=== PATIENT | male | born 1940 | race Caucasian/White ===

== ENCOUNTER → 2017-02-15 | Outpatient (CLI) | payer OTHER ==
[~2017-02-15] MED LIST: ASPI-113 PO; CARV3.122 PO; FURO20TA PO; LISI2.5T5 PO; NITR0.4S UT; SIMV80TA2 PO
[2017-02-15 13:14] LABS: ALT/SGPT 34 U/L (12-78); BLOOD UREA NITROGEN 22 mg/dl (7-18); BUN/CREATININE RATIO 21.5 (10-20); CALCIUM 10.1 mg/dl (8.5-10.1); CARBON DIOXIDE 23 mmol/L (21-32); CHLORIDE 106 mmol/L (98-107); CHOLESTEROL 156 mg/dl (0-200); GLUCOSE 104 mg/dl (70-99); POTASSIUM 4.6 mmol/L (3.5-5.1); SODIUM 138 mmol/L (136-145); TRIGLYCERIDES 483 mg/dl (0-150)
[2017-02-15 13:23] LABS: ESTIMATED AVERAGE GLUCOSE 143 mg/dl; HA1C FLAG Normal (Normal)
[2017-02-15 13:24] LABS: ALB/GLOB RATIO 1.1 (0.9-2); ALKALINE PHOSPHATASE 121 U/L (45-117); AST/SGOT 26 U/L (15-37); CHOLESTEROL/HDL RATIO 5.2; HDL CHOLESTEROL 30 mg/dl; PROSTATE SPECIFIC ANTIGEN 0.644 ng/ml (0.000-4.000)
== END | disposition home or self-care (01) ==
LOC: C.LABBFT 08:38
PROVIDERS: ATTEND Internal Medicine
DX: I11.0 Hypertensive heart disease with heart failure (principal); E78.00 Pure hypercholesterolemia, unspecified; I50.9 Heart failure, unspecified; D64.9 Anemia, unspecified; I48.91 Unspecified atrial fibrillation; E11.29 Type 2 diabetes mellitus with other diabetic kidney complication

== ENCOUNTER → 2017-04-03 | Outpatient (CLI) | payer OTHER ==
[~2017-04-03] MED LIST changes: +CEPH500C2 PO; +DIGO1TAB90 PO; +GLC/500 PO; +GLIM4TAB2 PO; +LOSA50TA6 PO; +SPIR25TA PO; +WARF-284 PO; +WARF5TAB7 PO
--- NOTE | 2017-04-03 13:47 | DIAGNOSTIC IMAGING REPORT ---
CHEST 2 VIEWS ROUTINE HISTORY: 76 years-old Male preoperative study without acute chest complaints. COMPARISON: Portable chest radiograph 07/15/2012 TECHNIQUE: The lateral views of the chest FINDINGS: Prior median sternotomy. Cardiac silhouette is again severely enlarged. There is mild pulmonary vascular congestion without overt pulmonary edema. Left pectoral pacer/defibrillator is noted with leads intact. There is an apparent left atrial exclusion device noted. No pneumothorax, pleural effusion or focal airspace consolidation. There is atherosclerosis of the aorta. The bones are grossly intact. IMPRESSION: Cardiomegaly and pulmonary vascular congestion without overt pulmonary edema or acute cardiopulmonary process. The above report was generated using voice recognition software. It may contain grammatical, syntax or spelling errors. Electronically signed by: Surjit Moran M.D. 04/03/2017 1:46 PM Dictated Date/Time: 04/03/2017 1:44 PM
[2017-04-03 14:44] LABS: BASO % 0.2 %; BASO ABS # 0.02 K/uL (0-0.2); COMPLETE YES; EOS % 1.3 %; HEMATOCRIT 40.2 % (42-52); IG% 0.9 %; LYMPH % 17.7 %; LYMPH ABS # 1.77 K/uL (1.2-3.4); MEAN CELL VOLUME 85.9 fL (80-100); MEAN CORPUSCULAR HGB CONC 32.6 g/dl (32-36); MONO % 7.1 %; NEUT % 72.8 %; PLATELET COUNT 240 K/uL (130-400); RED BLOOD COUNT 4.68 M/uL (4.7-6.1); WHITE BLOOD COUNT 10.01 K/uL (4.8-10.8)
[2017-04-03 15:00] LABS: BLOOD UREA NITROGEN 17 mg/dl (7-18); BUN/CREATININE RATIO 17.4 (10-20); CALCIUM 9.8 mg/dl (8.5-10.1); CARBON DIOXIDE 26 mmol/L (21-32); CHLORIDE 106 mmol/L (98-107); GLUCOSE 194 mg/dl (70-99); POTASSIUM 4.2 mmol/L (3.5-5.1); SODIUM 138 mmol/L (136-145)
[2017-04-03 15:01] LABS: INR 2.9 (0.9-1.1); PARTIAL THROMBOPLASTIN RATIO 1.8; PROTHROMBIN TIME (PATIENT) 31.9 SECONDS (9.0-12.0)
== END | disposition home or self-care (01) ==
LOC: C.RAD 13:08
PROVIDERS: ATTEND Internal Medicine Cardiovascular Disease
DX: I11.0 Hypertensive heart disease with heart failure (principal); I25.10 Atherosclerotic heart disease of native coronary artery without angina pectoris; Z95.810 Presence of automatic (implantable) cardiac defibrillator; E66.9 Obesity, unspecified; Z45.02 Encounter for adjustment and management of automatic implantable cardiac defibrillator; R09.89 Other specified symptoms and signs involving the circulatory and respiratory systems

== ENCOUNTER → 2017-04-12 | Day surgery (SDC) | payer OTHER ==
[~2017-04-12] VITALS: Ht 170.2 cm; Wt 102.5 kg
[~2017-04-12] MED LIST changes: +ACETAMINOPHEN 325 MG TAB PO PRN; +BACITRACIN 50000 UNIT VIAL ONE; +BACITRACIN OINT 0.9 GM PKT ONE; +CEFAZOLIN 2000 MG/60 ML D5W IV SCH; +CEFAZOLIN IV 1,000 MG in DEXTROSE 5% 50ML IV SCH; +FENTANYL CITRATE INJ 50 MCG/1 ML 2 ML VIAL ONE; +KETOROLAC TROMETHAMINE 10 MG TAB PO PRN; +MIDAZOLAM HCL 5 MG/ML 1 ML VIAL ONE
[2017-04-12 09:25] VITALS: BP 173/78; PULSE 66; TEMP 36.5; O2SAT 97; Ht 170.2 cm; Wt 102.5 kg
--- NOTE | 2017-04-12 09:59 | History & Physical Bridge Note ---
H&P Re-Evaluation Bridge Note: I have examined the patient, reviewed the History & Physical and in the interval since the performance of the History & Physical I have noted the following changes of clinical significance: No changes noted. I reviewed the indications, procedure, risks and alternatives to ICD replacement with possible lead replacement with the patient and his , they understand and he agrees to proceed. Alternatives reviewed. Consent obtained.
--- NOTE | 2017-04-12 09:59 | Procedure Note ---
Pre-Mod Sedation Assessment General Date of Moderate Sedation: Apr 12, 2017. Vital Signs: Vital Signs Past 12 Hours Date Time Temp Pulse Resp B/P (MAP) Pulse Ox O2 Delivery O2 Flow Rate FiO2 04/12/17 09:25 36.5 66 22 173/78 (109) 97 Room Air Review Cardiovascular: regular rate, rhythm Abdomen: normal bowel sounds Lungs: lungs clear Pre-Sedation Airway Assessment Oral Cavity: Dentures Hx of Sleep Apnea: No Smoking Status: Former Smoker Procedure Planning Contraindications-for Mod Sed: None Yes Notes The planned sedation has been discussed with the patient and consent obtained. I have identified the patient, determined the appropriateness of sedation and have assessed the patient immediately prior to the procedure. All medicine(s) and interventions are by my order.
[2017-04-12 11:34] VITALS: BP 146/61; PULSE 63; TEMP 36.6; O2SAT 96
--- NOTE | 2017-04-12 11:40 | [facility] Operative Report ---
Operative Report Operative Date Apr 12, 2017. Pre-Operative Diagnosis Biventricular ICD at replacement time Post-Operative Diagnosis same Procedure(s) Performed Biventricular ICD replacement Lead insulation repair Surgeon Dr. Escobar Safety Engineer Surgeon(s) none Estimated Blood Loss 30 cc Findings Stable lead measurements, ICD replaced using the original leads. One of the leads was in the subcutaneous tissue overlying the ICD, I was concerned the insulation may have been disrupted during the procedure therefore this was strengthened with a suture sleeve and silicon adhesive. No changes in measurements or impedance compared to preoperative measurements. Specimens Old ICD, return to [employer] Anesthesia local with sedation Complication(s) None Disposition Recovery Room / PACU Description of Procedure After obtaining informed consent for the procedure, the patient was brought to the laboratory being NPO after midnight. After identification in the laboratory the patient was prepped and draped in the standard sterile manner for a left- sided device replacement. The left prepectoral region was anesthetized with 1% lidocaine local anesthetic and once adequate anesthesia was obtained a 6 cm incision was made through the old implant scar and carried down to the ICD generator. The generator was dissected free of tissue and explanted. One of the leads was in the subcutaneous tissue overlying the device, the device had to be removed around this lead after dissecting the lead free of subcutaneous tissue. A bacitracin-soaked sponge(50,000 units in 50 cc normal saline solution) was placed in the pocket. The ICD was removed from the leads and connected to an external pacing system. Pacing and sensing characteristics were evaluated in both the right and left ventricular leads as noted on the implant data sheet. He was in atrial fibrillation throughout the procedure so atrial pacing could not be evaluated, atrial sensing and impedances were measured and are noted on the implant data sheet. A new ICD was attached to the leads and found to be functioning normally. The bacitracin-soaked sponge was removed from the pocket, the ICD was placed in the pocket. Out of concern that the insulation on the lead overlying the pacemaker (which had to be dissected free of tissue prior to explanted the device, although no change in impedance or threshold was observed) a suture sleeve filled with silicone adhesive was placed over the lead in the region of the incision and held in place using 3 ligatures of 2-0 silk. The incision was closed with a running double subcutaneous closure of 3-0 V-lock absorbable suture followed by a running subcuticular skin closure of 4-0 V lock absorbable suture. The patient tolerated the procedure well, there were no complications and the patient was transferred to the same-day surgery unit for observation and subsequent discharge. I attest to the content of the Intraoperative Record and any orders documented therein. Any exceptions are noted below.
--- NOTE | 2017-04-12 11:41 | Procedure Note ---
Post-Mod Sedation Assessment General Date of Moderate Sedation Apr 12, 2017. Vital Signs: Vital Signs Past 12 Hours Date Time Temp Pulse Resp B/P (MAP) Pulse Ox O2 Delivery O2 Flow Rate FiO2 04/12/17 11:12 70 16 135/83 (100) 98 Room Air 04/12/17 09:25 36.5 66 22 173/78 (109) 97 Room Air Review - Discharge Criteria Vital Signs Stable: Yes Alert/Oriented/Conversant: Yes Returned to Baseline Mental St: Yes Nausea Absent/Minimal: Yes Pain/Discomfort/Absent/Minimal: Yes Normal/Baseline Respirations: Yes Active Bleeding?: No
[2017-04-12 12:05] VITALS: BP 146/78; PULSE 59; O2SAT 97
[2017-04-12 12:32] VITALS: BP 146/69; PULSE 60; O2SAT 98
--- NOTE | 2017-04-12 12:41 | Discharge Instructions ---
Discharge Instructions Date of Service Apr 12, 2017. Admission Reason for Admission: ICD at recommended replacement time Discharge Discharge Diagnosis / Problem: ICD replacement Discharge Goals Goal(s): Improve disease control Activity Recommendations Activity Limitations: resume your previous activity . Instructions / Follow-Up Instructions / Follow-Up ACTIVITY RECOMMENDATIONS: * Do not raise affected arm over head for 2 weeks. SPECIAL CARE INSTRUCTIONS: * If bleeding occurs, apply direct pressure to area for 5 minutes. * Call your doctor if you have severe pain, fever, drainage or bleeding at site. * Keep dressing on and dry for 48 hours then remove. * Keep any scheduled doctor's appointment. * Implant Card - hand held device with website information given. SKIN IRRITATION: * You may experience some redness and/or swelling in the area where radiation was administered. If any skin irritation occurs, please contact your family physician. FOLLOW UP VISIT: Keep any scheduled doctor appointments. Current Hospital Diet Patient's current hospital diet: AHA Diet (Heart Healthy) Discharge Diet Recommended Diet: AHA Diet (Heart Healthy) Procedures Procedures Performed: Biventricular ICD replacement Pending Studies Studies pending at discharge: no Laboratory Results Hemoglobin A1c Test 02/15/17 08:40 Range/Units Estimated Average Glucose 143 mg/dl Hemoglobin A1c 6.6 H 4.5-5.6 % Lipid Panel Test 02/15/17 08:40 Range/Units Triglycerides Level 483 H 0-150 mg/dl Cholesterol Level 156 0-200 mg/dl HDL Cholesterol 30 mg/dl Cholesterol/HDL Ratio 5.2 LDL Cholesterol, Calculated mg/dl Medical Emergencies . Who to Call and When: Medical Emergencies: If at any time you feel your situation is an emergency, please call 911 immediately. . Non-Emergent Contact Non-Emergency issues call your: Primary Care Provider . . "Provider Documentation" section prepared by Lavon Escobar. . VTE Core Measure Inpt VTE Proph given/why not?: Warfarin (Coumadin)
[2017-04-12 13:03] VITALS: BP 134/66; PULSE 60; O2SAT 98
== END | disposition home or self-care (01) ==
LOC: C.ACU 08:42
PROVIDERS: ATTEND Internal Medicine Cardiovascular Disease
DX: Z45.02 Encounter for adjustment and management of automatic implantable cardiac defibrillator (principal); I25.10 Atherosclerotic heart disease of native coronary artery without angina pectoris; I11.0 Hypertensive heart disease with heart failure; E11.9 Type 2 diabetes mellitus without complications; I34.0 Nonrheumatic mitral (valve) insufficiency; E78.5 Hyperlipidemia, unspecified; Z79.01 Long term (current) use of anticoagulants; Z79.82 Long term (current) use of aspirin

== ENCOUNTER → 2017-05-30 | Outpatient (CLI) | payer OTHER ==
[~2017-05-30] MED LIST changes: -ACETAMINOPHEN 325 MG TAB PO PRN; -BACITRACIN 50000 UNIT VIAL ONE; -BACITRACIN OINT 0.9 GM PKT ONE; -CEFAZOLIN 2000 MG/60 ML D5W IV SCH; -CEFAZOLIN IV 1,000 MG in DEXTROSE 5% 50ML IV SCH; -FENTANYL CITRATE INJ 50 MCG/1 ML 2 ML VIAL ONE; -KETOROLAC TROMETHAMINE 10 MG TAB PO PRN; -LISI2.5T5 PO; -MIDAZOLAM HCL 5 MG/ML 1 ML VIAL ONE; -NITR0.4S UT
--- NOTE | 2017-05-30 16:12 | DIAGNOSTIC IMAGING REPORT ---
THORACIC SPINE 3 VIEWS ROUTINE HISTORY: 76 years-old Male M54.6 Acute thoracic back paincall with results acute back pain without reported trauma COMPARISON: Chest radiograph 04/03/2017 TECHNIQUE: Frontal and lateral views of the chest FINDINGS: 12 rib-bearing thoracic-type vertebral segments are present. Alignment is satisfactory. No compression deformity. Multilevel endplate spurring and facet arthrosis. Intervertebral disc space narrowing is seen most pronounced within the mid thoracic levels. Cervicothoracic junction is somewhat subvisualized secondary to soft tissue. Prior median sternotomy. Left atrial exclusion device noted. Prosthetic cardiac valvular ring noted. Pacer/ICD leads overlie the right atrium and right ventricle. IMPRESSION: Multilevel degenerative changes of the thoracic spine without acute fracture or subluxation. The above report was generated using voice recognition software. It may contain grammatical, syntax or spelling errors. Electronically signed by: Surjit Moran M.D. 05/30/2017 4:11 PM Dictated Date/Time: 05/30/2017 4:09 PM
--- NOTE | 2017-05-30 17:23 | DIAGNOSTIC IMAGING REPORT ---
L RIBS UNILATERAL WITH PA CHEST CLINICAL HISTORY: R07.81 Rib pain on left side please call with results COMPARISON STUDY: Chest 04/03/2017. FINDINGS: There is a 2.5 cm mass within the left upper lobe. Left-sided pacemaker is again noted. The heart remains mildly enlarged. Poststernotomy changes. No pleural effusions. No pneumothorax. No acute rib fractures identified. IMPRESSION: 1. No acute rib fractures. No pneumothorax. 2. A 2.5 cm left upper lobe nodular opacity. Recommend dedicated nonemergent chest CT to exclude a neoplasm. 3. These findings were called/faxed to the referring physician following dictation. Electronically signed by: Konstantin Waters M.D. 05/30/2017 5:22 PM Dictated Date/Time: 05/30/2017 5:11 PM
== END | disposition home or self-care (01) ==
LOC: C.RAD 15:18
PROVIDERS: ATTEND Internal Medicine
DX: M54.6 Pain in thoracic spine (principal); R07.81 Pleurodynia

== ENCOUNTER → 2017-06-20 | Outpatient (CLI) | payer OTHER ==
[~2017-06-20] MED LIST changes: -CEPH500C2 PO; +OXYC-57 PO
--- NOTE | 2017-06-20 13:41 | DIAGNOSTIC IMAGING REPORT ---
PET/CT HISTORY: R91.1 SOLITARY PULMONARY NODULE TECHNIQUE: PET/CT was performed from the base of the skull through the pelvis following the intravenous administration of 14.6 mCi of F18-FDG. Non-contrast CT imaging was performed over the same range without breath-hold for attenuation correction of PET images and anatomic correlation, but not for primary interpretation as it is not of standard diagnostic quality. CT DOSE: COMPARISON: Chest CT 06/05/2017. FINDINGS: HEAD AND NECK: There is a 2 cm FDG avid focus within the right posterior cerebellar hemisphere. This is suspicious for a metastatic lesion. This demonstrates intense FDG uptake with an SUV max of 12. No FDG avid or enlarged cervical lymph nodes. CHEST: FDG avid spiculated 2.4 cm nodule within the superior segment of the left lower lobe demonstrating an SUV max of 5.7. Mild FDG uptake within the mildly enlarged subcarinal lymph nodes demonstrating an SUV max of 3.3. Dominant subcarinal lymph node measures 2.1 x 1.0 cm. No FDG avid or enlarged hilar lymph nodes. The heart is enlarged. Left-sided pacemaker. Small left pleural effusion has slightly increased in size. Multiple pleural/extrapleural soft tissue nodules within the left lung base posteriorly. These demonstrate FDG uptake and are consistent with metastatic disease. There is also FDG uptake within the left pleural fluid consistent with a metastatic involvement. Dominant FDG avid pleural/extrapleural nodule seen within the left lung base on image 121 measures 1.4 x 0.7 cm. This demonstrates an SUV max of 3.4. Left pleural fluid FDG uptake measures an SUV max of 5.4. ABDOMEN/PELVIS: No FDG avid hepatic, splenic, adrenal masses. Left hepatic lobe and left renal cysts remain unchanged. No FDG avid abdominal or pelvic lymphadenopathy. Small fat-containing left inguinal hernia. Colonic diverticulosis. MUSCULOSKELETAL: Multiple FDG avid lytic lesions identified at C6, bilateral first ribs, left posterior 10th rib spinous process of L4, and within the left acetabulum. One of the left posterior 10th rib lytic lesions results in a pathologic fracture. Dominant lytic lesion within the left acetabulum measures 2.6 cm with an SUV max of 6.7. IMPRESSION: 1. A 2.4 cm FDG avid nodule within the superior segment of the left lower lobe. This favors a primary bronchogenic malignancy. 2. Mildly enlarged and FDG avid subcarinal lymph nodes concerning for metastatic disease. 3. FDG uptake within the small left pleural effusion and multiple small FDG avid left basilar pleural/extrapleural soft tissue nodules consistent with metastatic disease. 4. A 2 cm FDG avid focus within the right cerebellar hemisphere. This also likely represents a metastatic lesion. Follow-up brain MRI is recommended for further evaluation. 5. Multiple FDG avid lytic lesions within the osseous structures as described above consistent with additional sites of metastatic disease.. Electronically signed by: Konstantin Waters M.D. 06/20/2017 1:39 PM Dictated Date/Time: 06/20/2017 1:12 PM
== END | disposition home or self-care (01) ==
LOC: C.PET 10:25
PROVIDERS: ATTEND Surgery
DX: R91.1 Solitary pulmonary nodule (principal)

== ENCOUNTER 2017-06-22 05:10 | Day surgery (SDC) | payer OTHER ==
[2017-06-19 09:23] VITALS: BMI 36.0
[2017-06-19 14:41] LABS: BASO % 0.3 %; BASO ABS # 0.03 K/uL (0-0.2); COMPLETE YES; EOS % 1.1 %; IG% 0.6 %; LYMPH % 20.7 %; LYMPH ABS # 2.38 K/uL (1.2-3.4); MEAN CELL VOLUME 83.2 fL (80-100); MEAN CORPUSCULAR HEMOGLOBIN 28.1 pg (25-34); MEAN CORPUSCULAR HGB CONC 33.8 g/dl (32-36); MEAN PLATELET VOLUME 9.6 fL (7.4-10.4); MONO % 6.8 %; NEUT % 70.5 %; PLATELET COUNT 273 K/uL (130-400); RED BLOOD COUNT 4.69 M/uL (4.7-6.1); WHITE BLOOD COUNT 11.51 K/uL (4.8-10.8)
[2017-06-19 14:54] LABS: BUN/CREATININE RATIO 17.5 (10-20); CALCIUM 10.4 mg/dl (8.5-10.1); CREATININE 0.91 mg/dl (0.60-1.40)
[~2017-06-22] VITALS: Ht 170.2 cm; Wt 102.7 kg
[~2017-06-22 05:10] MED LIST changes: -OXYC-57 PO
[2017-06-22 05:39] VITALS: BP 183/92; PULSE 79; TEMP 36.5; O2SAT 96; Ht 170.2 cm; Wt 102.7 kg
[2017-06-22] MEDS ORDERED: OXYC-57 PO (06:01)
[2017-06-22 06:11] LABS: INR 1.2 (0.9-1.1); PARTIAL THROMBOPLASTIN RATIO 1.3; PROTHROMBIN TIME (PATIENT) 12.5 SECONDS (9.0-12.0)
[2017-06-22] MEDS ORDERED: LIDOCAINE HCL 2% 2 ML VIAL (20MG/ML) ONE (06:51)
[2017-06-22] MEDS ORDERED: DEXAMETHASONE SOD INJ 4 MG/ML VIAL ONE (06:51)
[2017-06-22] MEDS ORDERED: MIDAZOLAM HCL 1 MG/ML 2ML VIAL ONE (06:51)
[2017-06-22] MEDS ORDERED: PROPOFOL IV EMULSION 10 MG/ML 20 ML VIAL IV ONE (06:51)
[2017-06-22] MEDS ORDERED: FENTANYL CITRATE INJ 50 MCG/1 ML 2 ML VIAL ONE (06:51)
[2017-06-22] MEDS ORDERED: GLYCOPYRROLATE INJ 0.2 MG/ML VIAL ONE (06:51)
[2017-06-22] MEDS ORDERED: NEOSTIGMINE METHYLSULFATE 5 MG/5 ML SYR ONE ×2 (06:51→07:16)
[2017-06-22] MEDS ORDERED: ONDANSETRON INJ 2 MG/ML 2 ML VIAL ONE (06:51)
[2017-06-22] MEDS ORDERED: ROCURONIUM BROMIDE 10 MG/ML 5 ML VIAL IV ONE (07:02)
[2017-06-22] MEDS ORDERED: CLINDAMYCIN PHOS 150 MG/ML 2 ML VIAL ONE (07:16)
--- NOTE | 2017-06-22 07:33 | History & Physical Bridge Note ---
H&P Re-Evaluation Bridge Note: I have examined the patient, reviewed the History & Physical and in the interval since the performance of the History & Physical I have noted the following changes of clinical significance: No changes noted
--- NOTE | 2017-06-22 08:02 | Discharge Instructions ---
Discharge Instructions Date of Service Jun 22, 2017. Visit Reason for Visit: Lung Mass, Diabetes Discharge Discharge Diagnosis / Problem: Lung Mass Discharge Goals Goal(s): Learn about illness Activity Recommendations Activity Limitations: resume your previous activity (in 24 hours) Anesthesia . Post Anesthesia Instructions: If you have had General Anesthesia or IV Sedation: * Do not drive today. * Resume driving when surgeon permits. * Do not make important decisions or sign legal documents today. * Call surgeon for: 1. Temperature elevations greater than 101 degrees F. 2. Uncontrollable pain. 3. Excessive bleeding. 4. Persistent nausea and vomiting. 5. Medication intolerance (nausea, vomiting or rash). * For nausea and vomiting use only clear liquids such as: tea, soda, bouillon until nausea subsides, then gradually increase diet as tolerated. * If you have any concerns or questions, call your surgeon's office. If physician is unavailable and it is an emergency, call 911 or go to the nearest emergency room. . Instructions / Follow-Up Instructions / Follow-Up 1. You may cough up some blood. Call physician if excessive amount noted. 2. Due to an abnormality on your PET scan you will need a CT scan of your head. Dr. Almazan's office will arrange this for you and call you with the date and time. 3. Office appointment with Dr. Almazan in 1 week. Office will call you with date and time of appointment. Diet Recommendations Recommended Home Diet: resume previous diet Pending Studies Studies pending at discharge: no Medical Emergencies . Who to Call and When: Medical Emergencies: If at any time you feel your situation is an emergency, please call 911 immediately. . Non-Emergent Contact Non-Emergency issues call your: Surgeon Call Non-Emergent contact if: you have a fever, your pain is not controlled . . "Provider Documentation" section prepared by Thai Raya. .
[2017-06-22] MEDS ORDERED: ATROPINE SULFATE 0.1 MG/ML 5ML SYR IV PRN (08:15)
[2017-06-22] MEDS ORDERED: ONDANSETRON INJ 2 MG/ML 2 ML VIAL IV PRN (08:15)
[2017-06-22] MEDS ORDERED: EpHEDrine SULFATE INJ 50 MG/ML AMP IV PRN (08:15)
[2017-06-22] MEDS ORDERED: FENTANYL CITRATE INJ 50 MCG/1 ML 2 ML VIAL IV PRN (08:15)
[2017-06-22] MEDS ORDERED: LARYING-O-JET KIT (LTA) ONE ×2 (08:35)
--- NOTE | 2017-06-22 09:26 | DIAGNOSTIC IMAGING REPORT ---
CHEST 1 VIEW FRONTAL CLINICAL HISTORY: NAVIGATIONAL BRONCH TECHNIQUE: Image intensifier COMPARISON STUDY: None FINDINGS: Image intensifier usage for navigational bronchoscopy. IMPRESSION: Navigational bronchoscopy. The above report was generated using voice recognition software. It may contain grammatical, syntax or spelling errors. Electronically signed by: Anuel Beck M.D. 06/22/2017 9:25 AM Dictated Date/Time: 06/22/2017 9:24 AM
--- NOTE | 2017-06-22 09:38 | DIAGNOSTIC IMAGING REPORT ---
CHEST ONE VIEW PORTABLE CLINICAL HISTORY: 76 years-old Male presenting with FOB, lung mass. TECHNIQUE: Portable upright AP view of the chest was obtained. COMPARISON: 04/03/2017. FINDINGS: Left subclavian implanted cardiac defibrillator with leads to the right atrium and right ventricular apex. A coronary sinus or epicardial lead is also in place. Median sternotomy wires, prosthetic mitral valve, and left atrial appendage occlusion device unchanged. Atherosclerosis of aortic arch with prominence of the aortic contour, unchanged from prior. Cardiac silhouette mildly enlarged. Prominence of pulmonary vasculature. Redemonstration of the nodule in the superior segment of the left lower lobe. No new focal infiltrate. Trace left pleural effusion. No pneumothorax. Degenerative changes of the thoracic spine. Upper abdomen normal. IMPRESSION: 1. Redemonstration of left lung nodule and trace left pleural effusion. No new focal infiltrate. Electronically signed by: Monty Dunne M.D. 06/22/2017 9:36 AM Dictated Date/Time: 06/22/2017 9:31 AM
--- NOTE | 2017-06-22 09:55 | Anesthesiology Progress Note ---
Anesthesia Post Op Note Date & Time Jun 22, 2017 at 09:54 Vital Signs Pain Intensity: 0 Vital Signs Past 12 Hours Date Time Temp Pulse Resp B/P (MAP) Pulse Ox O2 Delivery O2 Flow Rate FiO2 06/22/17 09:50 36.0 61 15 155/77 96 Room Air 06/22/17 09:40 64 15 155/86 99 Nasal Cannula 2 06/22/17 09:30 63 14 155/81 99 Oxymask 5 06/22/17 09:21 36.1 70 14 158/86 99 Oxymask 10 06/22/17 05:39 36.5 79 18 183/92 (122) 96 Room Air Notes Mental Status: alert / awake / arousable, participated in evaluation Pt Amnestic to Procedure: Yes Nausea / Vomiting: adequately controlled Pain: adequately controlled Airway Patency, RR, SpO2: stable & adequate BP & HR: stable & adequate Hydration State: stable & adequate Anesthetic Complications: no major complications apparent
[2017-06-22 10:00] VITALS: BP 156/78; PULSE 70; TEMP 36.9; O2SAT 97
[2017-06-22 11:00] VITALS: BP_SYST 121; BP_SYST 153; BP_DIAS 59; BP_DIAS 78; PULSE 60; TEMP 36.7; O2SAT 94
--- NOTE | 2017-06-22 12:02 | OPERATIVE REPORT ---
DATE OF OPERATION: 06/22/2017 PREOPERATIVE DIAGNOSIS: Suspicious mass, superior segment left lower lobe. POSTOPERATIVE DIAGNOSIS: Same. PROCEDURES: 1. Endobronchial ultrasound with biopsy. 2. Navigational bronchoscopy with brushings biopsy forceps and washings. ANESTHESIA: General anesthesia endotracheal intubation. SURGEON: Bryan Almazan MD AVIATION CONSULTANT: TOY Marino SPECIFICS OF PROCEDURE: Jesus Craft is a 76-year-old male who has a hypermetabolic mass, which certainly looks like a cancer in the superior segment of the left lower lobe. I saw the patient in the office and ordered a PET scan and set him up for a navigational bronchoscopy and endobronchial ultrasound for staging and possible diagnosis. His PET scan was done earlier this week and the patient has a possible cerebral met; however, this did not get his full brain. He has a pacemaker and is not a candidate for an MRI, so we are going to get a dedicated CT scan of his head. In the meantime, I still think that a tissue diagnosis is important. The PET of his chest was concerning. The mass lit up and is hypermetabolic, which is expected. However, there are some pleural changes, which were also worrisome. At this point, we elected to proceed with an endobronchial ultrasound biopsy and a navigational bronchoscopy. DESCRIPTION OF PROCEDURE: On 06/22/2017, the patient was brought to the operating room and underwent an endotracheal intubation with an 8.5 endotracheal tube. Prophylactic antibiotics were given and an appropriate time-out called. The endobronchial ultrasound scope was then placed. He really did not have much in the way of lymphadenopathy. I biopsied the right level 10, right level 11, level 7, left level 10, and left level 11. We did get some lymphocytes back, although these nodes were very small and not hypermetabolic. We got into no bleeding with this. After irrigating this out, we then switched over to fiberoptic bronchoscope. We then registered the patient and then using the navigational probe, we went out to the superior segment in the lower lobe mass. It was a difficult to navigate as this is the superior segment of the lower lobe and we went out with our navigational probe and then used our radial ultrasound probe to assure that we were in proper position. Brushings, needle biopsies, forceps and then biopsies and then a bronchial wash was done. I then slowly withdrew the bronchoscope and suctioned out all blood and debris. We really did get into no active bleeding with this. There were no endobronchial lesions. There was really not much in the way of sputum either. The bronchoscope was removed. He was awakened from anesthesia and transported back to the post-anesthesia care unit in stable condition. TOY Marino, was there for the duration of the case and was helpful in stablizing the scope in and in exchanging instruments. I attest to the content of the Intraoperative Record and any orders documented therein. Any exceptions are noted below. ROMEO
--- NOTE | 2017-06-22 12:13 | Anesthesiology Progress Note ---
Anesthesia Post Op Note Date & Time Jun 22, 2017 at 12:13 Vital Signs Pain Intensity: 0 Vital Signs Past 12 Hours Date Time Temp Pulse Resp B/P (MAP) Pulse Ox O2 Delivery O2 Flow Rate FiO2 06/22/17 11:00 36.7 60 18 121/59 94 Room Air 06/22/17 10:30 36.8 62 18 153/78 (103) 94 Room Air 06/22/17 10:00 36.9 70 16 156/78 97 Room Air 06/22/17 09:50 36.0 61 15 155/77 96 Room Air 06/22/17 09:40 64 15 155/86 99 Nasal Cannula 2 06/22/17 09:30 63 14 155/81 99 Oxymask 5 06/22/17 09:21 36.1 70 14 158/86 99 Oxymask 10 06/22/17 05:39 36.5 79 18 183/92 (122) 96 Room Air Notes Mental Status: alert / awake / arousable, participated in evaluation Pt Amnestic to Procedure: Yes Nausea / Vomiting: adequately controlled Pain: adequately controlled Airway Patency, RR, SpO2: stable & adequate BP & HR: stable & adequate Hydration State: stable & adequate Anesthetic Complications: no major complications apparent
== END 2017-06-22 11:28 | disposition home or self-care (01) ==
LOC: C.ACU 05:10
PROVIDERS: ATTEND Surgery
DX: R91.1 Solitary pulmonary nodule (principal); E11.9 Type 2 diabetes mellitus without complications; I25.10 Atherosclerotic heart disease of native coronary artery without angina pectoris; G47.33 Obstructive sleep apnea (adult) (pediatric); I48.91 Unspecified atrial fibrillation; I50.9 Heart failure, unspecified; E78.00 Pure hypercholesterolemia, unspecified; I25.2 Old myocardial infarction; Z95.1 Presence of aortocoronary bypass graft; Z87.891 Personal history of nicotine dependence; Z79.01 Long term (current) use of anticoagulants; Z79.899 Other long term (current) drug therapy; E66.9 Obesity, unspecified; Z68.36 Body mass index [BMI] 36.0-36.9, adult; Z80.49 Family history of malignant neoplasm of other genital organs; Z82.49 Family history of ischemic heart disease and other diseases of the circulatory system

== ENCOUNTER → 2017-06-27 | Outpatient (CLI) | payer OTHER ==
[~2017-06-27] MED LIST changes: +OPTIRAY 320 IV PRN; +OXYC-57 PO
--- NOTE | 2017-06-27 10:28 | DIAGNOSTIC IMAGING REPORT ---
CT HEAD COMBO CT DOSE: 1459.56 mGycm TECHNIQUE: Noncontrast images were obtained through the brain in the axial plane. The sequence was repeated following administration of 95 Optiray 320. A dose lowering technique was utilized adhering to the principles of ALARA. 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 Abnormal head CT with a possible intracranial metastasis. COMPARISON: PET/CT scan dated 08/10/2016 FINDINGS: There is a 5.6 cm left frontal mass. This demonstrates mixed attenuation on noncontrast studies and may contain internal calcification. There is subtle postcontrast enhancement. It is difficult to determine with this lesion is intra or extra-axial. In addition there is enhancing 22 mm right cerebellar mass. Again it is difficult to determine whether this is intra or extra-axial. If possible, an MRI the brain would be quite useful in follow-up. There are minimal white matter hypodensities likely on a small vessel basis. There is no evidence of pathologic ventricular dilatation. There is no evidence of acute sinusitis IMPRESSION: 1. Mixed attenuation 5.6 cm left frontal mass with subtle postcontrast enhancement. It is conceivable that this is an extra-axial lesion. There is no associated vasogenic edema. The lesion is not felt to be typical for a metastatic deposit. 2. 22 mm enhancing dural based right cerebellar mass. Again it is difficult to determine with this is an intra or extra-axial lesion. 3. If possible, an MRI the brain would be quite useful in follow-up Electronically signed by: Chin Mendoza M.D. 06/27/2017 10:27 AM Dictated Date/Time: 06/27/2017 10:18 AM
== END ==
LOC: C.CTS 09:39
PROVIDERS: ATTEND Surgery
DX: R91.1 Solitary pulmonary nodule (principal); G93.89 Other specified disorders of brain

== ENCOUNTER → 2017-07-18 | Day surgery (SDC) | payer OTHER ==
[~2017-07-18] VITALS: Ht 170.2 cm; Wt 98.0 kg
[~2017-07-18] MED LIST changes: +ACET-1256 PO; +HYDR-3419 PO; -OPTIRAY 320 IV PRN
[2017-07-18 09:11] VITALS: BP 140/79; PULSE 68; TEMP 36.3; O2SAT 95; Ht 170.2 cm; Wt 98.0 kg
[2017-07-18 09:22] LABS: PLATELET COUNT 269 K/uL (130-400)
[2017-07-18 09:32] LABS: INR 1.8 (0.9-1.1); PARTIAL THROMBOPLASTIN RATIO 1.6; PROTHROMBIN TIME (PATIENT) 18.6 SECONDS (9.0-12.0)
== END | disposition home or self-care (01) ==
LOC: C.ACU 08:32
PROVIDERS: ATTEND Surgery
DX: R06.02 Shortness of breath (principal); Z53.9 Procedure and treatment not carried out, unspecified reason

== ENCOUNTER → 2017-08-13 | Outpatient (CLI) | payer OTHER ==
[~2017-08-13] MED LIST changes: -ACET-1256 PO; +DRGTP12 TD; -HYDR-3419 PO; -OXYC-57 PO; +OXYC7.5T65 PO
== END | disposition home or self-care (01) ==
LOC: C.PATHSPEC 17:35
PROVIDERS: ATTEND Plastic Surgery
DX: C44.40 Unspecified malignant neoplasm of skin of scalp and neck (principal); Z85.118 Personal history of other malignant neoplasm of bronchus and lung

== ENCOUNTER 2017-08-21 10:48 | Inpatient (IN) | payer OTHER ==
[2017-08-21] VITALS (11 sets, daily range): BP systolic 144–169; BP diastolic 81–99; PULSE 60–66; TEMP 36.2–36.8; O2SAT 97–99; BMI 32.4
[~2017-08-21] VITALS: Ht 170.2 cm; Wt 83.5 kg
[2017-08-21] MEDS ORDERED: HYDROmorphone INJ 1 MG/ML SYR IV STA ×2 (10:51→14:14)
[2017-08-21] MEDS ORDERED: ONDANSETRON INJ 2 MG/ML 2 ML VIAL IV STA (10:51)
[2017-08-21] MEDS ORDERED: MoRPHine SULFATE 10 MG/ML CARP/VIAL ONE (11:05)
--- NOTE | 2017-08-21 11:13 | EMERGENCY ROOM VISIT NOTE ---
History Report prepared by Hany: Galindo Goldstein Under the Supervision of: Dr. Rajesh Escobedo M.D. First contact with patient: 10:49 Stated Complaint: GENERALIZED PAIN History of Present Illness The patient is a 76 year old male who presents to the Emergency Room with complaints of an INR level of 8.0 that was recorded this morning. Earlier today , the patient's home health nurse found the patient's INR to be elevated. 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 He is currently experiencing pain to his collar bone and uses Fentanyl patches as pain management. He arrived to the ER via EMS, who gave him Morphine 10 mg IV which helped his pain. He is supposed to follow up with Dr. Zaragoza of Oncology tomorrow. He denies any other abnormal symptoms at this time. Source of History: patient Onset: recorded this morning Position: other (Global) Symptom Intensity: INR 8.0 Quality: other (Abnormal laboratory results) Timing: constant Note: He is having pain to his collar bone. He denies any other abnormal symptoms at this time. Review of Systems See HPI for pertinent positives & negatives. A total of 10 systems reviewed and were otherwise negative. Past Medical & Surgical Medical Problems: (1) Anemia (2) Aortic stenosis (3) Atrial fibrillation (4) Biventricular ICD (implantable cardioverter-defibrillator) in place (5) Cardiomyopathy (6) DM II (diabetes mellitus, type II), controlled (7) HLD (hyperlipidemia) (8) HTN (hypertension) (9) Non-small cell carcinoma of lung (10) Systolic CHF Surgical Problems: (1) S/P CABG x 3 Family History Omitted secondary to the patient's age. Social History Smoking Status: Former Smoker Smokeless Tobacco Use: No Drug Use: none Occupation Status: retired Current/Historical Medications Scheduled Aspirin Enteric Coated (Ecotrin Or Generic), 325 MG PO QAM Carvedilol (Coreg), 3.125 MG PO BID Digoxin (Digitek), 0.25 MG PO HS Fentanyl (Fentanyl), 25 MCG TD [id number] Furosemide (Lasix), 20 MG PO QAM Glimepiride (Glimepiride), 4 MG PO BID Losartan Potassium (Cozaar), 50 MG PO QAM Metformin Hcl (Glucophage), 1,000 MG PO BID Simvastatin (Zocor), 40 MG PO QPM Spironolactone (Aldactone), 25 MG PO QAM Warfarin Sod (Jantoven), 5 MG PO [id number] Warfarin Sodium (Warfarin Sodium), 7.5 MG PO tu-sun Scheduled PRN Oxycodone/Acetaminophen 7.5MG/325MG (Percocet 7.5MG/325MG), 1 TAB PO Q4 PRN for Pain Allergies Coded Allergies: No Known Allergies (Unverified , 08/21/17) Physical Exam Vital Signs Date Time Temp Pulse Resp B/P (MAP) Pulse Ox O2 Delivery O2 Flow Rate FiO2 08/21/17 12:45 81 20 139/84 97 Room Air 08/21/17 11:31 94 Nasal Cannula 4.0 08/21/17 11:04 74 08/21/17 10:50 36.4 94 20 118/95 93 Room Air 08/21/17 10:50 93 Room Air Physical Exam GENERAL: Patient is a healthy-appearing well-nourished male HEAD: Normocephalic atraumatic EYES: Ocular movements intact pupils equal and react to light OROPHARYNX mucous membranes are moist no exudates present no erythema or edema present NECK: Supple no nuchal rigidity CHEST: Good equal expansion LUNGS: Decreased breath sounds on the left. CARDIAC: Normal S1 and S2 ABDOMEN: Soft nontender no guarding BACK: No CVA tenderness EXTREMITIES: No pain upon palpation normal muscle strength in all groups no clubbing cyanosis or edema NEURO: Patient is following commands and answering questions appropriately. Alert and oriented x3 Cranial Nerves 2-12 grossly intact Medical Decision & Procedures ER Provider Diagnostic Interpretation: Radiology results as stated below per my review and radiologist interpretation: CHEST ONE VIEW PORTABLE HISTORY: Atypical CHEST PAIN COMPARISON: Chest 06/22/2017. FINDINGS: Large left pleural effusion which has significantly increased in size. The heart remains enlarged. Left-sided pacemaker is noted. There are poststernotomy changes. There is mild central pulmonary vascular congestion without overt edema. No pneumothorax. Consolidation within the left perihilar location. This may represent atelectasis from the large left pleural effusion. IMPRESSION: 1. Large left pleural effusion which has increased in size. 2. Mild pulmonary vascular congestion without overt edema. Electronically signed by: Konstantin Waters M.D. 08/21/2017 11:10 AM Dictated Date/Time: 08/21/2017 11:09 AM Laboratory Results Test 08/21/17 11:31 Total Bilirubin 0.3 mg/dl (0.2-1) Direct Bilirubin < 0.1 mg/dl (0-0.2) Aspartate Amino Transf (AST/SGOT) 15 U/L (15-37) Alanine Aminotransferase (ALT/SGPT) 30 U/L (12-78) Alkaline Phosphatase 93 U/L (45-117) Total Creatine Kinase 29 U/L (39-308) Creatine Kinase MB 1.8 ng/ml (0.5-3.6) Creatine Kinase MB Ratio 6.2 (0-3.0) Troponin I 0.021 ng/ml (0-0.045) Total Protein 6.7 gm/dl (6.4-8.2) Albumin 2.4 gm/dl (3.4-5.0) Lipase 111 U/L (73-393) Labs reviewed by ED physician. Medications Administered Medications (Trade) Dose Ordered Sig/Taryn Route Start Time Stop Time Status Last Admin Dose Admin Hydromorphone HCl (Dilaudid Inj) 1 mg NOW STAT IV 08/21/17 10:51 08/21/17 10:54 DC 08/21/17 11:25 1 MG Ondansetron HCl (Zofran Inj) 4 mg NOW STAT IV 08/21/17 10:51 08/21/17 10:55 DC 08/21/17 11:25 4 MG Phytonadione (Mephyton Tab) 5 mg NOW STAT PO 08/21/17 12:24 08/21/17 12:25 DC 08/21/17 12:44 5 MG Oxycodone/ Acetaminophen (Percocet 7.5-325MG Tab) 1 tab Q4 PRN PO 08/21/17 14:00 09/04/17 13:59 08/22/17 05:38 1 TAB Morphine Sulfate (MoRPHine SULFATE INJ) 4 mg Q2H PRN IV 08/21/17 14:00 09/04/17 13:59 08/22/17 04:21 4 MG ECG Indication: other (Abnormal Lab Results) Rate (beats per minute): 67 Rhythm: other (Paced) Findings: no acute ischemic change, no ectopy ED Course 1049: Past medical records reviewed. The patient was evaluated in room C3. A complete history and physical examination was performed. 1051: Ordered Zofran Inj 4 mg IV, Dilaudid Inj 1 mg IV 1219: Ordered Phytonadione 10 mg/Sodium Chloride 51 ml @ 102 mls/hr IV 1224: Ordered Mephyton Tab 5 mg PO 1259: Upon reexamination the patient is resting. I discussed results and treatment plan with the patient. He verbalizes agreement and understanding. I spoke with Dr. Rosales from the [place] [facility]. The patient will be evaluated for further management. Medical Decision Differential diagnosis: Etiologies such as metabolic, infection, hypo/hyperglycemia, electrolyte abnormalities, cardiac sources, intracerebral event, toxicologic, neurologic, as well as others were entertained. This is a 76-year-old male who presents emergency department complaining of right collarbone pain as well as a supratherapeutic INR. The patient's INR in the emergency department was found to be 10 area for this reason he was given oral vitamin K. The patient's left pleural effusion has greatly increased since his last x-ray in June. In addition he is diaphoretic and requiring oxygen. Based on these findings I did discuss the case with the hospitalist service who agreed to admit the patient. Patient family were in agreement with the treatment plan. Medication Reconcilliation Current Medication List: was personally reviewed by me Blood Pressure Screening Patient's blood pressure: Normal blood pressure Blood pressure disposition: Did not require urgent referral Consults Time Called: [phone] Consulting Physician: Dr. Rosales - [facility] [place] Returned Call: [phone] I discussed the patient's case with Dr. Rosales, she has agreed to evaluate the patient for further management and care. Impression Primary Impression: Pleural effusion Additional Impressions: Hypoxia Supratherapeutic INR Scribe Attestation The scribe's documentation has been prepared under my direction and personally reviewed by me in its entirety. I confirm that the note above accurately reflects all work, treatment, procedures, and medical decision making performed by me. Departure Information Dispostion Being Evaluated By Hospitalist Referrals No Doctor, Assigned (PCP) Problem Qualifiers
[2017-08-21 11:47] LABS: BASO % 0.1 %; BASO ABS # 0.01 K/uL (0-0.2); EOS % 0.1 %; EOS ABS # 0.01 K/uL (0-0.5); HEMATOCRIT 35.1 % (42-52); HEMOGLOBIN 11.5 g/dL (14.0-18.0); LYMPH % 2.6 %; LYMPH ABS # 0.36 K/uL (1.2-3.4); MEAN CELL VOLUME 82.2 fL (80-100); MEAN CORPUSCULAR HEMOGLOBIN 26.9 pg (25-34); MEAN CORPUSCULAR HGB CONC 32.8 g/dl (32-36); MEAN PLATELET VOLUME 8.9 fL (7.4-10.4); MONO % 4.7 %; MONO ABS # 0.66 K/uL (0.11-0.59); NEUT % 91.8 %; NEUT ABS # 12.93 K/uL (1.4-6.5); PLATELET COUNT 265 K/uL (130-400); RED CELL DISTRIBUTION WIDTH CV 15.2 % (11.5-14.5); WHITE BLOOD COUNT 14.07 K/uL (4.8-10.8)
[2017-08-21 12:06] LABS: ALBUMIN 2.4 gm/dl (3.4-5.0); ALT/SGPT 30 U/L (12-78); AST/SGOT 15 U/L (15-37); BLOOD UREA NITROGEN 19 mg/dl (7-18); CALCIUM 9.6 mg/dl (8.5-10.1); CARBON DIOXIDE 25 mmol/L (21-32); CREATININE 0.79 mg/dl (0.60-1.40); GLUCOSE 183 mg/dl (70-99); LIPASE 111 U/L (73-393); POTASSIUM 4.3 mmol/L (3.5-5.1); SODIUM 134 mmol/L (136-145)
[2017-08-21 12:11] LABS: ALKALINE PHOSPHATASE 93 U/L (45-117); CKMB 1.8 ng/ml (0.5-3.6); TOTAL PROTEIN 6.7 gm/dl (6.4-8.2)
[2017-08-21 12:14] LABS: INR > 10.0 (0.9-1.1)
[2017-08-21] MEDS ORDERED: PHYTONADIONE INJ 10 MG in SODIUM CHLORIDE 0.9% 50ML 50 ML IV STA (12:19)
[2017-08-21] MEDS ORDERED: PHYTONADIONE 5 MG TAB PO STA (12:24)
--- NOTE | 2017-08-21 13:28 | History and Physical ---
History & Physical Date & Time of Service: Aug 21, 2017 at 13:16 Chief Complaint: Generalized Pain Primary Care Physician: Stuart Johnston M.D. 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 Pt is present with his . Pt recently completed XRT therapy ( Jul 31 - Aug 17 x 10 cycles) to the right hip and pelvis. He reports pain is somewhat improved in the hip and low back but reports pain migrates to different locations. Currently he has pain in the right shoulder which is new x 5 days. Pts and he admit that shortness of breath has increased in the past 4-5 days and has worsened to the point where he cannot speak long sentences, and is easily winded with small movements. He is currently on 4L with adequate sats. The patient has not walked since prior to XRT. He uses a scooter to get around his house. Pt also has had night terrors which occur nightly which have worsened over the past 2 months. He recently had pain medication increased - fentanyl patch from 12.5 to 25 but denies that this increase has made night terrors worse. In regards to pain control, he see's little different with the medication adjustment. Pt has also had increased sporadic periods of confusion : last Sunday family was over for dinner and he became confused and aggitated and was removed from the dinner table. It took 45min-1 hour to calm him down. Pt had a planned appointment with Dr. Zaragoza tomorrow to discuss chemotherapy regimen options. The patient is being primarily cared for by his , but has no help from outside agencies which he would likely benefit from. CXR was reviewed showing large left sided pleural effusion. INR > 10. Vit K 5 mg IV was administered. Hgb stable at 11.5. Other electrolytes WNL. Past Medical/Surgical History Medical Problems: (1) Anemia (2) Aortic stenosis (3) Atrial fibrillation (4) Biventricular ICD (implantable cardioverter-defibrillator) in place (5) Cardiomyopathy (6) DM II (diabetes mellitus, type II), controlled (7) HLD (hyperlipidemia) (8) HTN (hypertension) (9) Non-small cell carcinoma of lung (10) Systolic CHF Surgical Problems: (1) S/P CABG x 3 Social History Smoking Status: Former Smoker Smokeless Tobacco Use: No Drug Use: none Marital Status: Housing status: lives with family Occupational Status: retired Immunizations History of Influenza Vaccine: Yes Influenza Vaccine Date: May 15, 2012 History of Tetanus Vaccine?: Yes History of Pneumococcal: Yes History of Hepatitis B Vaccine: No Multi-Drug Resistant Organisms History of MDRO: No Allergies Coded Allergies: No Known Allergies (Unverified , 08/21/17) Home Medications Scheduled Aspirin Enteric Coated (Ecotrin Or Generic), 325 MG PO QAM Carvedilol (Coreg), 3.125 MG PO BID Digoxin (Digitek), 0.25 MG PO HS Fentanyl (Fentanyl), 25 MCG TD [id number] Furosemide (Lasix), 20 MG PO QAM Glimepiride (Glimepiride), 4 MG PO BID Losartan Potassium (Cozaar), 50 MG PO QAM Metformin Hcl (Glucophage), 1,000 MG PO BID Simvastatin (Zocor), 40 MG PO QPM Spironolactone (Aldactone), 25 MG PO QAM Warfarin Sod (Jantoven), 5 MG PO q-a-o--sat Warfarin Sodium (Warfarin Sodium), 7.5 MG PO -sun Scheduled PRN Oxycodone/Acetaminophen 7.5MG/325MG (Percocet 7.5MG/325MG), 1 TAB PO Q4 PRN for Pain Review of Systems Constitutional: + weakness, + fatigue, No fever, No chills, No sweats Eyes: No redness, No diplopia ENT: No sore throat, No trouble swallowing Respiratory: + shortness of breath, + dyspnea at rest, No cough, No sputum, No wheezing, No hemoptysis Cardiovascular: No chest pain, No palpitations Abdomen: No pain, No nausea, No vomiting, No diarrhea, No constipation Musculoskeletal: + joint pain, No swelling, No calf pain Genitourinary - Male: + urinary retention, No hematuria, No dysuria Neurologic: + weakness, No numbness/tingling, No balance problems Psychiatric: + problem reported (night terrors) Endocrine: + fatigue Integumentary: No rash, No itch Physical Exam Vital Signs Date Time Temp Pulse Resp B/P (MAP) Pulse Ox O2 Delivery O2 Flow Rate FiO2 08/21/17 12:45 81 20 139/84 97 Room Air 08/21/17 11:31 94 Nasal Cannula 4.0 08/21/17 11:04 74 08/21/17 10:50 36.4 94 20 118/95 93 Room Air 08/21/17 10:50 93 Room Air General Appearance: WD/WN, no apparent distress, + obese Head: normocephalic, atraumatic Eyes: PERRL, EOMI ENT: hearing grossly normal, pharynx normal Neck: supple, no JVD Respiratory/Chest: + pertinent finding (on 4L via NC, absent breath sounds Left posterior manley, + crackles at right base. ) Cardiovascular: regular rate, rhythm, + systolic murmur (grade III/ LLSB) Abdomen/GI: normal bowel sounds, soft, + tenderness (RUQ ) Back: normal inspection Extremities/Musculoskelatal: no calf tenderness, no pedal edema Neurologic/Psych: alert, normal mood/affect, oriented x 3 Skin: normal color, warm/dry Diagnostics Laboratory Results Results Past 24 Hours Test 08/21/17 11:31 08/21/17 11:32 Range/Units Prothrombin Time > 100.0 9.0-12.0 SECONDS Prothromb Time International Ratio > 10.0 0.9-1.1 Sodium Level 134 136-145 mmol/L Potassium Level 4.3 3.5-5.1 mmol/L Chloride Level 101 98-107 mmol/L Carbon Dioxide Level 25 21-32 mmol/L Anion Gap 8.0 3-11 mmol/L Blood Urea Nitrogen 19 7-18 mg/dl Creatinine 0.79 0.60-1.40 mg/dl Est Creatinine Clear Calc Drug Dose 88.2 ml/min Estimated GFR () 101.8 Estimated GFR (Non- 87.8 BUN/Creatinine Ratio 24.7 10-20 Random Glucose 183 70-99 mg/dl Calcium Level 9.6 8.5-10.1 mg/dl Total Bilirubin 0.3 0.2-1 mg/dl Direct Bilirubin < 0.1 0-0.2 mg/dl Aspartate Amino Transf (AST/SGOT) 15 15-37 U/L Alanine Aminotransferase (ALT/SGPT) 30 12-78 U/L Alkaline Phosphatase 93 45-117 U/L Total Creatine Kinase 29 39-308 U/L Creatine Kinase MB 1.8 0.5-3.6 ng/ml Creatine Kinase MB Ratio 6.2 0-3.0 Troponin I 0.021 0-0.045 ng/ml Total Protein 6.7 6.4-8.2 gm/dl Albumin 2.4 3.4-5.0 gm/dl Lipase 111 73-393 U/L White Blood Count 14.07 4.8-10.8 K/uL Red Blood Count 4.27 4.7-6.1 M/uL Hemoglobin 11.5 14.0-18.0 g/dL Hematocrit 35.1 42-52 % Mean Corpuscular Volume 82.2 80-100 fL Mean Corpuscular Hemoglobin 26.9 25-34 pg Mean Corpuscular Hemoglobin Concent 32.8 32-36 g/dl Platelet Count 265 130-400 K/uL Mean Platelet Volume 8.9 7.4-10.4 fL Neutrophils (%) (Auto) 91.8 % Lymphocytes (%) (Auto) 2.6 % Monocytes (%) (Auto) 4.7 % Eosinophils (%) (Auto) 0.1 % Basophils (%) (Auto) 0.1 % Neutrophils # (Auto) 12.93 1.4-6.5 K/uL Lymphocytes # (Auto) 0.36 1.2-3.4 K/uL Monocytes # (Auto) 0.66 0.11-0.59 K/uL Eosinophils # (Auto) 0.01 0-0.5 K/uL Basophils # (Auto) 0.01 0-0.2 K/uL RDW Standard Deviation 45.0 36.4-46.3 fL RDW Coefficient of Variation 15.2 11.5-14.5 % Immature Granulocyte % (Auto) 0.7 % Immature Granulocyte # (Auto) 0.10 0.00-0.02 K/uL Diagnostic Radiology CHEST ONE VIEW PORTABLE HISTORY: Atypical CHEST PAIN COMPARISON: Chest 06/22/2017. FINDINGS: Large left pleural effusion which has significantly increased in size. The heart remains enlarged. Left-sided pacemaker is noted. There are poststernotomy changes. There is mild central pulmonary vascular congestion without overt edema. No pneumothorax. Consolidation within the left perihilar location. This may represent atelectasis from the large left pleural effusion. IMPRESSION: 1. Large left pleural effusion which has increased in size. 2. Mild pulmonary vascular congestion without overt edema. Electronically signed by: Konstantin Waters M.D. 08/21/2017 11:10 AM Dictated Date/Time: 08/21/2017 11:09 AM The status of this report is Signed. EKG Ventricular-paced rhythm with fusion complexes Abnormal ECG When compared with ECG of 12-APR-2017 13:12, Vent. rate has increased BY 6 BPM Vent. 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 Large left pleural effusion in the setting of NSCLC with mets to brain, pelvis, hip - Admit to med/surg - Thoracic surgery consulted for pleurex catheter placement and drainage: pt has been administered Vit K 5 mg IV, will transfuse 2 U FFP and recheck INR within [address] Almazan on board. - Hgb stable at 11.5, hold coumadin. - Pulmonary consulted for management - spoke with Dr. Gordon over the phone. - Heme/onc consulted: follows with Dr. 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 -Pt has tenderness in the RUQ with palpation and reported postprandial pain. Checking U/S abd RUQ for gallbladder involvement. CAD s/p CABG x 3 vessels Chronic systolic CHF with EF = 20 % HTN Afib - Currently rate controlled, continue home meds. : digoxin 250 mcg daily, carvedilol 3.125 mg BID, lasix 20 mg daily, losartan 50 mg daily - Check digoxin level - Repeat ECHO - HOLD coumadin : home regimen 5 mg all days except on Tu/Fri 7.5 mg HLD - Continue simvastatin 40 mg HS DVT ppx: No chemical with supratherapeutic INR and pleurex cath insertion, Teds , scds CODE STATUS: FULL - Code status was discussed in detail with pt and , at this time they want full code. They would like to discuss this with Dr. Zaragoza, consider palliative consultation tomorrow. Level of Care Med/Surg Resuscitation Status FULL RESUSCITATION VTE Prophylaxis Risk Level: Low Given or contraindicated: Jesús Redmond, SCD's Reviewed: Pt Seen/Exam by Me History Physician Curriculum Facilitator Supervision Note: I interviewed and examined the patient. Discussed with TOY Moreno and agree with findings and plan as documented in the note. Any exceptions or clarifications are listed here: Patient is a 76-year-old male with a history of recently diagnosed metastatic non-small cell lung carcinoma who presented with progressive shortness of breath , weakness, and home nurse found his INR to be greater than 10. He is not currently having any symptoms of bleeding. His hemoglobin is fairly close to normal, but he was found to have a very large left sided pleural effusion and acute hypoxemic respiratory failure on admission. He is also having some postprandial epigastric pain, as well as constant posterior right shoulder pain in addition to his migrating bony pain in other places thought to be secondary to his metastases. He was given vitamin K 5 mg IV 1 in the ER. Vitals reviewed NAD, alert awake oriented Regular rate and rhythm, 2/6 systolic ejection murmur at the right upper sternal border Lungs with diminished breath sounds through almost entire left lung manley, with wheezes and crackles on the right side Abdomen positive bowel sounds, soft, positive tenderness to palpation in the right upper quadrant without guarding or rebound tenderness Extremities positive tenderness to palpation exquisitely over the right posterior shoulder, trace pitting edema in the legs bilaterally Abdominal ultrasound with fatty liver, otherwise no evidence of cholelithiasis or cholecystitis Chest x-ray reviewed personally and agree with large left-sided pleural effusion This is a 76 yo F with PMHx of NSCLC with mets to brain, bones, CAD s/p CABG x 3 vessels, with SVG to LAD, biventricular ICD placement in 2013, Afib, HTN, HLD , chronic systolic CHF with EF = 20%, and aortic stenosis who presents after home health nursing checked INR and was > 10, along with progressive shortness of breath and weakness. Acute hypoxemic respiratory failure/large left-sided pleural effusion-most likely a malignant effusion, but could have some element of acute on chronic systolic CHF. This could also be a hemothorax given his significantly elevated INR -Reversing coagulopathy with vitamin K and FFP in preparation for thoracentesis and/or possible Pleurx catheter placement, follow INR and appreciate thoracic surgery consultation -Pleural fluid studies will be more telling after completed -Continue home by mouth Lasix for now, could institute more aggressive IV diuresis if this is determined to be CHF related -Overall very poor prognosis given his metastatic disease, severe CHF -Continue supportive care with supplemental oxygen, pain control Documented By: Eri Rosales
[2017-08-21] MEDS ORDERED: ACETAMINOPHEN 325 MG TAB PO PRN (14:00)
[2017-08-21] MEDS ORDERED: ONDANSETRON INJ 2 MG/ML 2 ML VIAL IV PRN (14:00)
[2017-08-21] MEDS ORDERED: MoRPHine SULFATE 2 MG/ML CARP IV PRN (14:00)
[2017-08-21] MEDS ORDERED: POLYETHYLENE (MIRALAX) 17 GM PACK PO PRN (14:00)
[2017-08-21] MEDS ORDERED: PIPERACILL/TAZOBAC IV 4.5 GM in DEXTROSE 5% 100ML 100 ML IV SCH (14:45)
[2017-08-21] MEDS ORDERED: PIPERACILL/TAZOBAC CONSULT ACTIVE PRN (14:45)
--- NOTE | 2017-08-21 15:35 | Medical Consult ---
Consultation Note Date of Service Aug 21, 2017. Consultation Note CONSULT DICTATED# [id number]
[2017-08-21] MEDS ORDERED: PIPERACILLIN/TAZOBACTAM 4.5 GM/100ML D5W IV ONE (16:00)
--- NOTE | 2017-08-21 16:09 | CONSULTATION REPORT ---
DATE OF CONSULTATION: 08/21/2017 REASON FOR CONSULTATION: Left pleural effusion. HISTORY OF PRESENT ILLNESS: This 76-year-old male is known to our service. The patient has a history of non-small cell lung cancer. The patient notes that he has had increasing shortness of breath over the past 4-5 days that he notes it is worse with any type of activity. He notes that he is relatively comfortable at rest. He denies any chest pain. He denies any fevers, shakes or chills, but has noted some sweats. He has not had any falls or syncopal episodes. The patient was seen by home health nursing and he had an INR checked that was noted to be greater than 10 and he was referred to the Emergency Department for this and due to his symptoms as noted above. Concerning other symptoms, again there were no falls or head injuries. He denies any blurry or double vision. He denies tinnitus, vertigo, epistaxis, sore throat, or neck pain. He does not note any chest pain, but did note pain in his right shoulder. He is short of breath particularly with activity. He denies any orthopnea. He does note that his breathing is no different whether he is lying flat or sitting upright. He has not had any nausea, vomiting or diarrhea. His notes that he has been drinking adequate amount of fluid, but notes that his appetite appears to be somewhat decreased and he is not eating as much solid food as usual. He denies any dysuria. He denies any history of DVT or PE. He denies anxiety or depression and there have been no reported seizures. In the Emergency Department, the patient did undergo a chest x-ray, which revealed that the patient had a large left pleural effusion that appeared to be increased in size when compared to older chest x-rays. Labs consisted of a chemistry profile, where sodium is 134 and BUN is 19. Creatinine and potassium were noted to be within normal range. Coagulation studies revealed an INR of greater than 10. A CBC showed white blood cell count 14.0, hemoglobin and hematocrit 11.5 and 35.1 and platelet count was normal. Thus far in the Emergency Department, the patient due to his high INR has received 5 mg of oral vitamin K. He has also received orders to get 2 units of fresh frozen plasma with plans to recheck an INR. At the time of my exam, the patient was able to converse in full sentences without any overt dyspnea while talking at this time. PAST MEDICAL HISTORY: Includes, 1. Non-small cell lung cancer. 2. History of systolic CHF with an ejection fraction of 20%. 3. Anemia. 4. Diabetes. 5. Hypertension. 6. Hyperlipidemia. PAST SURGICAL HISTORY: Includes: 1. Coronary artery bypass grafting. 2. BiV ICD. 3. Skin biopsy of his scalp. ALLERGIES: None. OUTPATIENT MEDICATION REGIMEN: Includes the followin. Aspirin 325 mg daily. 2. Coreg 3.125 mg twice daily. 3. Digitek 0.25 mg daily. 4. Fentanyl 25 mcg patch every 3 days. 5. Lasix 20 mg daily. 6. Glimepiride 4 mg twice daily. 7. Cozaar 50 mg daily. 8. Glucophage 1000 mg twice daily. 9. Percocet as needed for pain. 10. Zocor 40 mg daily. 11. Aldactone 25 mg daily. 12. Coumadin 5 mg on Sunday, Sunday, Sunday, and Sunday and 7.5 mg on Tuesdays and Fridays. SOCIAL HISTORY: Former smoker. REVIEW OF SYSTEMS: As noted above. PHYSICAL EXAMINATION: VITAL SIGNS: The patient is afebrile. Temperature 36.4, pulse 66 and regular, respirations are 20 and nonlabored at the time of my exam, blood pressure 139/84, and pulse ox 98% on 4 liters. GENERAL: The patient is alert. He is oriented x3. He is in no distress at this time. HEENT: His head has a bandage over the left side of his scalp where a previous biopsy was performed. No other trauma was noted. Eyes: Pupils equal, round and reactive to light and accommodation. His extraocular motions are intact. Ears: Auditory acuity is grossly intact. Nose: Nasal patency was intact. Sinuses are nontender. Mouth: Has dry mucous membranes. NECK: Supple. I did not appreciate any JVD. CARDIOVASCULAR: Regular rate and rhythm. LUNGS: Revealed that the patient had markedly decreased breath sounds on the left side. He was not using accessory muscles to aid in respiration at the time of my exam. ABDOMEN: Soft and nontender. EXTREMITIES: Revealed no cyanosis, clubbing or pitting edema. NEUROLOGIC: Revealed cranial nerves II through XII are grossly intact. He can move all 4 extremities without noted focal deficits. DIAGNOSTIC DATA: As noted above. IMPRESSION: A 76-year-old male with large pleural effusion. PLAN: Due the patient's shortness of breath, we will plan on draining this fluid; however, due to his high INR, we would like to have his INR decreased to an acceptable level. We will tentatively plan on a PleurX catheter, but again this needs to be performed once his INR has decreased. The medical service has already ordered 2 units of FFP with plans to recheck an INR. I have discussed with the patient and his and they wish to proceed once his INR is at a safe level and we will likely perform this tomorrow morning.
--- NOTE | 2017-08-21 16:31 | ECHOCARDIOGRAM REPORT ---
*NOTICE TO RECEIVING REPUBLICAN AGENCY This information is strictly Confidential and protected under [place] law. [place] law prohibits you from making any further disclosure of this information unless further disclosure is expressly permitted by the written consent of the person to whom it pertains or is authorized by law. A general authorization for the release of medical or other information is not sufficient for this purpose. Hospital accepts no responsibility if the information is made available to any other person, INCLUDING THE PATIENT. Interpretation Summary * Name: KERI CLAROS Study Date: 08/21/2017 02:38 PM BP: 163/94 mmHg * Patient Location: [facility] HR: 63 * : 1940 (M/d/yyyy) Gender: Male Height: 67 in * Age: 76 yrs Ethnicity: [place] Weight: 206 lb * Ordering Physician: Donita Moreno * Referring Physician: UNKNOWN * Performed By: Polina Iverson RCS * * Reason For Study: CHF * BSA: 2.0 m2 * -- Conclusions -- * The study was technically difficult. * There were technical limitations due to patient'sPoor acoustic windows secondary to severe lung disease. * The left ventricle is mildly dilated. * There is borderline concentric left ventricular hypertrophy. * Left ventricular systolic function is severely reduced. * There is severe global hypokinesis of the left ventricle. * The left atrium is severely dilated. * The right atrium is mild to moderately dilated. * The aortic valve is sclerotic with reduced opening. * Large left pleural effusion. Procedure Details * A complete two-dimensional transthoracic echocardiogram was performed (2D, M-mode, Doppler and color flow Doppler). * The study was technically difficult. * There were technical limitations due to patient'sPoor acoustic windows secondary to severe lung disease. * A contrast injection of Definity was performed to improve assessment of LV function. * Contrast was injected into an intravenous site in the right arm. * One vial of Definity ultrasound contrast was diluted in normal saline to a total volume of 10 ml. A total of '2' ml of solution was administered during imaging. * Lot # [id number] of Definity utilized for procedure. * Expiration date 1 SEP 24. * The attending nurse who injected the contrast agent was ROMEO BROOKE, RN. Left Ventricle * The left ventricle is mildly dilated. * There is borderline concentric left ventricular hypertrophy. * Ejection Fraction = 15-20%. * Left ventricular systolic function is severely reduced. * There is severe global hypokinesis of the left ventricle. Right Ventricle * The right ventricle is normal in size and function. * There is a pacemaker lead in the right ventricle. Atria * The left atrium is severely dilated. * The right atrium is mild to moderately dilated. Mitral Valve * The mitral valve is not well visualized. Tricuspid Valve * The tricuspid valve is not well visualized. Aortic Valve * The aortic valve is sclerotic with reduced opening. * There is no significant aortic regurgitation. Pericardium/Pleural * There is no pericardial effusion. * Large left pleural effusion. Great Vessels * Normal inferior vena cava diameter and respiratory variation suggests normal central venous pressure. MMode 2D Measurements and Calculations IVSd 1.5 cm IVSs 1.3 cm LVIDd 5.6 cm LVIDs 4.5 cm LVPWd 1.3 cm LVPWs 1.9 cm IVS/LVPW 1.2 FS 19.2 % EDV(Teich) 153.6 ml ESV(Teich) 93.7 ml EF(Teich) 39.0 % EDV(cubed) 175.5 ml ESV(cubed) 92.7 ml EF(cubed) 47.2 % % IVS thick -14.05 % % LVPW thick 50.8 % LV mass(C)d 336.7 grams LV mass(C)dI 164.5 grams/m\S\2 LV mass(C)s 302.3 grams LV mass(C)sI 147.6 grams/m\S\2 SV(Teich) 59.9 ml SI(Teich) 29.3 ml/m\S\2 SV(cubed) 82.8 ml SI(cubed) 40.5 ml/m\S\2 LA dimension 5.3 cm LVOT diam 2.0 cm LVOT area 3.3 cm\S\2 Doppler Measurements and Calculations PA V2 max 95.8 cm/sec PA max PG 3.7 mmHg PI max ben 182.0 cm/sec PI max PG 13.3 mmHg PI dec slope 101.9 cm/sec\S\2 PI P1/2t 523.2 msec
--- NOTE | 2017-08-21 16:36 | PULMONARY CONSULTATION ---
DATE OF CONSULTATION: 08/21/2017 DATE OF CONSULTATION: 08/21/2017 at 1500 REASON FOR CONSULTATION: Left pleural effusion in a patient with non-small cell carcinoma of the lung. HISTORY OF PRESENT ILLNESS: A 76-year-old white male was admitted by Sravani Moreno, physician assistant chief train dispatcher with the [facility] early this afternoon. 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 He also has a history of coronary artery disease status post CABG x3 vessel with an SVG to the LAD, a biventricular ICD placement in 2012, history of paroxysmal atrial fibrillation, CHF with an EF of 20%, aortic stenosis and has been on chronic anticoagulant therapy in the form of Coumadin since his biventricular ICD placement. The patient had just been administered morphine while he is undergoing ultrasound, so I spoke with his . She states he has become progressively more dyspneic over the past several weeks, specifically the past several days, but has had right-sided shoulder discomfort over the past 5 days. Workup including chest x-ray on admission shows a massive left-sided pleural effusion. He had adequate saturation on 4 liters. He uses a scooter to get around in his house and has been on a fentanyl patch with problems with nightmares apparently. He was scheduled to see Dr. Zaragoza tomorrow for followup after completing his radiation therapy. His INR was greater than 10 on admission, he was given 5 mg of IV vitamin K and I was consulted. I asked that 2 units of fresh frozen plasma would be given which he is currently receiving. The patient underwent navigational bronchoscopy with EBUS with Dr. Almazan on 06/22/2017. PET scan had shown a hypermetabolic mass involving the left lower lobe. His note suggests he saw a neoplastic process involving the superior segment. Navigational bronchoscopy with EBUS was carried out. The right level 10, right level 11, level 7 and left lower 10 and level 11 were biopsied. Navigational bronchoscopy was carried out as well. The patient presented with left rib pain in June 2017 and the CAT scan confirmed the presence of a mass measuring 2.3 cm that was pleural based involving the region of the superior segment left lower lobe. This had increased since 2010, the lesion had increased in size compared to 2010. There was a new enhancing lesion in the liver as well and right posterior cerebellar hemisphere suggested a metastatic lesion as well. There were FDG avid lytic lesions involving C6 bilateral 1st ribs, left posterior 10th rib, spinous process and L4 as well as left acetabulum. The 11th and posterior 10th rib lesion was a lytic lesion that appeared to represent also pathologic fracture. The left lower lobe lesion revealed atypical epithelial cells were not diagnostic. He then underwent CT scan of the brain 06/27/2017 which revealed a 5.6 cm left frontal mass and a 2.2 cm right cerebellar mass. CT guided needle placement and needle biopsy on 07/20/2017 of the left lower lobe lesion was consistent with non-small cell carcinoma with inability to differentiate between adenocarcinoma and squamous carcinoma. In the interim, the patient had complained of left middle low back pain and pelvic pain as well as pain with deep breathing. His skin nodule on the left forehead was painful and that was biopsied by Dr. Fay Dhaliwal. The patient then underwent palliative radiation therapy and now is being considered for palliative systemic chemotherapy. He is being admitted for further evaluation and therapy. Ultrasound apparently has been done to rule out gallbladder disease as well. PHYSICAL EXAMINATION: CURRENT VITAL SIGNS: Temperature 36.4, pulse 66 and regular, respiratory rate 30, blood pressure 163/94, O2 sat 98% on 4 liters. SKIN: Warm and dry. HEAD, EYES, EARS, NOSE, AND THROAT: Atraumatic, normocephalic, PERRLA, EOMI. Conjunctivae pink. Sclerae nonicteric. NECK: Veins not distended at 45 degrees. No obvious adenopathy. LUNGS: Virtually absent breath sounds left base. CARDIAC: Regular rate and rhythm. I do not appreciate a gallop. ABDOMEN: Soft, protuberant. EXTREMITIES: Trace pedal edema. No clubbing. Peripheral cyanosis. NEUROLOGICAL: Difficult to assess given the use of morphine administration. Chest x-ray shows large left pleural effusion has increased in size since 06/22/2017 with a suggestion of mild pulmonary vascular congestion as well. PET CT scan on 06/20/2017 showed a 2.4 cm FDG avid nodule in the superior segment left lower lobe with FDG avid subcarinal lymph nodes and a small left pleural effusion with multiple left basilar pleural and extrapleural soft tissue nodules as well as focus within the right cerebellar hemisphere. There were numerous lytic lesions enumerated. LABORATORY DATA: White count 14,000, H&H 11.5 and 35.1, BUN and creatinine 19 and 0.79. PT/INR greater than 10. OVERALL ASSESSMENT: A 76-year-old with history of non-small cell carcinoma metastatic to brain, bone and probable liver, now with a large left pleural effusion, most probably consistent with metastatic disease. The patient also has a reduced EF at 20% and I believe there is an element of fluid overload. I suspect the right shoulder pain is referred pain either from the point of the bony metastasis involving the cervical vertebrae or perhaps rib or referred pain from right hemidiaphragmatic process. I doubt that this represents gallbladder disease as well. The patient will need to be given fresh frozen plasma and have his INR reversed. He has already been given 5 mg IV vitamin K. I think we can hold off emergently draining the fluid until his INR corrects in which case, I would recommend a PleurX catheter be placed given the size of the effusion and probable etiology as a malignant effusion as well. We will follow along with you.
[2017-08-21] MEDS ORDERED: PIPERACILL/TAZOBAC IV 3.375 GM in DEXTROSE 5% 100ML 100 ML IV ONE (18:00)
--- NOTE | 2017-08-21 18:51 | SURGICAL CONSULTATION ---
DATE OF CONSULTATION: 08/21/2017 HISTORY OF PRESENT ILLNESS: Mr. Craft was seen today. He has some metastatic disease. We have been trying to get a definite diagnosis. He underwent a biopsy of a skin lesion on his forehead which came up rather acutely last week by Dr. Dhaliwal and this does indeed show this patient has metastatic lung carcinoma, which is stage IV. He now has shortness of breath and has a very large left pleural effusion. The patient is not using accessory muscles, but he is short of breath. On 4 liters, he has 98% saturation. His INR was over 10 with a PT over 100 and he has now been reversed with vitamin K as well as fresh frozen plasma. His hemoglobin really has not dropped blood much. It was 13.2 back in June is now 11.5. It is possible we are dealing with a hemothorax due to his coagulopathic state now. We will see what his PT/INR is and draining his left effusion tomorrow would be indicated. We may well proceed with thoracentesis, although a PleurX catheter insertion could also be considered. We will see how he looks in the morning. For specifics of his case, refer to full consult by Mr. Raya. ROMEO
[2017-08-21] MEDS: CARVEDILOL 3.125 MG TAB PO SCH (19:54)
[2017-08-21] MEDS: MoRPHine SULFATE 4 MG/ML 1 ML CARP\\VIAL IV PRN ×2 (20:47→22:11)
[2017-08-21] MEDS ORDERED: FENTANYL PATCH REMOVE & WASTE SCH (20:59)
[2017-08-21] MEDS ORDERED: FENTANYL 25 MCG/HR TDSY TD SCH (21:00)
[2017-08-21] MEDS: OXYCODONE/ACETAMINOPHEN 7.5-325 TAB PO PRN (21:27)
[2017-08-21] MEDS: SIMVASTATIN 40 MG TAB PO SCH (21:28)
[2017-08-21] MEDS: DIGOXIN 0.25 MG TAB PO SCH (21:28)
--- NOTE | 2017-08-21 22:59 | DIAGNOSTIC IMAGING REPORT ---
ABDOMEN LIMITED (US) HISTORY: Pain. Nausea. RUQ. COMPARISON: None. FINDINGS: Pancreas: Poorly seen due to overlying bowel content Liver: Fatty infiltration. Small cystic and benign hemangioma Gallbladder: No gallbladder wall thickening. No gallstones. CBD: 6.5 mm Right kidney: No hydronephrosis. IMPRESSION: Fatty infiltration of liver. Poor visibility of the pancreas due to overlying bowel content. Otherwise negative study. The above report was generated using voice recognition software. It may contain grammatical, syntax or spelling errors. Electronically signed by: Anuel Beck M.D. 08/21/2017 10:58 PM Dictated Date/Time: 08/21/2017 10:56 PM
[2017-08-21 23:10] LABS: INR 2.5 (0.9-1.1)
[2017-08-22] VITALS (9 sets, daily range): BP systolic 128–175; BP diastolic 73–88; PULSE 61–77; TEMP 36.3–36.8; O2SAT 92–99; Ht 170.2 cm; Wt 83.5 kg
[2017-08-22] MEDS: CHECK FENTANYL PATCH PLACEMENT SCH ×4 (00:21→23:44)
[2017-08-22] MEDS: PIPERACILL/TAZOBAC IV 3.375 GM in DEXTROSE 5% 100ML 100 ML IV SCH ×4 (00:21→23:44)
[2017-08-22] MEDS ORDERED: PHYTONADIONE INJ 5 MG in SODIUM CHLORIDE 0.9% 50ML 50 ML IV ONE (01:30)
[2017-08-22] MEDS: MoRPHine SULFATE 4 MG/ML 1 ML CARP\\VIAL IV PRN ×4 (04:21→20:55)
[2017-08-22 04:23] LABS: EOS % 0.3 %; EOS ABS # 0.04 K/uL (0-0.5); HEMATOCRIT 33.5 % (42-52); HEMOGLOBIN 10.8 g/dL (14.0-18.0); LYMPH % 3.7 %; LYMPH ABS # 0.46 K/uL (1.2-3.4); MEAN CELL VOLUME 83.1 fL (80-100); MEAN CORPUSCULAR HEMOGLOBIN 26.8 pg (25-34); MEAN CORPUSCULAR HGB CONC 32.2 g/dl (32-36); MEAN PLATELET VOLUME 8.6 fL (7.4-10.4); MONO % 6.1 %; MONO ABS # 0.76 K/uL (0.11-0.59); NEUT % 89.1 %; NEUT ABS # 11.12 K/uL (1.4-6.5); PLATELET COUNT 224 K/uL (130-400); RED CELL DISTRIBUTION WIDTH CV 15.2 % (11.5-14.5); RED CELL DISTRIBUTION WIDTH SD 46.3 fL (36.4-46.3); WHITE BLOOD COUNT 12.48 K/uL (4.8-10.8)
[2017-08-22 04:39] LABS: INR 1.8 (0.9-1.1)
[2017-08-22 04:42] LABS: CALCIUM 10.2 mg/dl (8.5-10.1); CREATININE 0.68 mg/dl (0.60-1.40); POTASSIUM 4.6 mmol/L (3.5-5.1)
[2017-08-22] MEDS: OXYCODONE/ACETAMINOPHEN 7.5-325 TAB PO PRN ×3 (05:38→16:51)
--- NOTE | 2017-08-22 07:44 | DIAGNOSTIC IMAGING REPORT ---
CHEST ONE VIEW PORTABLE HISTORY: 76 years-old Male S/P THORACENTESIS left pleural effusion status post thoracentesis. COMPARISON: Chest radiograph 08/21/2017 TECHNIQUE: Portable AP view of the chest FINDINGS: Cardiac silhouette is moderately enlarged. Left subclavian pacer/AICD is unchanged. Left atrial exclusion device noted. Prior median sternotomy. Atherosclerosis of the aorta. The right lung is generally clear. Pulmonary vascular congestion noted. There is decreased size of a moderate left pleural effusion with the improved aeration of the left lung. No postprocedural pneumothorax identified. Bones of the chest appear grossly intact. IMPRESSION: 1. Decreased size of moderate left pleural effusion status post thoracentesis. No postprocedural pneumothorax identified. 2. Cardiomegaly with pulmonary vascular congestion. The above report was generated using voice recognition software. It may contain grammatical, syntax or spelling errors. Electronically signed by: Surjit Moran M.D. 08/22/2017 7:43 AM Dictated Date/Time: 08/22/2017 7:40 AM
--- NOTE | 2017-08-22 07:51 | Clinical Documentation Query ---
DAY Gallegos : CLINICAL DOCUMENTATION QUERY Patient is a 76 year old female admitted for treatment of an INR > 10 and large left malignant effusion. No clinical diagnosis exists for note of elevated INR. As appropriate, consider documentation as suggested below as this impacts DRG assignment and appears to be the primary reason for admission initially. Thank you. In your clinical opinion is this patient being managed for: ( ) Coumadin coagulopathy ( ) Not Agree ( x ) Other explanation of clinical findings (Please Explain) Likely due to poor nutrition ( ) Unable to determine (Please Define) ( ) Need to Discuss The medical record reflects the following clinical findings, treatment, and risk factors. Clinical Indicators: As above Treatment: FFP, Vitamin K, serial coagulation studies Risk Factors: Coumadin therapy Please clarify and document your clinical opinion in the progress notes and discharge summary. Terms such as "probable", "suspected", "likely", "questionable", "possible", or "still to be ruled out" are acceptable. IF IN AGREEMENT, YOU MUST DOCUMENT ABOVE DIAGNOSTIC STATEMENT IN DAILY PROGRESS NOTES AND DISCHARGE SUMMARY. This document is not part of the patient's record. Thank You, Angelo Carrion, RN [phone]
[2017-08-22] MEDS: LOSARTAN POTASSIUM 50 MG TAB PO SCH (08:02)
[2017-08-22] MEDS: FUROSEMIDE 20 MG TAB PO SCH (08:02)
[2017-08-22] MEDS: SPIRONOLACTONE 25 MG TAB PO SCH (08:02)
[2017-08-22] MEDS: ASPIRIN 325 MG ECTAB PO SCH (08:03)
[2017-08-22] MEDS: CARVEDILOL 3.125 MG TAB PO SCH ×2 (08:03→20:29)
--- NOTE | 2017-08-22 08:12 | Oncology Consultation ---
Oncology/Heme Consultation Date of Consultation: Aug 22, 2017. Attending Physician: Eri Rosales MD Reason for Consultation: Metastatic adenocarcinoma most likely lung primary History of Present Illness Mr. Craft is a 76-year-old gentleman with a history of adenocarcinoma most likely lung primary that is widely metastatic. He first presented to our clinic on August 01. The notes reflect that his state of health was quite well until May this year when he developed a fractured rib. X-rays which show a lung nodule. A left lower lobe nodule was seen that was FDG avid as well as subcarinal lymph nodes and a small left pleural effusion. There is also an FDG avid focus seen in the cerebellar hemisphere. Lytic lesions were also seen in the bony skeleton. He went on to see receive radiation therapy to painful bony areas including the acetabulum. He has lost 20-25 pounds during that time. A scalp nodule was felt and biopsied. This returned as adenocarcinoma. It has been sent off for biomarker studies. He is now admitted with shortness of breath and enlarging pleural effusion. The fluid was drained during this hospitalization. He was scheduled to visit with Dr. Roberts in our clinic actually today for thoughts on chemotherapy. His performance status is easily graded at 3.0. He states that he spends most of his day in his favorite chair or bed. Past Medical/Surgical History Medical Problems: (1) Hypoxia Status: Acute (2) Pleural effusion Status: Acute (3) Supratherapeutic INR Status: Acute Social History Smoking Status: Former Smoker Smokeless Tobacco Use: No Drug Use: none Marital Status: Occupation Status: retired Allergies Coded Allergies: No Known Allergies (Unverified , 08/21/17) Home Medications Scheduled Aspirin Enteric Coated (Ecotrin Or Generic), 325 MG PO QAM Carvedilol (Coreg), 3.125 MG PO BID Digoxin (Digitek), 0.25 MG PO HS Fentanyl (Fentanyl), 25 MCG TD [id number] Furosemide (Lasix), 20 MG PO QAM Glimepiride (Glimepiride), 4 MG PO BID Losartan Potassium (Cozaar), 50 MG PO QAM Metformin Hcl (Glucophage), 1,000 MG PO BID Simvastatin (Zocor), 40 MG PO QPM Spironolactone (Aldactone), 25 MG PO QAM Warfarin Sod (Jantoven), 5 MG PO [id number] Warfarin Sodium (Warfarin Sodium), 7.5 MG PO [id number] Scheduled PRN Oxycodone/Acetaminophen 7.5MG/325MG (Percocet 7.5MG/325MG), 1 TAB PO Q4 PRN for Pain Current Inpatient Medications Current Inpatient Medications Medications (Trade) Dose Ordered Sig/Taryn Route Start Time Stop Time Status Last Admin Dose Admin Acetaminophen (Tylenol Tab) 650 mg Q4H PRN PO 08/21/17 14:00 09/20/17 13:59 Polyethylene (Miralax Powder Packet) 17 gm DAILY PRN PO 08/21/17 14:00 09/20/17 13:59 Ondansetron HCl (Zofran Inj) 4 mg Q6H PRN IV 08/21/17 14:00 09/20/17 13:59 Aspirin (Ecotrin Tab) 325 mg QAM PO 08/22/17 08:00 09/21/17 08:59 08/22/17 08:03 325 MG Carvedilol (Coreg Tab) 3.125 mg BID PO 08/21/17 20:00 09/20/17 20:59 08/22/17 08:03 3.125 MG Digoxin (Lanoxin Tab) 0.25 mg HS PO 08/21/17 21:00 09/20/17 20:59 08/21/17 21:28 0.25 MG Fentanyl (Duragesic Patch) 25 mcg Q72H TD 08/21/17 21:00 09/04/17 20:59 08/21/17 20:44 25 MCG Furosemide (Lasix Tab) 20 mg QAM PO 08/22/17 08:00 09/21/17 08:59 08/22/17 08:02 20 MG Losartan Potassium (coZAAR TAB) 50 mg QAM PO 08/22/17 08:00 09/21/17 08:59 08/22/17 08:02 50 MG Oxycodone/ Acetaminophen (Percocet 7.5-325MG Tab) 1 tab Q4 PRN PO 08/21/17 14:00 09/04/17 13:59 08/22/17 05:38 1 TAB Simvastatin (Zocor Tab) 40 mg QPM PO 08/21/17 21:00 09/20/17 20:59 1/16/18 21:28 40 MG Spironolactone (Aldactone Tab) 25 mg QAM PO 08/22/17 08:00 09/21/17 08:59 08/22/17 08:02 25 MG Morphine Sulfate (MoRPHine SULFATE INJ) 4 mg Q2H PRN IV 08/21/17 14:00 09/04/17 13:59 08/22/17 04:21 4 MG Morphine Sulfate (MoRPHine SULFATE INJ) 2 mg Q2H PRN IV 08/21/17 14:00 09/04/17 13:59 Miscellaneous Information (Consult) 1 ea UD PRN N/A 08/21/17 14:45 09/20/17 14:44 Piperacillin Sod/ Tazobactam Sod 3.375 gm/Dextrose 115 ml @ 28.75 mls/ hr Q8H IV 08/22/17 00:00 08/28/17 17:59 08/22/17 08:01 28.75 MLS/HR Miscellaneous (Fentanyl Patch Remove & Waste) 1 ea Q72H N/A 08/21/17 20:59 09/20/17 20:58 08/21/17 20:41 1 EA Miscellaneous Information (Check Fentanyl Patch Placement) 1 ea QS N/A 08/22/17 00:00 09/21/17 00:00 08/22/17 08:01 1 EA Review of Systems Constitutional: Negative for night sweats, or fever. Positive for weight Eyes: Negative for event change of vision ENT: Negative for epistaxis, nasal discharge, sore throat, or deafness Cardiovascular: Negative for chest pain, palpitations, dizziness, diaphoresis Respiratory: Negative for hemoptysis, or purulent cough. Positive for shortness of breath Gastrointestinal: Negative for diarrhea, hematemesis, melena, nausea, vomiting , or dyspepsia Integumentary (skin): Negative for rash or jaundice discoloration Genitourinary: Negative for urinary frequency, hematuria, or dysuria Neurological: Negative for weakness, seizure activity, headache, or dizziness Lymphatic/Hematologic: Negative for petechiae, bleeding or new adenopathy Musculoskeletal: He states that his bones tend to hurt him in a very nonspecific pattern and way Allergic/Immunologic: Negative for unusual rash or pruritis. Physical Exam Date Time Temp Pulse Resp B/P (MAP) Pulse Ox O2 Delivery O2 Flow Rate FiO2 08/22/17 07:55 36.5 66 18 164/88 (113) 97 Room Air 08/22/17 04:00 36.6 67 20 167/82 (110) 98 4.0 08/22/17 01:06 36.8 61 20 175/88 (117) 99 Nasal Cannula 4.0 08/22/17 00:15 Nasal Cannula 4.0 08/21/17 21:28 66 08/21/17 21:05 36.7 64 18 144/81 98 4.0 08/21/17 20:37 36.8 64 18 168/99 97 4.0 08/21/17 20:19 36.6 66 18 150/90 98 4.0 08/21/17 19:50 36.6 64 18 169/95 98 08/21/17 19:28 36.6 61 18 145/81 98 2.0 08/21/17 18:15 36.2 62 18 155/89 98 4.0 08/21/17 17:45 36.4 65 18 155/89 (111) 97 Nasal Cannula 4.0 08/21/17 17:45 36.4 65 18 155/89 97 4.0 08/21/17 17:15 36.6 60 18 152/90 99 Nasal Cannula 4.0 08/21/17 17:15 36.6 60 18 152/90 (110) 98 Nasal Cannula 4.0 08/21/17 17:15 Nasal Cannula 4.0 08/21/17 17:15 36.6 60 18 152/90 98 4.0 08/21/17 17:01 60 16 158/89 98 08/21/17 16:45 36.4 60 28 158/89 98 4.0 08/21/17 16:30 36.4 63 14 160/93 98 4.0 08/21/17 16:26 36.4 61 16 167/86 98 4.0 08/21/17 15:30 61 20 144/80 98 Room Air 08/21/17 14:11 66 30 163/94 98 Nasal Cannula 4.0 08/21/17 12:45 81 20 139/84 97 Room Air 08/21/17 11:31 94 Nasal Cannula 4.0 08/21/17 11:04 74 08/21/17 10:50 36.4 94 20 118/95 93 Room Air 08/21/17 10:50 93 Room Air Constitutional: vitals are stable. Pleasant obese gentleman Eyes: Eyes are JIMI EOMI without conjuctival erythema or icterus. ENT: External examination was negative for masses. Neck: Negative for masses or palpable thyromegaly Respiratory: Lung sounds were generally clear but decreased bilaterally Cardiovascular: Heart was RRR without significant murmur, gallops aoe rubs Gastrointestinal: No definite palpable hepatic or splenomegaly. The abdomen was soft with normal bowel sounds. Lymphatic system: there was no palpable peripheral lymphadenopathy Musculoskeletal System: The musculoskeletal system seemed concordant with age. Skin: The skin was negative for jaundice. Neurologic exam: The exam was negative for any focal findings. Deep tendon reflexes were equal and symmetrical. Psychiatric exam: Was essentially negative with normal mood and effect. Laboratory Results Last 24 Hours Test 08/21/17 11:31 08/21/17 11:32 08/21/17 17:21 08/21/17 20:23 Prothrombin Time > 100.0 SECONDS Prothromb Time International Ratio > 10.0 Sodium Level 134 mmol/L Potassium Level 4.3 mmol/L Chloride Level 101 mmol/L Carbon Dioxide Level 25 mmol/L Anion Gap 8.0 mmol/L Blood Urea Nitrogen 19 mg/dl Creatinine 0.79 mg/dl Est Creatinine Clear Calc Drug Dose 88.2 ml/min Estimated GFR () 101.8 Estimated GFR (Non- 87.8 BUN/Creatinine Ratio 24.7 Random Glucose 183 mg/dl Calcium Level 9.6 mg/dl Total Bilirubin 0.3 mg/dl Direct Bilirubin < 0.1 mg/dl Aspartate Amino Transf (AST/SGOT) 15 U/L Alanine Aminotransferase (ALT/SGPT) 30 U/L Alkaline Phosphatase 93 U/L Total Creatine Kinase 29 U/L Creatine Kinase MB 1.8 ng/ml Creatine Kinase MB Ratio 6.2 Troponin I 0.021 ng/ml Total Protein 6.7 gm/dl Albumin 2.4 gm/dl Lipase 111 U/L White Blood Count 14.07 K/uL Red Blood Count 4.27 M/uL Hemoglobin 11.5 g/dL Hematocrit 35.1 % Mean Corpuscular Volume 82.2 fL Mean Corpuscular Hemoglobin 26.9 pg Mean Corpuscular Hemoglobin Concent 32.8 g/dl Platelet Count 265 K/uL Mean Platelet Volume 8.9 fL Neutrophils (%) (Auto) 91.8 % Lymphocytes (%) (Auto) 2.6 % Monocytes (%) (Auto) 4.7 % Eosinophils (%) (Auto) 0.1 % Basophils (%) (Auto) 0.1 % Neutrophils # (Auto) 12.93 K/uL Lymphocytes # (Auto) 0.36 K/uL Monocytes # (Auto) 0.66 K/uL Eosinophils # (Auto) 0.01 K/uL Basophils # (Auto) 0.01 K/uL RDW Standard Deviation 45.0 fL RDW Coefficient of Variation 15.2 % Immature Granulocyte % (Auto) 0.7 % Immature Granulocyte # (Auto) 0.10 K/uL Bedside Glucose 85 mg/dl Digoxin Level 1.0 ng/ml Test 08/21/17 22:53 08/22/17 00:00 08/22/17 04:13 08/22/17 07:10 Prothrombin Time 25.9 SECONDS 18.4 SECONDS Prothromb Time International Ratio 2.5 1.8 White Blood Count 12.48 K/uL Red Blood Count 4.03 M/uL Hemoglobin 10.8 g/dL Hematocrit 33.5 % Mean Corpuscular Volume 83.1 fL Mean Corpuscular Hemoglobin 26.8 pg Mean Corpuscular Hemoglobin Concent 32.2 g/dl Platelet Count 224 K/uL Mean Platelet Volume 8.6 fL Neutrophils (%) (Auto) 89.1 % Lymphocytes (%) (Auto) 3.7 % Monocytes (%) (Auto) 6.1 % Eosinophils (%) (Auto) 0.3 % Basophils (%) (Auto) 0.0 % Neutrophils # (Auto) 11.12 K/uL Lymphocytes # (Auto) 0.46 K/uL Monocytes # (Auto) 0.76 K/uL Eosinophils # (Auto) 0.04 K/uL Basophils # (Auto) 0.00 K/uL RDW Standard Deviation 46.3 fL RDW Coefficient of Variation 15.2 % Immature Granulocyte % (Auto) 0.8 % Immature Granulocyte # (Auto) 0.10 K/uL Sodium Level 136 mmol/L Potassium Level 4.6 mmol/L Chloride Level 100 mmol/L Carbon Dioxide Level 32 mmol/L Anion Gap 4.0 mmol/L Blood Urea Nitrogen 18 mg/dl Creatinine 0.68 mg/dl Est Creatinine Clear Calc Drug Dose 102.4 ml/min Estimated GFR () 108.3 Estimated GFR (Non- 93.4 BUN/Creatinine Ratio 26.9 Random Glucose 93 mg/dl Calcium Level 10.2 mg/dl Pleural Fluid pH 7.39 Assessment & Plan Widely metastatic adenocarcinoma most likely lung primary. With his current performance status I really doubt that systemic chemotherapy would be very helpful. The scalp biopsy was sent off for biomarker studies and hopefully these will return with something that is actionable. Those results are not is yet to be available and hopefully we will know of those results in the next few days. He asked during our visit as to whether his condition was terminal. I did state that that was the case. I have asked the nursing staff to be in touch with me should the family arrived. To help with his pain management I would suggest that be consulted.
--- NOTE | 2017-08-22 08:26 | Clinical Documentation Query ---
AMILCAR Brunson : CLINICAL DOCUMENTATION QUERY Patient is a 76 year old female admitted for treatment of an INR > 10 and large left malignant effusion. No clinical diagnosis exists for note of elevated INR. As appropriate, consider documentation as suggested below as this impacts DRG assignment and appears to be the primary reason for admission initially. Thank you. In your clinical opinion is this patient being managed for: (x ) Coumadin coagulopathy ( ) Not Agree ( ) Other explanation of clinical findings (Please Explain) ( ) Unable to determine (Please Define) ( ) Need to Discuss The medical record reflects the following clinical findings, treatment, and risk factors. Clinical Indicators: As above Treatment: FFP, Vitamin K, serial coagulation studies Risk Factors: Coumadin therapy Please clarify and document your clinical opinion in the progress notes and discharge summary. Terms such as "probable", "suspected", "likely", "questionable", "possible", or "still to be ruled out" are acceptable. IF IN AGREEMENT, YOU MUST DOCUMENT ABOVE DIAGNOSTIC STATEMENT IN DAILY PROGRESS NOTES AND DISCHARGE SUMMARY. This document is not part of the patient's record. Thank You, Angelo Carrion, RN [phone]
--- NOTE | 2017-08-22 08:33 | Family Medicine Progress Note ---
Progress Note Date of Service Aug 22, 2017. Subjective Pt evaluation today including: conversation w/ patient, conversation w/ family , physical exam, chart review, lab review, review of studies, conversation w/ beauty sales consultant, review of inpatient medication list Patient poor historian, seems confused. Was using telephone to try to operate television. Initially denied abdominal pain and stated shoulder pain was completely resolved. When family walked-in 5 minutes later, became distressed in pain of the same right shoulder. Denies trouble breathing or chest pain. Management plans were discussed with and [id number]. Their questions were answered as best as possible. Unable to obtain detailed ROS due to intermittent spurts agitation. Objective Vital Signs Date Time Temp Pulse Resp B/P (MAP) Pulse Ox O2 Delivery O2 Flow Rate FiO2 08/22/17 07:55 36.5 66 18 164/88 (113) 97 Room Air 08/22/17 04:00 36.6 67 20 167/82 (110) 98 4.0 08/22/17 01:06 36.8 61 20 175/88 (117) 99 Nasal Cannula 4.0 08/22/17 00:15 Nasal Cannula 4.0 08/21/17 21:28 66 08/21/17 21:05 36.7 64 18 144/81 98 4.0 08/21/17 20:37 36.8 64 18 168/99 97 4.0 08/21/17 20:19 36.6 66 18 150/90 98 4.0 08/21/17 19:50 36.6 64 18 169/95 98 08/21/17 19:28 36.6 61 18 145/81 98 2.0 08/21/17 18:15 36.2 62 18 155/89 98 4.0 08/21/17 17:45 36.4 65 18 155/89 (111) 97 Nasal Cannula 4.0 08/21/17 17:45 36.4 65 18 155/89 97 4.0 08/21/17 17:15 36.6 60 18 152/90 99 Nasal Cannula 4.0 08/21/17 17:15 36.6 60 18 152/90 (110) 98 Nasal Cannula 4.0 08/21/17 17:15 Nasal Cannula 4.0 08/21/17 17:15 36.6 60 18 152/90 98 4.0 08/21/17 17:01 60 16 158/89 98 08/21/17 16:45 36.4 60 28 158/89 98 4.0 08/21/17 16:30 36.4 63 14 160/93 98 4.0 08/21/17 16:26 36.4 61 16 167/86 98 4.0 08/21/17 15:30 61 20 144/80 98 Room Air 08/21/17 14:11 66 30 163/94 98 Nasal Cannula 4.0 08/21/17 12:45 81 20 139/84 97 Room Air 08/21/17 11:31 94 Nasal Cannula 4.0 08/21/17 11:04 74 08/21/17 10:50 36.4 94 20 118/95 93 Room Air 08/21/17 10:50 93 Room Air Physical Exam General Appearance: + mild distress (Emotional) Eyes: normal inspection ENT: hearing grossly normal Neck: supple Respiratory/Chest: no respiratory distress, no accessory muscle use, + decreased breath sounds (Mostly absent breath sounds of left side), + crackles ( Right and left), + rales (Right), + pertinent finding (Nasal cannula in situ) Cardiovascular: regular rate, rhythm, + systolic murmur Abdomen: normal bowel sounds, soft Extremities: normal inspection, no calf tenderness, + swelling ( ) Neurologic/Psychiatric: alert, + depressed affect, + disoriented Skin: normal color, warm/dry, no rash Laboratory Results Results Past 24 Hours Test 08/22/17 00:00 08/22/17 04:13 08/22/17 07:10 Range/Units Pleural Fluid Source LEFT LUNG Pleural Fluid Color RED Pleural Fluid Appearance BLOODY Pleural Fluid WBC 603 /uL Pleural Fluid RBC 815313 /uL Pleural Fluid Polynuclear WBCs % 35.7 % Pleural Fluid Mononuclear WBCs % 64.3 % Pleural Fluid Total Protein 3.9 g/dl Pleural Fluid LDH 321 IU Pleural Fluid Glucose 83 mg/dl Pleural Fluid Amylase 16 U/L White Blood Count 12.48 4.8-10.8 K/uL Red Blood Count 4.03 4.7-6.1 M/uL Hemoglobin 10.8 14.0-18.0 g/dL Hematocrit 33.5 42-52 % Mean Corpuscular Volume 83.1 80-100 fL Mean Corpuscular Hemoglobin 26.8 25-34 pg Mean Corpuscular Hemoglobin Concent 32.2 32-36 g/dl Platelet Count 224 130-400 K/uL Mean Platelet Volume 8.6 7.4-10.4 fL Neutrophils (%) (Auto) 89.1 % Lymphocytes (%) (Auto) 3.7 % Monocytes (%) (Auto) 6.1 % Eosinophils (%) (Auto) 0.3 % Basophils (%) (Auto) 0.0 % Neutrophils # (Auto) 11.12 1.4-6.5 K/uL Lymphocytes # (Auto) 0.46 1.2-3.4 K/uL Monocytes # (Auto) 0.76 0.11-0.59 K/uL Eosinophils # (Auto) 0.04 0-0.5 K/uL Basophils # (Auto) 0.00 0-0.2 K/uL RDW Standard Deviation 46.3 36.4-46.3 fL RDW Coefficient of Variation 15.2 11.5-14.5 % Immature Granulocyte % (Auto) 0.8 % Immature Granulocyte # (Auto) 0.10 0.00-0.02 K/uL Prothrombin Time 18.4 9.0-12.0 SECONDS Prothromb Time International Ratio 1.8 0.9-1.1 Sodium Level 136 136-145 mmol/L Potassium Level 4.6 3.5-5.1 mmol/L Chloride Level 100 98-107 mmol/L Carbon Dioxide Level 32 21-32 mmol/L Anion Gap 4.0 3-11 mmol/L Blood Urea Nitrogen 18 7-18 mg/dl Creatinine 0.68 0.60-1.40 mg/dl Est Creatinine Clear Calc Drug Dose 102.4 ml/min Estimated GFR () 108.3 Estimated GFR (Non- 93.4 BUN/Creatinine Ratio 26.9 10-20 Random Glucose 93 70-99 mg/dl Calcium Level 10.2 8.5-10.1 mg/dl Pleural Fluid pH 7.39 7.3-7.4 Microbiology Results 08/22/17 Fungal Smear - Final, Resulted 08/22/17 Fungal Culture, Resulted Pending 08/22/17 Acid Fast Stain, Received Pending 08/22/17 Mycobacterial Culture, Received Pending 08/22/17 Gram Stain - Final, Resulted 08/22/17 Bacterial Culture, Resulted Pending Assessment and Plan 76 yo M with PMHx of 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 - INR down to 1.8, recheck daily - Hold warfarin (home regimen 5mg all days except on /Sun 7.5mg), in view of potential Pleur-X catheter insertion - Encourage SCD use Acute hypoxemic respiratory failure secondary to large left pleural effusion - Pulmonary and thoracic surgery consulted, recs appreciated, s/p thoracocentesis x2 with 2.7L fluid removal - Oxygen via NC as needed - Zosyn empirically to cover GI and lung sources- leukocytosis 14K with left shift - Drained lung fluid analysis pending, but high suspicion of malignant effusion - Consideration for Pleur-X catheter per cardiothoracic NSCLC with mets to brain, pelvis, hip - Heme/onc consulted: follows with Dr. Zaragoza, s/p 10 sessions of XRT on 08/17/17 - Plan to discuss chemo options once scalp biopsy results return - Pain control with fentanyl 25 mcg patch daily, percocet 5-325 Q4H, IV morphine 2 or 4 mg Q2H for breakthrough pain - Night terrors likely due to brain mets - Palliative consulted RUQ pain - U/S abdo unremarkable CAD s/p CABG x 3 vessels / Chronic sCHF with EF = 20% / HTN / Afib - Echo reports mild LV dilation and borderline LV hypertrophy. Severely reduced LVEF = 15-20%. Severely dilated LA, RA mild to moderately dilated, aortic valve is sclerotic with reduced opening, large left pleural effusion. - Currently rate controlled, continue home meds: digoxin 250mcg daily, carvedilol 3.125mg BID, lasix 20mg daily, losartan 50mg daily, warfari held HLD - Continue simvastatin 40 mg HS DVT ppx - No chemical with supratherapeutic INR and pleurex cath insertion - Teds, SCDs CODE STATUS: FULL - Code status was discussed in detail with pt and , at this time they want full code. They would like to discuss this with Dr. Zaragoza Resident Tracking Resident Involvement: Resident Care Provided Care Provided: Adult [facility]
[2017-08-22 08:42] LABS: PLEURAL FLUID TOTAL PROTEIN 3.9 g/dl
--- NOTE | 2017-08-22 11:48 | OPERATIVE REPORT ---
DATE OF OPERATION: 08/22/2017 PREOPERATIVE DIAGNOSES: 1. Large left pleural effusion with pulmonary insufficiency. 2. 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 POSTOPERATIVE DIAGNOSIS: Same. PROCEDURE: Left thoracentesis under ultrasound guidance. SURGEON: Bryan Almazan MD. PRODUCTION CONTROL COORDINATOR: TOY Marino. ANESTHESIA: Local. SPECIFICS OF PROCEDURE: The patient in the upright position, the left posterior chest was evaluated with an ultrasound and a spot was marked with pretty good window. After prepping and draping in usual sterile fashion, with 25 gauge needle 1% Xylocaine was used to anesthetize the skin and subcutaneous tissues. A large bore needle was used to anesthetize the deeper subcutaneous tissues and pleura. Free flowing bloody fluid was obtained. Guidewire was inserted and needle removed. Introducer sheath was slid over the guidewire and then removed. A triple lumen catheter was slid into 17 cm and 1600 mL of nonbloody nonclotting fluid was drained. He felt better, although he struggled with pain in his back while sitting up. A chest x-ray showed some improvement, but he still has opacification in his left base. We have sent the fluid for evaluation. The pH was 7.44 on the i-STAT. There was no evidence of pneumothorax and after removing the catheter he had no evidence of bleeding. I attest to the content of the Intraoperative Record and any orders documented therein. Any exception s are noted below.
--- NOTE | 2017-08-22 15:33 | PULMONARY PROGRESS NOTE ---
DATE: 08/22/2017 PULMONARY MEDICINE PROGRESS NOTE SUBJECTIVE: The patient felt somewhat improved after drainage of 1600 mL of initially bloody then nonbloody fluid that most likely represents a neoplastic pleural effusion. Post-thoracentesis chest x-ray did show decreased size of moderate left pleural effusion, but there was still evidence of cardiomegaly, pulmonary vascular congestion, and I suspect an element of fluid overload remains. The patient's O2 sat is 92% on 4 liters and is down to 0.7 kilograms since admission. The patient is currently on IV Zosyn and would recommend increasing his Lasix dosing either to 40 mg p.o. daily or given intravenous Lasix 20 mg IV b.i.d. to see if we can affect a better diuresis with careful attention to the patient's renal status. MTDD
[2017-08-22] MEDS: DIGOXIN 0.25 MG TAB PO SCH (20:29)
[2017-08-22] MEDS: SIMVASTATIN 40 MG TAB PO SCH (20:30)
[2017-08-23 04:15] VITALS: BP 156/82; PULSE 70; TEMP 36.5; O2SAT 96
[2017-08-23] MEDS: LOSARTAN POTASSIUM 50 MG TAB PO SCH (07:21)
[2017-08-23] MEDS: ASPIRIN 325 MG ECTAB PO SCH (07:21)
[2017-08-23] MEDS: CARVEDILOL 3.125 MG TAB PO SCH ×2 (07:21→19:47)
[2017-08-23] MEDS: PIPERACILL/TAZOBAC IV 3.375 GM in DEXTROSE 5% 100ML 100 ML IV SCH ×2 (07:21→17:08)
[2017-08-23] MEDS: SPIRONOLACTONE 25 MG TAB PO SCH (07:21)
[2017-08-23] MEDS: FUROSEMIDE 20 MG TAB PO SCH (07:22)
[2017-08-23] MEDS: OXYCODONE/ACETAMINOPHEN 7.5-325 TAB PO PRN (07:23)
--- NOTE | 2017-08-23 07:28 | Family Medicine Progress Note ---
Progress Note Date of Service Aug 23, 2017. Subjective Pt evaluation today including: conversation w/ patient, physical exam, chart review, lab review, review of studies, conversation w/ solar energy consultant and designer, review of inpatient medication list Patient more alert and focused today, States he is not having any dyspnea or chest, and says his abdominal pain and right shoulder pain are currently resolved. He otherwise denies fevers/chills, headaches, CP, palpitations, lower extremity swelling or rashes. He is tolerating diet without nausea or vomiting, he has not been ambulating, and he denies issues with voiding and stooling. ROS is unremarkable except as noted above. Objective Vital Signs Date Time Temp Pulse Resp B/P (MAP) Pulse Ox O2 Delivery O2 Flow Rate FiO2 08/23/17 23:01 36.6 82 18 127/81 (96) 94 Room Air 08/23/17 20:00 36.4 80 18 131/73 (92) 92 Room Air 08/23/17 20:00 Room Air 08/23/17 19:48 80 08/23/17 19:45 36.8 80 18 143/83 (103) 91 Room Air 08/23/17 17:00 Room Air 08/23/17 12:20 36.8 70 18 138/84 (102) 94 Room Air 08/23/17 08:00 Room Air 08/23/17 07:33 36.4 76 20 158/80 (106) 92 Room Air 08/23/17 04:15 36.5 70 20 156/82 (106) 96 Nasal Cannula 2.0 Physical Exam General Appearance: WD/WN, no apparent distress, + pertinent finding Eyes: normal inspection ENT: hearing grossly normal Respiratory/Chest: no respiratory distress, no accessory muscle use, + decreased breath sounds (in L), + crackles (in left, some apprecated on right) Cardiovascular: regular rate, rhythm, no murmur Abdomen: normal bowel sounds, non tender, soft Extremities: normal inspection, no pedal edema Neurologic/Psychiatric: alert, normal mood/affect Skin: normal color, warm/dry, no rash Laboratory Results Results Past 24 Hours Test 08/23/17 08:12 Range/Units White Blood Count 12.99 4.8-10.8 K/uL Red Blood Count 4.54 4.7-6.1 M/uL Hemoglobin 12.1 14.0-18.0 g/dL Hematocrit 37.0 42-52 % Mean Corpuscular Volume 81.5 80-100 fL Mean Corpuscular Hemoglobin 26.7 25-34 pg Mean Corpuscular Hemoglobin Concent 32.7 32-36 g/dl Platelet Count 250 130-400 K/uL Mean Platelet Volume 8.7 7.4-10.4 fL Neutrophils (%) (Auto) 89.1 % Lymphocytes (%) (Auto) 4.3 % Monocytes (%) (Auto) 5.9 % Eosinophils (%) (Auto) 0.1 % Basophils (%) (Auto) 0.0 % Neutrophils # (Auto) 11.58 1.4-6.5 K/uL Lymphocytes # (Auto) 0.56 1.2-3.4 K/uL Monocytes # (Auto) 0.76 0.11-0.59 K/uL Eosinophils # (Auto) 0.01 0-0.5 K/uL Basophils # (Auto) 0.00 0-0.2 K/uL RDW Standard Deviation 44.1 36.4-46.3 fL RDW Coefficient of Variation 15.0 11.5-14.5 % Immature Granulocyte % (Auto) 0.6 % Immature Granulocyte # (Auto) 0.08 0.00-0.02 K/uL Prothrombin Time 12.1 9.0-12.0 SECONDS Prothromb Time International Ratio 1.2 0.9-1.1 Sodium Level 135 136-145 mmol/L Potassium Level 4.0 3.5-5.1 mmol/L Chloride Level 98 98-107 mmol/L Carbon Dioxide Level 26 21-32 mmol/L Anion Gap 11.0 3-11 mmol/L Blood Urea Nitrogen 22 7-18 mg/dl Creatinine 0.69 0.60-1.40 mg/dl Est Creatinine Clear Calc Drug Dose 98.5 ml/min Estimated GFR () 107.6 Estimated GFR (Non- 92.9 BUN/Creatinine Ratio 31.6 10-20 Random Glucose 160 70-99 mg/dl Calcium Level 10.4 8.5-10.1 mg/dl Magnesium Level 2.2 1.8-2.4 mg/dl Assessment and Plan 76 yo M with PMHx of 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 - INR down to 1.2, recheck daily - Hold warfarin (home regimen 5mg all days except on /Sun 7.5mg), in view of potential Pleur-X catheter insertion - Encourage SCD use Acute hypoxemic respiratory failure secondary to large left pleural effusion - Pulmonary and thoracic surgery consulted, recs appreciated, s/p thoracocentesis x2 with 2.7L fluid removal - Oxygen via NC as needed - Zosyn empirically to cover GI and lung sources- leukocytosis 14K with left shift - Drained lung fluid analysis pending - cytology shows reactive mesothelial cells rather than malignant cells. Cultures pending - CXR tomorrow with consideration for Pleur-X catheter per cardiothoracic if rapid reaccumulation NSCLC with mets to brain, pelvis, hip - Heme/onc consulted: follows with Dr. Zaragoza, s/p 10 sessions of XRT on 08/17/17. Palliative and radiation therapy consulted, recs appreciated - Plan to discuss chemo options once scalp biopsy results return - Pain control as per palliative: Increase fentanyl to 50 mcg patch daily, discontinue Perrcocet 5-325 Q4H and IV morphine 4 mg Q2H. Ordered Roxanol 5- 10mg for breakthrough pain and PO ativan 1mg q4h PRN for agitation - Night terrors likely due to brain mets - Plans for home with hospice care RUQ pain - U/S abdo unremarkable. Pain possible secondary to mets +/- manifestation of anxiety CAD s/p CABG x 3 vessels / Chronic sCHF with EF = 20% / HTN / Afib - Echo reports mild LV dilation and borderline LV hypertrophy. Severely reduced LVEF = 15-20%. Severely dilated LA, RA mild to moderately dilated, aortic valve is sclerotic with reduced opening, large left pleural effusion. - Currently rate controlled, continue home meds: digoxin 250mcg daily, carvedilol 3.125mg BID, lasix 20mg daily, losartan 50mg daily, warfarin held HLD - Continue simvastatin 40 mg HS DVT ppx - No chemical with supratherapeutic INR and possible PleurX cath insertion - Teds, SCDs CODE STATUS: FULL - Code status currently, palliative plans to discuss goals of care and complete POLST form tomorrow Discharge planning: home with Hospice Resident Tracking Resident Involvement: Resident Care Provided Care Provided: Adult Hospital Medicine Reviewed: Pt Seen/Exam by Me History Resident Physician Supervision Note: I interviewed and examined the patient. Discussed with Dr. Feliciano and agree with findings and plan as documented in the note. Any exceptions or clarifications are listed here: Patient is a 76-year-old male with a history of recently diagnosed metastatic non-small cell lung carcinoma who presented with progressive shortness of breath , weakness, and home nurse found his INR to be greater than 10. He is not currently having any symptoms of bleeding. His hemoglobin is fairly close to normal, but he was found to have a very large left sided pleural effusion and acute hypoxemic respiratory failure on admission. He is also having some postprandial epigastric pain, as well as constant posterior right shoulder pain in addition to his migrating bony pain in other places thought to be secondary to his metastases. He was given vitamin K 5 mg IV 1 in the ER, followed by 2 units FFP. He underwent thoracentesis which is exudative, cytology with some atypical cells- reactive mesothelial cells versus malignant cells Today, he was started on liquid Roxanol for pain and increased his fentanyl patch to 50 as per palliative care medicine. He and his have decided to go home with hospice, however they are still interested in possible palliative radiation therapy to the brain masses if it will help his symptoms. Patient reports right now after receiving Roxanol, he is having no pain at all and is resting. Vitals reviewed NAD Regular rate and rhythm, 2/6 systolic ejection murmur at the right upper sternal border Lungs with diminished breath sounds in the left lower and mid lung manley, otherwise with a few crackles at the right base Abdomen positive bowel sounds soft nontender nondistended Extremities 1+ pitting edema bilaterally in the legs This is a 76 yo F with PMHx of NSCLC with mets to brain, bones, CAD s/p CABG x 3 vessels, with SVG to LAD, biventricular ICD placement in 2012, Afib, HTN, HLD , chronic systolic CHF with EF = 20%, and aortic stenosis who presents after home health nursing checked INR and was > 10, along with progressive shortness of breath and weakness. Acute hypoxemic respiratory failure/large left-sided pleural effusion-now status post thoracentesis-most likely a malignant effusion, however cytology not definitive, but could have some element of acute on chronic systolic CHF. This could also be a hemothorax given his significantly elevated INR-await final pleural fluid studies but does not appear to be infectious -he is a possible candidate for Pleurx catheter placement in the future-he should follow with thoracic surgery as an outpatient in one week with chest x- ray-on the Fluid Pl., Pleurx at this time as per my discussion with thoracic surgery -Would not recommend restarting Coumadin as he is going home on hospice -Continue home diuretics for comfort -Starting Ativan for anxiety and night terrors -Overall very poor prognosis given his metastatic disease, severe CHF, consult palliative care appreciated-plans for home with hospice over the weekend -Continue supportive care with supplemental oxygen, pain control Documented By: Eri Rosales Documented By: Eri Rosales <Electronically signed by Eri Rosales MD> 08/23/17918 Addendum: 08/23/17 0945 Addendum: Eri Rosales MD on 08/23/17 @ 09:45 Addendum Section A/P addendum: Coumadin coagulopathy-INR greater than 10 on admission, on Coumadin at home for paroxysmal atrial fibrillation-treated with vitamin K, 2 units FFP
[2017-08-23 07:33] VITALS: BP 158/80; PULSE 76; TEMP 36.4; O2SAT 92
[2017-08-23] MEDS: CHECK FENTANYL PATCH PLACEMENT SCH ×3 (08:01→23:13)
[2017-08-23 08:30] LABS: EOS % 0.1 %; EOS ABS # 0.01 K/uL (0-0.5); HEMOGLOBIN 12.1 g/dL (14.0-18.0); IG# 0.08 K/uL (0.00-0.02); LYMPH % 4.3 %; LYMPH ABS # 0.56 K/uL (1.2-3.4); MEAN CELL VOLUME 81.5 fL (80-100); MEAN CORPUSCULAR HEMOGLOBIN 26.7 pg (25-34); MEAN CORPUSCULAR HGB CONC 32.7 g/dl (32-36); MEAN PLATELET VOLUME 8.7 fL (7.4-10.4); MONO % 5.9 %; MONO ABS # 0.76 K/uL (0.11-0.59); NEUT % 89.1 %; NEUT ABS # 11.58 K/uL (1.4-6.5); PLATELET COUNT 250 K/uL (130-400); RED CELL DISTRIBUTION WIDTH SD 44.1 fL (36.4-46.3); WHITE BLOOD COUNT 12.99 K/uL (4.8-10.8)
[2017-08-23 08:42] LABS: INR 1.2 (0.9-1.1)
[2017-08-23 09:05] LABS: CALCIUM 10.4 mg/dl (8.5-10.1); CREATININE 0.69 mg/dl (0.60-1.40)
--- NOTE | 2017-08-23 09:56 | DIAGNOSTIC IMAGING REPORT ---
CHEST ONE VIEW PORTABLE HISTORY: 76 years-old Male effusion follow-up study in a patient with left pleural effusion COMPARISON: Chest radiograph 08/22/2017 TECHNIQUE: Portable AP view of the chest FINDINGS: Cardiac silhouette is again moderately enlarged. Unchanged left subclavian pacer/ICD. Prior median sternotomy. Left atrial exclusion device noted. Atherosclerosis of the aorta. No pneumothorax. The right lung appears generally clear. Moderate left-sided pleural effusion is again seen which has not significantly changed. There is slightly increased hazy opacity throughout the left lung. Mild pulmonary vascular congestion. Bones of the chest appear grossly intact. IMPRESSION: 1. Stable size of moderate left pleural effusion with increasing opacities throughout the aerated left lung suggesting atelectasis. 2. Cardiomegaly. The above report was generated using voice recognition software. It may contain grammatical, syntax or spelling errors. Electronically signed by: Surjit Moran M.D. 08/23/2017 9:55 AM Dictated Date/Time: 08/23/2017 9:53 AM
--- NOTE | 2017-08-23 10:19 | SURGERY PROGRESS NOTE ---
DATE: 08/23/2017 Mr. Craft was seen today. He looks better than he did yesterday. He is still having a tremendous amount of back pain from probable bony metastases. His breathing is much better and he is now on room air. The fluid is an exudate. The cytology is not back, but my suspicion was we were dealing with a malignant pleural effusion. I discussed with pathology and no malignant cells noted. His x-ray today actually does not look bad compared to yesterday. It may be some time before he has a reaccumulationof this fluid. If that occurs, we will put a PleurX catheter in for comfort. ROMEO
[2017-08-23] MEDS: MoRPHine SULFATE 4 MG/ML 1 ML CARP\\VIAL IV PRN ×2 (10:26→12:26)
[2017-08-23 12:20] VITALS: BP 138/84; PULSE 70; TEMP 36.8; O2SAT 94
--- NOTE | 2017-08-23 14:16 | Hematology/Oncology Prog Note ---
Hematology/Onc Progress Note Date of Service Aug 23, 2017. Diagnoses Metastatic non-small cell lung carcinoma Medications Medications Administered Medications (Trade) Dose Ordered Sig/Taryn Route Start Time Stop Time Status Last Admin Dose Admin Hydromorphone HCl (Dilaudid Inj) 1 mg NOW STAT IV 08/21/17 10:51 08/21/17 10:54 DC 08/21/17 11:25 1 MG Ondansetron HCl (Zofran Inj) 4 mg NOW STAT IV 08/21/17 10:51 08/21/17 10:55 DC 08/21/17 11:25 4 MG Phytonadione (Mephyton Tab) 5 mg NOW STAT PO 08/21/17 12:24 08/21/17 12:25 DC 08/21/17 12:44 5 MG Aspirin (Ecotrin Tab) 325 mg QAM PO 08/22/17 08:00 09/21/17 08:59 08/23/17 07:21 325 MG Carvedilol (Coreg Tab) 3.125 mg BID PO 08/21/17 20:00 09/20/17 20:59 08/23/17 07:21 3.125 MG Digoxin (Lanoxin Tab) 0.25 mg HS PO 08/21/17 21:00 09/20/17 20:59 08/22/17 20:29 0.25 MG Fentanyl (Duragesic Patch) 25 mcg Q72H TD 08/21/17 21:00 08/23/17 13:29 DC 08/21/17 20:44 25 MCG Furosemide (Lasix Tab) 20 mg QAM PO 08/22/17 08:00 09/21/17 08:59 08/23/17 07:22 20 MG Losartan Potassium (coZAAR TAB) 50 mg QAM PO 08/22/17 08:00 09/21/17 08:59 08/23/17 07:21 50 MG Oxycodone/ Acetaminophen (Percocet 7.5-325MG Tab) 1 tab Q4 PRN PO 08/21/17 14:00 08/23/17 13:28 DC 08/23/17 07:23 1 TAB Simvastatin (Zocor Tab) 40 mg QPM PO 08/21/17 21:00 09/20/17 20:59 08/22/17 20:30 40 MG Spironolactone (Aldactone Tab) 25 mg QAM PO 08/22/17 08:00 09/21/17 08:59 08/23/17 07:21 25 MG Morphine Sulfate (MoRPHine SULFATE INJ) 4 mg Q2H PRN IV 08/21/17 14:00 08/23/17 13:28 DC 08/23/17 12:26 4 MG Hydromorphone HCl (Dilaudid Inj) 1 mg NOW STAT IV 08/21/17 14:14 08/21/17 14:15 DC 08/21/17 14:20 1 MG Piperacillin Sod/ Tazobactam Sod 3.375 gm/Dextrose 115 ml @ 28.75 mls/ hr Q8H IV 08/22/17 00:00 08/28/17 17:59 08/23/17 07:21 28.75 MLS/HR Piperacillin Sod/ Tazobactam Sod 3.375 gm/Dextrose 115 ml @ 230 mls/hr 1800 ONCE IV 08/21/17 18:00 08/21/17 18:29 DC 08/21/17 21:27 230 MLS/HR Miscellaneous (Fentanyl Patch Remove & Waste) 1 ea Q72H N/A 08/21/17 20:59 09/20/17 20:58 08/21/17 20:41 1 EA Miscellaneous Information (Check Fentanyl Patch Placement) 1 ea QS N/A 08/22/17 00:00 09/21/17 00:00 08/23/17 08:01 1 EA Phytonadione 5 mg/ Sodium Chloride 50.5 ml @ 101 mls/hr ONE ONCE IV 08/22/17 01:30 08/22/17 01:59 DC 08/22/17 02:00 101 MLS/HR Subjective Is resting comfortably. He denies shortness of breath although he is having a considerable amount of pain. When asked where his pain is he states that it is "everywhere" Review of Systems: Constitutional: Negative for night sweats, or fever Eyes: Negative for event change of vision ENT: Negative for epistaxis, nasal discharge, sore throat, or deafness Cardiovascular: Negative for chest pain, palpitations, dizziness, diaphoresis Respiratory: Negative for new shortness of breath,hemoptysis, or purulent cough Gastrointestinal: Negative for diarrhea, hematemesis, melena, nausea, vomiting , or dyspepsia Integumentary (skin): Negative for rash or jaundice discoloration Neurological: Negative for weakness, seizure activity, headache, or dizziness Lymphatic/Hematologic: Negative for petechiae, bleeding or new adenopathy Musculoskeletal: Negative for new joint or back pain Allergic/Immunologic: Negative for unusual rash or pruritis. Vital Signs Vital Signs Past 12 Hours Date Time Temp Pulse Resp B/P (MAP) Pulse Ox O2 Delivery O2 Flow Rate FiO2 08/23/17 12:20 36.8 70 18 138/84 (102) 94 Room Air 08/23/17 08:00 Room Air 08/23/17 07:33 36.4 76 20 158/80 (106) 92 Room Air 08/23/17 04:15 36.5 70 20 156/82 (106) 96 Nasal Cannula 2.0 Physical Exam Constitutional: vitals are stable. Eyes: Eyes are JIMI EOMI without conjuctival erythema or icterus. ENT: External examination was negative for masses. Neck: Negative for masses or palpable thyromegaly Respiratory: Lung sounds were generally clear bilaterally Cardiovascular: Heart was RRR without significant murmur, gallops aoe rubs Gastrointestinal: No palpable hepatic or splenomegaly. The abdomen was soft with normal bowel sounds. Lymphatic system: there was no palpable peripheral lymphadenopathy Musculoskeletal System: The musculoskeletal system seemed concordant with age. Skin: The skin was negative for jaundice. Neurologic exam: The exam was negative for any focal findings. Deep tendon reflexes were equal and symmetrical. Psychiatric exam: Was essentially negative with normal mood and effect. Laboratory Last 24 Hours Test 08/23/17 08:12 White Blood Count 12.99 K/uL Red Blood Count 4.54 M/uL Hemoglobin 12.1 g/dL Hematocrit 37.0 % Mean Corpuscular Volume 81.5 fL Mean Corpuscular Hemoglobin 26.7 pg Mean Corpuscular Hemoglobin Concent 32.7 g/dl Platelet Count 250 K/uL Mean Platelet Volume 8.7 fL Neutrophils (%) (Auto) 89.1 % Lymphocytes (%) (Auto) 4.3 % Monocytes (%) (Auto) 5.9 % Eosinophils (%) (Auto) 0.1 % Basophils (%) (Auto) 0.0 % Neutrophils # (Auto) 11.58 K/uL Lymphocytes # (Auto) 0.56 K/uL Monocytes # (Auto) 0.76 K/uL Eosinophils # (Auto) 0.01 K/uL Basophils # (Auto) 0.00 K/uL RDW Standard Deviation 44.1 fL RDW Coefficient of Variation 15.0 % Immature Granulocyte % (Auto) 0.6 % Immature Granulocyte # (Auto) 0.08 K/uL Prothrombin Time 12.1 SECONDS Prothromb Time International Ratio 1.2 Sodium Level 135 mmol/L Potassium Level 4.0 mmol/L Chloride Level 98 mmol/L Carbon Dioxide Level 26 mmol/L Anion Gap 11.0 mmol/L Blood Urea Nitrogen 22 mg/dl Creatinine 0.69 mg/dl Est Creatinine Clear Calc Drug Dose 98.5 ml/min Estimated GFR () 107.6 Estimated GFR (Non- 92.9 BUN/Creatinine Ratio 31.6 Random Glucose 160 mg/dl Calcium Level 10.4 mg/dl Magnesium Level 2.2 mg/dl Assessment & Plan Metastatic non-small cell lung carcinoma. We are waiting for any biomarker studies and might become available from the recent scalp biopsy. As yet they are not available. I spoke with radiation therapy today and they are planning to radiate the suspected metastatic deposit to the brain. I have been asked by radiation therapy to order a CT of the brain with thin slices and I will ask for that. Ms. Sen has seen the patient and is helping with pain management. I will ask Dr. Urbina to also see Mr. Craft to help with the pain issues.
--- NOTE | 2017-08-23 14:28 | Palliative Care Consultation ---
Consultation Date of Consultation: Aug 23, 2017. Requesting Physician: Dr. Moreno Attending Physician: Dr. Feliciano, Dr. Rosales Reason for Consultation: Goals of care History of Present Illness This 76 year old male patient with PMH metastatic carcinoma of the lung and others listed below, presented to the hospital two days ago with increased SOB and TURNER due to a growing left pleural effusion. Mr. Craft recently finished XRT to the right hip and ribs. He also has a scalp lesion that is shown to be malignant as well. That sample has been sent off for biomarkers- results pending. Patient underwent thoracentesis yesterday which drained 1600ml fluid that has been sent off to pathology- suspected to be malignant. Patient reports relief and ease of breathing. Patient is being seen by heme/onc who relayed to the family that there is no role for systemic therapy at this time due to patient's poor performance status as well as the fact that his imaging shows progressive/worsening disease. There could be role for palliative radiation to the brain and it is still unknown whether or not the scalp lesion is actionable. Palliative care is consulted for the pain and to establish goals of care. I met with the patient, his Lisa and son Gal in room 419. Dr. Preston was present as well. Patient is alert and oriented x4, but does have periods of confusion, anxiety and tearfulness. He was still able to participate in some meaningful conversation about his wishes. Patient and family state that they want to focus on comfort and quality of life. they do not know if they would undergo radiation at this point even if offered. Patient has been declining not only physically but also mentally. He was having confusion at home which seems to be much worse while in hospital. His states it takes a major toll on him to get to and from appointments, so at this point they don't think they'd like any further treatment. After long discussion, patient and family agree that they'd like to take patient home on hospice. See plan below. Past Medical/Surgical History Medical History: Anemia Aortic stenosis Afib ICD Cardiomyopathy, EF 20% CAD s/p CABG x3 vessels htn HLD NSCLC with mets to brain, right hip, ribs Social History Smoking Status: Former Smoker History of Alcohol Use: Yes (occasionally ) Drug Use: none Marital Status: Housing Status: lives with family Occupation Status: retired Review of Systems Constitutional: + weakness ENT: No trouble swallowing Respiratory: No shortness of breath, No dyspnea on exertion Cardiac: No chest pain, No edema Abdomen: No pain, No nausea, No vomiting Musculoskeletal: + problem reported (right rib pain, right arm pain. pain migrates to different parts of body) Male : No problem reported Psychiatric: No depression symptoms, No anxiety Allergies Coded Allergies: No Known Allergies (Unverified , 08/21/17) Medications Current Inpatient Medications Medications (Trade) Dose Ordered Sig/Taryn Route Start Time Stop Time Status Last Admin Dose Admin Acetaminophen (Tylenol Tab) 650 mg Q4H PRN PO 08/21/17 14:00 09/20/17 13:59 Polyethylene (Miralax Powder Packet) 17 gm DAILY PRN PO 08/21/17 14:00 09/20/17 13:59 Ondansetron HCl (Zofran Inj) 4 mg Q6H PRN IV 08/21/17 14:00 09/20/17 13:59 Aspirin (Ecotrin Tab) 325 mg QAM PO 08/22/17 08:00 09/21/17 08:59 08/23/17 07:21 325 MG Carvedilol (Coreg Tab) 3.125 mg BID PO 08/21/17 20:00 09/20/17 20:59 08/23/17 07:21 3.125 MG Digoxin (Lanoxin Tab) 0.25 mg HS PO 08/21/17 21:00 09/20/17 20:59 08/22/17 20:29 0.25 MG Fentanyl (Duragesic Patch) 25 mcg Q72H TD 08/21/17 21:00 09/04/17 20:59 08/21/17 20:44 25 MCG Furosemide (Lasix Tab) 20 mg QAM PO 08/22/17 08:00 09/21/17 08:59 08/23/17 07:22 20 MG Losartan Potassium (coZAAR TAB) 50 mg QAM PO 08/22/17 08:00 09/21/17 08:59 08/23/17 07:21 50 MG Oxycodone/ Acetaminophen (Percocet 7.5-325MG Tab) 1 tab Q4 PRN PO 08/21/17 14:00 09/04/17 13:59 08/23/17 07:23 1 TAB Simvastatin (Zocor Tab) 40 mg QPM PO 08/21/17 21:00 09/20/17 20:59 08/22/17 20:30 40 MG Spironolactone (Aldactone Tab) 25 mg QAM PO 08/22/17 08:00 09/21/17 08:59 08/23/17 07:21 25 MG Morphine Sulfate (MoRPHine SULFATE INJ) 4 mg Q2H PRN IV 08/21/17 14:00 09/04/17 13:59 08/23/17 12:26 4 MG Morphine Sulfate (MoRPHine SULFATE INJ) 2 mg Q2H PRN IV 08/21/17 14:00 09/04/17 13:59 Miscellaneous Information (Consult) 1 ea UD PRN N/A 08/21/17 14:45 09/20/17 14:44 Piperacillin Sod/ Tazobactam Sod 3.375 gm/Dextrose 115 ml @ 28.75 mls/ hr Q8H IV 08/22/17 00:00 08/28/17 17:59 08/23/17 07:21 28.75 MLS/HR Miscellaneous (Fentanyl Patch Remove & Waste) 1 ea Q72H N/A 08/21/17 20:59 09/20/17 20:58 08/21/17 20:41 1 EA Miscellaneous Information (Check Fentanyl Patch Placement) 1 ea QS N/A 08/22/17 00:00 09/21/17 00:00 08/23/17 08:01 1 EA Physical Exam Date Time Temp Pulse Resp B/P (MAP) Pulse Ox O2 Delivery O2 Flow Rate FiO2 08/23/17 12:20 36.8 70 18 138/84 (102) 94 Room Air 08/23/17 08:00 Room Air 08/23/17 07:33 36.4 76 20 158/80 (106) 92 Room Air 08/23/17 04:15 36.5 70 20 156/82 (106) 96 Nasal Cannula 2.0 08/23/17 00:05 Nasal Cannula 3.0 08/22/17 23:42 36.3 62 20 148/83 (104) 96 Nasal Cannula 2.0 08/22/17 20:29 70 08/22/17 20:04 36.3 62 18 151/78 (102) 96 Nasal Cannula 4.0 08/22/17 16:00 97 Nasal Cannula 4.0 08/22/17 15:27 36.6 77 20 143/73 (96) 96 Nasal Cannula 3.5 General Appearance: no apparent distress ENT: hearing grossly normal Neck: supple, no JVD Respiratory: no respiratory distress, no accessory muscle use, + pertinent finding (room air) Cardiovascular: regular rate, rhythm, no edema, + normal peripheral pulses Abdomen: normal bowel sounds, non tender, soft Neurologic/Psychiatric: alert, normal mood/affect, oriented x 3 (but also has periods of confusion/tearfulness/anxiety) Laboratory Results Last 24 Hours Test 08/23/17 08:12 White Blood Count 12.99 K/uL Red Blood Count 4.54 M/uL Hemoglobin 12.1 g/dL Hematocrit 37.0 % Mean Corpuscular Volume 81.5 fL Mean Corpuscular Hemoglobin 26.7 pg Mean Corpuscular Hemoglobin Concent 32.7 g/dl Platelet Count 250 K/uL Mean Platelet Volume 8.7 fL Neutrophils (%) (Auto) 89.1 % Lymphocytes (%) (Auto) 4.3 % Monocytes (%) (Auto) 5.9 % Eosinophils (%) (Auto) 0.1 % Basophils (%) (Auto) 0.0 % Neutrophils # (Auto) 11.58 K/uL Lymphocytes # (Auto) 0.56 K/uL Monocytes # (Auto) 0.76 K/uL Eosinophils # (Auto) 0.01 K/uL Basophils # (Auto) 0.00 K/uL RDW Standard Deviation 44.1 fL RDW Coefficient of Variation 15.0 % Immature Granulocyte % (Auto) 0.6 % Immature Granulocyte # (Auto) 0.08 K/uL Prothrombin Time 12.1 SECONDS Prothromb Time International Ratio 1.2 Sodium Level 135 mmol/L Potassium Level 4.0 mmol/L Chloride Level 98 mmol/L Carbon Dioxide Level 26 mmol/L Anion Gap 11.0 mmol/L Blood Urea Nitrogen 22 mg/dl Creatinine 0.69 mg/dl Est Creatinine Clear Calc Drug Dose 98.5 ml/min Estimated GFR () 107.6 Estimated GFR (Non- 92.9 BUN/Creatinine Ratio 31.6 Random Glucose 160 mg/dl Calcium Level 10.4 mg/dl Magnesium Level 2.2 mg/dl Assessment & Plan Problem list: Confusion- brain mets vs. narcotic use vs. hospitalization Pain, widespread SOB/TURNER- improved after thoracentesis Pleural effusion, left- 1600ml taken during thoracentesis on 08/22/17 Widely metastatic carcinoma- likely primary lung. Brain mets, bony mets. CHF with EF 20% Goals of care Palliative care recs: discussed with patient, patient's Lisa, son Gal, and Dr. Feliciano. -Patient and his family verbalized that they understand patient is terminal. They want to focus on comfort and quality of life. They really do not think they 'd like to pursue any further treatment for the cancer. They also acknowledged the fact that patient is not a candidate for chemotherapy at this time anyway. -After lengthy discussion, patient states that he wants to go home. He does have some anxiety related to this as he doesn't want to be a burden on his . -Patient's states she will be able to take him home with hospice care. She has three sons who will help. One of the patient's sons, Bandar, is coming to stay with patient and to help with care. -Patient has had 16mg IV morphine in last 24 hours. This would convert to about a 25mcg increase in fentanyl patch. Would increase fentanyl patch to 50mcg/hr TD Q72h. -Discontinue Percocet and IV morphine. -Start Roxanol 5mg PO/SL Q2h PRN for SOB or pain scale 1-5. 10mg Q2h PRN SOB or pain 6-10. -Would order lorazepam 1mg PO/SL Q4h PRN anxiety/agitation. -Patient has increased confusion from his baseline (is slightly confused at times even at home). The last brain scan I can see is a CT scan from June which showed no vasogenic edema in the brain. Wondering if this could have changed by now. If this is in the differential, could consider daily Decadron to help with brain edema and bone pain. -Spoke with case management about plans for hospice. Patient already had referral to [facility] for home health. The referral will now be made for hospice. They will need some equipment in the home. -Sons will be available on Sunday to be there with the patient and his to help with transitioning home. -At this time, patient remains a full code. I will address this with he and his tomorrow and hopefully do POLST form. Patient was tearful and overwhelmed, asked that the conversation be held at a later time. Thank you kindly for this consult. I will follow as needed.
[2017-08-23] MEDS ORDERED: OPTIRAY 320 IV PRN (14:45)
[2017-08-23] MEDS: MoRPHine SULFATE 5 MG/0.25 ML UDP PO PRN ×4 (14:53→23:26)
--- NOTE | 2017-08-23 15:16 | PULMONARY PROGRESS NOTE ---
DATE: 08/23/2017 SUBJECTIVE: The patient seems more alert today, oriented and able to converse with only minimal symptoms of dyspnea. He denies pleuritic pain. He has been diuresing and has lost 4.7 kilograms of water weight since admission. He is currently on oral Lasix and spironolactone. 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 The patient's EF is only 15%-20% with global hypokinesis of the left ventricle and certainly, I would watch for any signs of CHF or fluid overload and increase the patient's diuresis if necessary. I have no doubt that the patient will require at some point in time a PleurX catheter. The patient's relatives asked me about the discussion they have with Sondra Sen from palliative care today. They would like to try to avoid a readmission for the PleurX catheter and would consider having it placed during this admission to avoid frequent transfer of care from either home or other facilities. ROMEO
[2017-08-23] MEDS ORDERED: NURSING VERBAL MED ORDER ONE (16:00)
--- NOTE | 2017-08-23 16:22 | DIAGNOSTIC IMAGING REPORT ---
CT SCAN OF THE BRAIN COMBO CLINICAL HISTORY: Intracranial metastatic disease. COMPARISON STUDY: CT of the brain dated 06/27/2017. TECHNIQUE: Axial CT scan of the brain is performed from the vertex to the skull base before and following the IV administration of 94 cc of Optiray 320. IV contrast was administered without application. A dose lowering technique was utilized adhering to the principles of ALARA. CT DOSE: 1425.10 mGy.cm FINDINGS: Brain parenchyma: There are age-related involutional changes noting mild to moderate subcortical and periventricular microangiopathic change. Again seen is a large heterogeneous mass lesion in the left frontal lobe. This measures approximately 5.7 cm and there is surrounding edema. This appears to contain internal calcifications as well as faint postcontrast enhancement. This effaces the overlying cortical sulci. A 2.5 cm right cerebellar mass lesion is again seen. Again, cannot determine of this is intra or extra-axial. There is mild surrounding edema. There is no hemorrhage, midline shift, or evidence of acute territorial ischemia by CT criteria. No extra-axial fluid collection is seen. Ventricles, sulci, cisterns: Prominent secondary to involutional change. See above. Intracranial vasculature: There is atherosclerotic calcification of the cavernous carotid and vertebral arteries. Calvarium: No lytic or blastic lesion is seen. Sinuses and mastoids: The visualized paranasal sinuses are clear. The mastoid air cells are well pneumatized. Orbits: The bony orbits are grossly intact. A retinal calcification is noted on the right. IMPRESSION: 1. There is unchanged appearance of left frontal and right cerebellar mass lesions as compared to 06/27/2017. These cause localized mass effect and are pathologically indeterminant. These could be intra or extra-axial in location. 2. No new or enlarging lesion is suggested. 3. There is no hemorrhage or evidence of acute territorial ischemia by CT criteria. Electronically signed by: Janak Li M.D. 08/23/2017 4:20 PM Dictated Date/Time: 08/23/2017 4:13 PM
[2017-08-23] MEDS: FENTANYL PATCH REMOVE & WASTE SCH (17:09)
[2017-08-23] MEDS: FENTANYL 50 MCG/HR TDSY TD SCH (17:09)
[2017-08-23 19:45] VITALS: BP 143/83; PULSE 80; TEMP 36.8; O2SAT 91
[2017-08-23] MEDS: LORAZEPAM 1 MG TAB PO PRN (19:47)
[2017-08-23] MEDS: SIMVASTATIN 40 MG TAB PO SCH (19:48)
[2017-08-23] MEDS: DIGOXIN 0.25 MG TAB PO SCH (19:48)
[2017-08-23] MEDS: DOCUSATE SODIUM/SENNA 50/8.6MG TAB PO SCH (19:51)
[2017-08-23 20:00] VITALS: BP 131/73; PULSE 80; TEMP 36.4; O2SAT 92
[2017-08-23 23:01] VITALS: BP 127/81; PULSE 82; TEMP 36.6; O2SAT 94
[2017-08-24] VITALS (7 sets, daily range): BP systolic 123–172; BP diastolic 76–96; PULSE 69–85; TEMP 36.4–36.8; O2SAT 90–97
[2017-08-24] MEDS: LORAZEPAM 1 MG TAB PO PRN ×2 (00:18→08:46)
[2017-08-24] MEDS: MoRPHine SULFATE 5 MG/0.25 ML UDP PO PRN ×2 (05:28→20:19)
--- NOTE | 2017-08-24 07:37 | DIAGNOSTIC IMAGING REPORT ---
CHEST ONE VIEW PORTABLE CLINICAL HISTORY: Pleural effusion COMPARISON STUDY: 08/23/2017 FINDINGS: The cardiac and mediastinal contours remain stable. There is a persistent moderate left pleural effusion with associated left lung airspace opacities. The right lung remains essentially clear.[ There are postsurgical changes of a midline sternotomy, valvular replacement. There is a left subclavian pacer/defibrillator present. IMPRESSION: 1. Persistent left pleural effusion with progressive left lung airspace opacities Electronically signed by: Chin Mendoza M.D. 08/24/2017 7:36 AM Dictated Date/Time: 08/24/2017 7:34 AM
[2017-08-24 07:59] LABS: EOS % 0.3 %; EOS ABS # 0.03 K/uL (0-0.5); HEMATOCRIT 36.2 % (42-52); HEMOGLOBIN 11.8 g/dL (14.0-18.0); IG# 0.06 K/uL (0.00-0.02); LYMPH % 3.9 %; LYMPH ABS # 0.46 K/uL (1.2-3.4); MEAN CELL VOLUME 81.3 fL (80-100); MEAN CORPUSCULAR HEMOGLOBIN 26.5 pg (25-34); MEAN CORPUSCULAR HGB CONC 32.6 g/dl (32-36); MEAN PLATELET VOLUME 8.8 fL (7.4-10.4); MONO % 7.6 %; MONO ABS # 0.89 K/uL (0.11-0.59); NEUT % 87.7 %; NEUT ABS # 10.21 K/uL (1.4-6.5); PLATELET COUNT 218 K/uL (130-400); RED CELL DISTRIBUTION WIDTH SD 43.9 fL (36.4-46.3); WHITE BLOOD COUNT 11.65 K/uL (4.8-10.8)
[2017-08-24 08:06] LABS: INR 1.2 (0.9-1.1)
--- NOTE | 2017-08-24 08:08 | Pain Management Consultation ---
Pain Consultation Date of Service Aug 24, 2017. Pain Consultation The patient's pain management is being overseen by palliative medicine. The patient plans to go home on hospice in the very near future. Please reconsult should you have any additional pain management concerns.
[2017-08-24 08:31] LABS: CALCIUM 10.4 mg/dl (8.5-10.1); CREATININE 0.56 mg/dl (0.60-1.40); POTASSIUM 3.6 mmol/L (3.5-5.1)
[2017-08-24] MEDS: DOCUSATE SODIUM/SENNA 50/8.6MG TAB PO SCH ×2 (08:41→21:40)
[2017-08-24] MEDS: CHECK FENTANYL PATCH PLACEMENT SCH ×2 (08:41→16:02)
[2017-08-24] MEDS: LOSARTAN POTASSIUM 50 MG TAB PO SCH (08:41)
[2017-08-24] MEDS: CARVEDILOL 3.125 MG TAB PO SCH ×2 (08:41→21:40)
[2017-08-24] MEDS: SPIRONOLACTONE 25 MG TAB PO SCH (08:42)
[2017-08-24] MEDS: ASPIRIN 325 MG ECTAB PO SCH (08:42)
[2017-08-24] MEDS: FUROSEMIDE 20 MG TAB PO SCH (08:42)
--- NOTE | 2017-08-24 10:40 | Hematology/Oncology Prog Note ---
Hematology/Onc Progress Note Date of Service Aug 24, 2017. Diagnoses Metastatic non-small cell lung carcinoma Medications Medications Administered Medications (Trade) Dose Ordered Sig/Taryn Route Start Time Stop Time Status Last Admin Dose Admin Hydromorphone HCl (Dilaudid Inj) 1 mg NOW STAT IV 08/21/17 10:51 08/21/17 10:54 DC 08/21/17 11:25 1 MG Ondansetron HCl (Zofran Inj) 4 mg NOW STAT IV 08/21/17 10:51 08/21/17 10:55 DC 08/21/17 11:25 4 MG Phytonadione (Mephyton Tab) 5 mg NOW STAT PO 08/21/17 12:24 08/21/17 12:25 DC 08/21/17 12:44 5 MG Aspirin (Ecotrin Tab) 325 mg QAM PO 08/22/17 08:00 09/21/17 08:59 08/24/17 08:42 325 MG Carvedilol (Coreg Tab) 3.125 mg BID PO 08/21/17 20:00 09/20/17 20:59 08/24/17 08:41 3.125 MG Digoxin (Lanoxin Tab) 0.25 mg HS PO 08/21/17 21:00 09/20/17 20:59 08/23/17 19:48 0.25 MG Fentanyl (Duragesic Patch) 25 mcg Q72H TD 08/21/17 21:00 08/23/17 13:29 DC 08/21/17 20:44 25 MCG Furosemide (Lasix Tab) 20 mg QAM PO 08/22/17 08:00 09/21/17 08:59 08/24/17 08:42 20 MG Losartan Potassium (coZAAR TAB) 50 mg QAM PO 08/22/17 08:00 09/21/17 08:59 08/24/17 08:41 50 MG Oxycodone/ Acetaminophen (Percocet 7.5-325MG Tab) 1 tab Q4 PRN PO 08/21/17 14:00 08/23/17 13:28 DC 08/23/17 07:23 1 TAB Simvastatin (Zocor Tab) 40 mg QPM PO 08/21/17 21:00 09/20/17 20:59 08/23/17 19:48 40 MG Spironolactone (Aldactone Tab) 25 mg QAM PO 08/22/17 08:00 09/21/17 08:59 08/24/17 08:42 25 MG Morphine Sulfate (MoRPHine SULFATE INJ) 4 mg Q2H PRN IV 08/21/17 14:00 08/23/17 13:28 DC 08/23/17 12:26 4 MG Hydromorphone HCl (Dilaudid Inj) 1 mg NOW STAT IV 08/21/17 14:14 08/21/17 14:15 DC 08/21/17 14:20 1 MG Piperacillin Sod/ Tazobactam Sod 3.375 gm/Dextrose 115 ml @ 28.75 mls/ hr Q8H IV 08/22/17 00:00 08/23/17 18:05 DC 08/23/17 17:08 28.75 MLS/HR Piperacillin Sod/ Tazobactam Sod 3.375 gm/Dextrose 115 ml @ 230 mls/hr 1800 ONCE IV 08/21/17 18:00 08/21/17 18:29 DC 08/21/17 21:27 230 MLS/HR Miscellaneous (Fentanyl Patch Remove & Waste) 1 ea Q72H N/A 08/21/17 20:59 08/23/17 16:10 DC 08/21/17 20:41 1 EA Miscellaneous Information (Check Fentanyl Patch Placement) 1 ea QS N/A 08/22/17 00:00 09/21/17 00:00 08/24/17 08:41 1 EA Phytonadione 5 mg/ Sodium Chloride 50.5 ml @ 101 mls/hr ONE ONCE IV 08/22/17 01:30 08/22/17 01:59 DC 08/22/17 02:00 101 MLS/HR Morphine Sulfate (Roxanol Oral Soln) 5mg if rates pain 1-5 1... Q2H PRN PO 08/23/17 13:30 09/06/17 13:29 08/24/17 05:28 10 MG Lorazepam (Ativan Tab) 1 mg Q4H PRN PO 08/23/17 13:30 09/22/17 13:29 08/24/17 08:46 1 MG Fentanyl (Duragesic Patch) 50 mcg Q72H TD 08/23/17 16:15 09/06/17 16:14 08/23/17 17:09 50 MCG Miscellaneous (Fentanyl Patch Remove & Waste) 1 ea Q72H N/A 08/23/17 16:15 09/22/17 16:14 08/23/17 17:09 1 EA Senna/Docusate Sodium (Senokot S Tab) 1 tab BID PO 08/23/17 20:00 09/22/17 19:59 08/24/17 08:41 1 TAB Subjective Seems more obtunded today. He was incontinent of urine this morning. He does respond with verbal stimulation. There has been no seizure activity. Review of Systems: Really unable to obtain an accurate review of systems today Vital Signs Vital Signs Past 12 Hours Date Time Temp Pulse Resp B/P (MAP) Pulse Ox O2 Delivery O2 Flow Rate FiO2 08/24/17 09:31 69 123/78 (93) 08/24/17 08:10 Nasal Cannula 2.0 08/24/17 07:42 36.4 85 18 164/96 (118) 97 2.0 08/24/17 04:03 36.6 82 20 172/90 (117) 94 Room Air 08/24/17 00:00 Room Air 08/23/17 23:01 36.6 82 18 127/81 (96) 94 Room Air Physical Exam Constitutional: vitals are stable. Eyes: Eyes are JIMI EOMI without conjuctival erythema or icterus. ENT: External examination was negative for masses. Neck: Negative for masses or palpable thyromegaly Respiratory: Lung sounds were generally clear but decreased bilaterally Cardiovascular: Heart was RRR without significant murmur, gallops aoe rubs Gastrointestinal: No palpable hepatic or splenomegaly. The abdomen was soft with normal bowel sounds. Lymphatic system: there was no palpable peripheral lymphadenopathy Musculoskeletal System: The musculoskeletal system seemed concordant with age. Skin: The skin was negative for jaundice. Neurologic exam: Overall he was more somnolent today but without a definite focal deficit Laboratory Last 24 Hours Test 08/24/17 07:43 White Blood Count 11.65 K/uL Red Blood Count 4.45 M/uL Hemoglobin 11.8 g/dL Hematocrit 36.2 % Mean Corpuscular Volume 81.3 fL Mean Corpuscular Hemoglobin 26.5 pg Mean Corpuscular Hemoglobin Concent 32.6 g/dl Platelet Count 218 K/uL Mean Platelet Volume 8.8 fL Neutrophils (%) (Auto) 87.7 % Lymphocytes (%) (Auto) 3.9 % Monocytes (%) (Auto) 7.6 % Eosinophils (%) (Auto) 0.3 % Basophils (%) (Auto) 0.0 % Neutrophils # (Auto) 10.21 K/uL Lymphocytes # (Auto) 0.46 K/uL Monocytes # (Auto) 0.89 K/uL Eosinophils # (Auto) 0.03 K/uL Basophils # (Auto) 0.00 K/uL RDW Standard Deviation 43.9 fL RDW Coefficient of Variation 15.0 % Immature Granulocyte % (Auto) 0.5 % Immature Granulocyte # (Auto) 0.06 K/uL Prothrombin Time 12.6 SECONDS Prothromb Time International Ratio 1.2 Sodium Level 135 mmol/L Potassium Level 3.6 mmol/L Chloride Level 99 mmol/L Carbon Dioxide Level 27 mmol/L Anion Gap 9.0 mmol/L Blood Urea Nitrogen 20 mg/dl Creatinine 0.56 mg/dl Est Creatinine Clear Calc Drug Dose 120.1 ml/min Estimated GFR () 117.3 Estimated GFR (Non- 101.2 BUN/Creatinine Ratio 35.8 Random Glucose 172 mg/dl Calcium Level 10.4 mg/dl Assessment & Plan Metastatic non-small cell lung carcinoma. was present today. She reviewed with me that the plan for her is hospice care only. Radiation therapy will discuss with her about the role of potential radiation to the whole brain. head CT scan was reviewed. The PDL 1 assay was essentially 0. Other biomarker studies are pending but regardless the decision as reviewed with me by the is for the patient to move onto hospice. I certainly would agree and support that decision. No systemic therapy is planned. We will sign off as a service for now. Please do not hesitate to reconsult if necessary
--- NOTE | 2017-08-24 11:17 | Palliative Care Progress Note ---
Palliative Care Progress Note Date of Service Aug 24, 2017. Subjective Pt evaluation today including: conversation w/ patient, conversation w/ family ( Lisa), physical exam, chart review, conversation w/ healthcare network pricing consultant, review of inpatient medication list Pain: unable to assess PO Intake: small amounts/bites of food Voiding: incontinence -Patient was very agitated and restless this morning. Pulled IV out over night, pulling gown off. Was incontinent in bed. - at bedside. Met for a while to give support. Review of Systems unable to assess due to disorientation Objective Vital Signs Date Time Temp Pulse Resp B/P (MAP) Pulse Ox O2 Delivery O2 Flow Rate FiO2 08/24/17 09:31 69 123/78 (93) 08/24/17 08:10 Nasal Cannula 2.0 08/24/17 07:42 36.4 85 18 164/96 (118) 97 2.0 08/24/17 04:03 36.6 82 20 172/90 (117) 94 Room Air 08/24/17 00:00 Room Air 08/23/17 23:01 36.6 82 18 127/81 (96) 94 Room Air 08/23/17 20:00 36.4 80 18 131/73 (92) 92 Room Air 08/23/17 20:00 Room Air 08/23/17 19:48 80 08/23/17 19:45 36.8 80 18 143/83 (103) 91 Room Air 08/23/17 17:00 Room Air 08/23/17 12:20 36.8 70 18 138/84 (102) 94 Room Air Physical Exam General Appearance: + mild distress (restless and agitated) ENT: hearing grossly normal Neck: supple, no JVD Respiratory/Chest: lungs clear, no respiratory distress, no accessory muscle use Cardiovascular: regular rate, rhythm, no edema, + normal peripheral pulses Abdomen: normal bowel sounds, non tender, soft Neurologic/Psychiatric: + disoriented, + pertinent finding (agitated) Skin: normal color Laboratory Results Last 24 Hours Test 08/24/17 07:43 White Blood Count 11.65 K/uL Red Blood Count 4.45 M/uL Hemoglobin 11.8 g/dL Hematocrit 36.2 % Mean Corpuscular Volume 81.3 fL Mean Corpuscular Hemoglobin 26.5 pg Mean Corpuscular Hemoglobin Concent 32.6 g/dl Platelet Count 218 K/uL Mean Platelet Volume 8.8 fL Neutrophils (%) (Auto) 87.7 % Lymphocytes (%) (Auto) 3.9 % Monocytes (%) (Auto) 7.6 % Eosinophils (%) (Auto) 0.3 % Basophils (%) (Auto) 0.0 % Neutrophils # (Auto) 10.21 K/uL Lymphocytes # (Auto) 0.46 K/uL Monocytes # (Auto) 0.89 K/uL Eosinophils # (Auto) 0.03 K/uL Basophils # (Auto) 0.00 K/uL RDW Standard Deviation 43.9 fL RDW Coefficient of Variation 15.0 % Immature Granulocyte % (Auto) 0.5 % Immature Granulocyte # (Auto) 0.06 K/uL Prothrombin Time 12.6 SECONDS Prothromb Time International Ratio 1.2 Sodium Level 135 mmol/L Potassium Level 3.6 mmol/L Chloride Level 99 mmol/L Carbon Dioxide Level 27 mmol/L Anion Gap 9.0 mmol/L Blood Urea Nitrogen 20 mg/dl Creatinine 0.56 mg/dl Est Creatinine Clear Calc Drug Dose 120.1 ml/min Estimated GFR () 117.3 Estimated GFR (Non- 101.2 BUN/Creatinine Ratio 35.8 Random Glucose 172 mg/dl Calcium Level 10.4 mg/dl Assessment and Plan Problem list: Confusion- brain mets vs. narcotic use vs. hospitalization Pain, widespread SOB/TURNER- improved after thoracentesis Pleural effusion, left- 1600ml taken during thoracentesis on 08/22/17 Widely metastatic carcinoma- likely primary lung. Brain mets, bony mets. CHF with EF 20% Goals of care Palliative care recs: discussed with patient's and Dr. Feliciano. -Patient is now DNR, this coincides with his living will. -POLST form completed as follows: DNR, comfort measures only, abx with comfort as the goal, no artificial hydration/nutrition. -Plan is for home with hospice on Sunday. Sons will be here with to help care for patient. -Would add Haldol 1mg PO/SL Q4h PRN agitation. This can be crushed and slurried to give sublingually. -Patient did take his medications this morning, but if this becomes an issue with his agitation would be reasonable to just discontinue. -Would discontinue Zocor now. Thank you again for this consult. Patient to be leaving on Sunday, so I will sign off for now. Please contact me with any further palliative care needs. Discharge planning: home with Hospice
--- NOTE | 2017-08-24 14:37 | Radiation Oncology Progress Nt ---
Radiation Oncology Progress Nt Date of Service Date of Service: Aug 24, 2017. Reason For Admission Intractable pain Poor functional status, pleural effusion. Requesting Physician Primary hospital team, Dr. Rosales. Diagnosis (1) Lung cancer Development of left rib pain Finding of a left upper lobe lung nodule on CT 06/05/2017 Status post PET/CT revealing bone metastasis and possible brain metastases 06/20 Status post EBUS with biopsy of left lower lobe nodule revealing non-small cell carcinoma 06/22/2017 Status post completion of palliative radiation therapy to the left rib and left hip 08/17/2017. He received 3000 cGy Last Edited By: Tiarra Chong on Aug 23, 2017 10:51 Subjective Pt evaluation today including: conversation w/ patient, conversation w/ family , conversation with hospitalist, conversation with inpatient team, conversation w/ business process consultant (Dr. Munguia) Objective Vital Signs Date Time Temp Pulse Resp B/P (MAP) Pulse Ox O2 Delivery O2 Flow Rate FiO2 08/24/17 11:52 36.8 73 18 128/87 (101) 90 08/24/17 09:31 69 123/78 (93) 08/24/17 08:10 Nasal Cannula 2.0 08/24/17 07:42 36.4 85 18 164/96 (118) 97 2.0 08/24/17 04:03 36.6 82 20 172/90 (117) 94 Room Air 08/24/17 00:00 Room Air 08/23/17 23:01 36.6 82 18 127/81 (96) 94 Room Air 08/23/17 20:00 36.4 80 18 131/73 (92) 92 Room Air 08/23/17 20:00 Room Air 08/23/17 19:48 80 08/23/17 19:45 36.8 80 18 143/83 (103) 91 Room Air 08/23/17 17:00 Room Air Physical Exam General Appearance: + mild distress Neurologic/Psychiatric: + depressed affect, + disoriented Radiological Studies CT SCAN OF THE BRAIN COMBO - 08/23/17 CLINICAL HISTORY: Intracranial metastatic disease. COMPARISON STUDY: CT of the brain dated 06/27/2017. TECHNIQUE: Axial CT scan of the brain is performed from the vertex to the skull base before and following the IV administration of 94 cc of Optiray 320. IV contrast was administered without application. A dose lowering technique was utilized adhering to the principles of ALARA. CT DOSE: 1425.10 mGy.cm FINDINGS: Brain parenchyma: There are age-related involutional changes noting mild to moderate subcortical and periventricular microangiopathic change. Again seen is a large heterogeneous mass lesion in the left frontal lobe. This measures approximately 5.7 cm and there is surrounding edema. This appears to contain internal calcifications as well as faint postcontrast enhancement. This effaces the overlying cortical sulci. A 2.5 cm right cerebellar mass lesion is again seen. Again, cannot determine of this is intra or extra-axial. There is mild surrounding edema. There is no hemorrhage, midline shift, or evidence of acute territorial ischemia by CT criteria. No extra-axial fluid collection is seen. Ventricles, sulci, cisterns: Prominent secondary to involutional change. See above. Intracranial vasculature: There is atherosclerotic calcification of the cavernous carotid and vertebral arteries. Calvarium: No lytic or blastic lesion is seen. Sinuses and mastoids: The visualized paranasal sinuses are clear. The mastoid air cells are well pneumatized. Orbits: The bony orbits are grossly intact. A retinal calcification is noted on the right. IMPRESSION: 1. There is unchanged appearance of left frontal and right cerebellar mass lesions as compared to 06/27/2017. These cause localized mass effect and are pathologically indeterminant. These could be intra or extra-axial in location. 2. No new or enlarging lesion is suggested. 3. There is no hemorrhage or evidence of acute territorial ischemia by CT criteria Laboratory Results Last 24 Hours Test 08/24/17 07:43 White Blood Count 11.65 K/uL Red Blood Count 4.45 M/uL Hemoglobin 11.8 g/dL Hematocrit 36.2 % Mean Corpuscular Volume 81.3 fL Mean Corpuscular Hemoglobin 26.5 pg Mean Corpuscular Hemoglobin Concent 32.6 g/dl Platelet Count 218 K/uL Mean Platelet Volume 8.8 fL Neutrophils (%) (Auto) 87.7 % Lymphocytes (%) (Auto) 3.9 % Monocytes (%) (Auto) 7.6 % Eosinophils (%) (Auto) 0.3 % Basophils (%) (Auto) 0.0 % Neutrophils # (Auto) 10.21 K/uL Lymphocytes # (Auto) 0.46 K/uL Monocytes # (Auto) 0.89 K/uL Eosinophils # (Auto) 0.03 K/uL Basophils # (Auto) 0.00 K/uL RDW Standard Deviation 43.9 fL RDW Coefficient of Variation 15.0 % Immature Granulocyte % (Auto) 0.5 % Immature Granulocyte # (Auto) 0.06 K/uL Prothrombin Time 12.6 SECONDS Prothromb Time International Ratio 1.2 Sodium Level 135 mmol/L Potassium Level 3.6 mmol/L Chloride Level 99 mmol/L Carbon Dioxide Level 27 mmol/L Anion Gap 9.0 mmol/L Blood Urea Nitrogen 20 mg/dl Creatinine 0.56 mg/dl Est Creatinine Clear Calc Drug Dose 120.1 ml/min Estimated GFR () 117.3 Estimated GFR (Non- 101.2 BUN/Creatinine Ratio 35.8 Random Glucose 172 mg/dl Calcium Level 10.4 mg/dl Assessment and Plan Mr. Craft is a 76-year-old gentleman with metastatic lung cancer to bone. He recently completed a course of palliative external beam radiation therapy. There was a tentative plan to potentially treat a possible dural metastatic deposit with radiation therapy. The patient did have a repeat scan completed during this admission course which shows stable findings overall. We were asked to reevaluate the patient during this admission for a potential consideration of radiation therapy. I did have a robin conversation with the patient and his and explained to them that most likely his current symptoms are unrelated to his intracranial disease so it is questionable whether radiation therapy will improve his symptoms. Unfortunately, the patient is continuing to decline and the family/ patient are electing to stop all treatment and the patient is going to go home on hospice. Given the circumstances, we are advising against radiation therapy at this point given there is a low likelihood for a potential benefit for the patient given his overall performance status which is poor. Please call us if there are any further questions or concerns. I've encouraged the patient's to also call me if she or the family has any further questions or concerns.
--- NOTE | 2017-08-24 18:27 | Family Medicine Progress Note ---
Progress Note Date of Service Aug 24, 2017. Subjective Pt evaluation today including: conversation w/ patient, physical exam, chart review, lab review Pain: well controlled Voiding: winter catheter in place Appears to be very sedated today. Per his , he was very agitated and was ripping his gown and IV . Received Ativan for agitation Additional Comments: unable to obtain ROS as he appears to be very sedated Medications Current Inpatient Medications Medications (Trade) Dose Ordered Sig/Taryn Route Start Time Stop Time Status Last Admin Dose Admin Acetaminophen (Tylenol Tab) 650 mg Q4H PRN PO 08/21/17 14:00 09/20/17 13:59 Polyethylene (Miralax Powder Packet) 17 gm DAILY PRN PO 08/21/17 14:00 09/20/17 13:59 Ondansetron HCl (Zofran Inj) 4 mg Q6H PRN IV 08/21/17 14:00 09/20/17 13:59 Aspirin (Ecotrin Tab) 325 mg QAM PO 08/22/17 08:00 09/21/17 08:59 08/24/17 08:42 325 MG Carvedilol (Coreg Tab) 3.125 mg BID PO 08/21/17 20:00 09/20/17 20:59 08/24/17 08:41 3.125 MG Digoxin (Lanoxin Tab) 0.25 mg HS PO 08/21/17 21:00 09/20/17 20:59 08/23/17 19:48 0.25 MG Furosemide (Lasix Tab) 20 mg QAM PO 08/22/17 08:00 09/21/17 08:59 08/24/17 08:42 20 MG Losartan Potassium (coZAAR TAB) 50 mg QAM PO 08/22/17 08:00 09/21/17 08:59 08/24/17 08:41 50 MG Spironolactone (Aldactone Tab) 25 mg QAM PO 08/22/17 08:00 09/21/17 08:59 08/24/17 08:42 25 MG Miscellaneous Information (Check Fentanyl Patch Placement) 1 ea QS N/A 08/22/17 00:00 09/21/17 00:00 08/24/17 16:02 1 EA Morphine Sulfate (Roxanol Oral Soln) 5mg if rates pain 1-5 1... Q2H PRN PO 08/23/17 13:30 09/06/17 13:29 08/24/17 05:28 10 MG Ioversol (Optiray 320) 100 ml UD PRN IV 08/23/17 14:45 08/27/17 14:44 Fentanyl (Duragesic Patch) 50 mcg Q72H TD 08/23/17 16:15 09/06/17 16:14 08/23/17 17:09 50 MCG Miscellaneous (Fentanyl Patch Remove & Waste) 1 ea Q72H N/A 08/23/17 16:15 09/22/17 16:14 08/23/17 17:09 1 EA Senna/Docusate Sodium (Senokot S Tab) 1 tab BID PO 08/23/17 20:00 09/22/17 19:59 08/24/17 08:41 1 TAB Lorazepam (Ativan Tab) 0.5 mg Q4H PRN PO 08/24/17 16:30 09/22/17 13:29 Haloperidol (Haldol Tab) 1 mg Q4H PRN PO 08/24/17 16:30 09/23/17 16:29 Objective Vital Signs Date Time Temp Pulse Resp B/P (MAP) Pulse Ox O2 Delivery O2 Flow Rate FiO2 08/24/17 16:20 Room Air 08/24/17 15:16 36.6 69 17 145/81 (102) 93 Room Air 08/24/17 11:52 36.8 73 18 128/87 (101) 90 08/24/17 09:31 69 123/78 (93) 08/24/17 08:10 Nasal Cannula 2.0 08/24/17 07:42 36.4 85 18 164/96 (118) 97 2.0 08/24/17 04:03 36.6 82 20 172/90 (117) 94 Room Air 08/24/17 00:00 Room Air 08/23/17 23:01 36.6 82 18 127/81 (96) 94 Room Air 08/23/17 20:00 36.4 80 18 131/73 (92) 92 Room Air 08/23/17 20:00 Room Air 08/23/17 19:48 80 08/23/17 19:45 36.8 80 18 143/83 (103) 91 Room Air Physical Exam General Appearance: WD/WN, + mild distress Neck: supple Respiratory/Chest: chest non-tender Cardiovascular: regular rate, rhythm Abdomen: normal bowel sounds, non tender, soft Neurologic/Psychiatric: alert, normal mood/affect, oriented x 3 Skin: normal color Laboratory Results Last 24 Hours Test 08/24/17 07:43 White Blood Count 11.65 K/uL Red Blood Count 4.45 M/uL Hemoglobin 11.8 g/dL Hematocrit 36.2 % Mean Corpuscular Volume 81.3 fL Mean Corpuscular Hemoglobin 26.5 pg Mean Corpuscular Hemoglobin Concent 32.6 g/dl Platelet Count 218 K/uL Mean Platelet Volume 8.8 fL Neutrophils (%) (Auto) 87.7 % Lymphocytes (%) (Auto) 3.9 % Monocytes (%) (Auto) 7.6 % Eosinophils (%) (Auto) 0.3 % Basophils (%) (Auto) 0.0 % Neutrophils # (Auto) 10.21 K/uL Lymphocytes # (Auto) 0.46 K/uL Monocytes # (Auto) 0.89 K/uL Eosinophils # (Auto) 0.03 K/uL Basophils # (Auto) 0.00 K/uL RDW Standard Deviation 43.9 fL RDW Coefficient of Variation 15.0 % Immature Granulocyte % (Auto) 0.5 % Immature Granulocyte # (Auto) 0.06 K/uL Prothrombin Time 12.6 SECONDS Prothromb Time International Ratio 1.2 Sodium Level 135 mmol/L Potassium Level 3.6 mmol/L Chloride Level 99 mmol/L Carbon Dioxide Level 27 mmol/L Anion Gap 9.0 mmol/L Blood Urea Nitrogen 20 mg/dl Creatinine 0.56 mg/dl Est Creatinine Clear Calc Drug Dose 120.1 ml/min Estimated GFR () 117.3 Estimated GFR (Non- 101.2 BUN/Creatinine Ratio 35.8 Random Glucose 172 mg/dl Calcium Level 10.4 mg/dl Assessment and Plan 76-year-old male with past medical history of 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 Rapidly declining with worsening agitation and confusion Agitation/confusion -Secondary to brain metastases/pain meds/hospitalization -Ativan and Haldol when necessary Non-small cell lung cancer with metastasis to brain, spine: -Received 10 sessions of radiation therapy, had consult with radiation oncologist today and the family has decided not to go ahead with radiation therapy and seek hospice care. - Continue fentanyl 50 g patch daily, Roxanol 5-10 mg for breakthrough pain and Ativan 1 mg every 4 hours as needed, Haldol 1mg PO/SL Q4h PRN agitation for agitation - POLST completed today and resuscitation status was changed to DO NOT RESUSCITATE, comfort measures only, abx with comfort as the goal, no artificial hydration/nutrition. Supratherapeutic INR -resolved - INR down to 1.2, Warfarin discontinued Acute hypoxemic respiratory failure secondary to large left pleural effusion - Status post thoracocentesis 2- pending cultures, cytology revealed mesothelial cells - Oxygen via NC as needed - Zosyn empirically to cover GI and lung sources CAD s/p CABG x 3 vessels / Chronic sCHF with EF = 20% / HTN / Afib - Echo reports mild LV dilation and borderline LV hypertrophy. Severely reduced LVEF = 15-20%. Severely dilated LA - Currently rate controlled, continue digoxin 250mcg daily, carvedilol 3.125mg BID, lasix 20mg daily, losartan 50mg daily, warfarin held HLD -Stop simvastatin 40 mg HS DVT ppx SCDs DO NOT RESUSCITATE Disposition: To be discharged with home hospice on Sunday Resident Tracking Resident Involvement: Resident Care Provided Care Provided: Adult Hospital Medicine Reviewed: Pt Seen/Exam by Me History Resident Physician Supervision Note: I interviewed and examined the patient. Discussed with Dr. Moreno and agree with findings and plan as documented in the note. Any exceptions or clarifications are listed here: Patient is a 76-year-old male with a history of recently diagnosed metastatic non-small cell lung carcinoma who presented with progressive shortness of breath , weakness, and home nurse found his INR to be greater than 10. He is not currently having any symptoms of bleeding. His hemoglobin is fairly close to normal, but he was found to have a very large left sided pleural effusion and acute hypoxemic respiratory failure on admission. He was given vitamin K 5 mg IV 1 in the ER, followed by 2 units FFP. He underwent thoracentesis which is exudative, cytology with some atypical cells- reactive mesothelial cells versus malignant cells He has been started on liquid Roxanol for pain and increased his fentanyl patch to 50 as per palliative care medicine. He and his have decided to go home with hospice. He was evaluated by radiation oncology and he will not have any further XRT either. Medical oncology has also deferred any palliative chemotherapy. Today, the reports excessive sedation and is concerned as he has not eaten all day long and has only had minimal by mouth liquid intake. He has received several doses of Ativan. He does wake up and say a few words to me and then falls back asleep quickly Vitals reviewed NAD Regular rate and rhythm, 2/6 systolic ejection murmur at the right upper sternal border Lungs with diminished breath sounds in the left lower and mid lung manley, otherwise with a few crackles at the right base Abdomen positive bowel sounds soft nontender nondistended Extremities 1+ pitting edema bilaterally in the legs This is a 76 yo F with PMHx of NSCLC with mets to brain, bones, CAD s/p CABG x 3 vessels, with SVG to LAD, biventricular ICD placement in 2012, Afib, HTN, HLD , chronic systolic CHF with EF = 20%, and aortic stenosis who presents after home health nursing checked INR and was > 10, along with progressive shortness of breath and weakness. Acute hypoxemic respiratory failure/large left-sided pleural effusion-now status post thoracentesis-most likely a malignant effusion, however cytology not definitive, but could have some element of acute on chronic systolic CHF, but does not appear to be infectious-is most likely malignant in nature -he is a possible candidate for Pleurx catheter placement in the future-he should follow with thoracic surgery as an outpatient in one week with chest x- ray-on the Fluid Pl., Pleurx at this time as per my discussion with thoracic surgery -Would not recommend restarting Coumadin as he is going home on hospice -Continue home diuretics for comfort -Discontinue statin -Decrease Ativan to 0.5 mg as per 's request for reduced sedation, trial of low-dose by mouth Haldol as well -Overall very poor prognosis given his metastatic disease, severe CHF, consult palliative care appreciated-plans for home with hospice after all equipment delivered to [place] on Sunday -Continue supportive care with supplemental oxygen, pain control Documented By: Eri Rosales Documented By: Eri Rosales <Electronically signed by Eri Rosales MD> 08/23/17918 Addendum: 08/23/1745 Addendum: Eri Rosales MD on 08/23/17 @ 09:45 Addendum Section A/P addendum: Coumadin coagulopathy-INR greater than 10 on admission, on Coumadin at home for paroxysmal atrial fibrillation-treated with vitamin K, 2 units FFP
[2017-08-24] MEDS ORDERED: FENTANYL 50 MCG/HR TDSY TD SCH (21:00)
[2017-08-24] MEDS: DIGOXIN 0.25 MG TAB PO SCH (21:39)
[2017-08-24] MEDS: HALOPERIDOL 1 MG TAB PO PRN (21:40)
[2017-08-24] MEDS: LORAZEPAM 0.5 MG TAB PO PRN (22:47)
[2017-08-25] VITALS (8 sets, daily range): BP systolic 121–167; BP diastolic 72–88; PULSE 70–79; TEMP 35.5–36.6; O2SAT 90–97
[2017-08-25] MEDS: MoRPHine SULFATE 5 MG/0.25 ML UDP PO PRN ×9 (00:29→23:58)
[2017-08-25] MEDS: CHECK FENTANYL PATCH PLACEMENT SCH ×4 (00:29→23:41)
[2017-08-25] MEDS: LORAZEPAM 0.5 MG TAB PO PRN ×3 (02:22→23:58)
[2017-08-25] MEDS: SPIRONOLACTONE 25 MG TAB PO SCH (07:52)
[2017-08-25] MEDS: CARVEDILOL 3.125 MG TAB PO SCH ×2 (07:53→21:52)
[2017-08-25] MEDS: DOCUSATE SODIUM/SENNA 50/8.6MG TAB PO SCH ×2 (07:53→21:51)
[2017-08-25] MEDS: FUROSEMIDE 20 MG TAB PO SCH (07:53)
[2017-08-25] MEDS: LOSARTAN POTASSIUM 50 MG TAB PO SCH (07:54)
[2017-08-25] MEDS: ASPIRIN 325 MG ECTAB PO SCH (07:54)
--- NOTE | 2017-08-25 09:30 | PULMONARY PROGRESS NOTE ---
DATE: 08/25/2017 SUBJECTIVE: The patient's lab studies were reviewed and the pleural fluid that was drained showed atypical cells, although not diagnostic for neoplasm, certainly worrisome for metastatic disease in the pleura. Post-thoracentesis chest x-ray still shows a considerable amount of fluid in the pleural space without atelectasis involving the left lower lobe with probable mass. Although patient is receiving palliative care and apparently, a decision was made in discussing with the family for the patient made hospice if his symptoms become problematic and a PleurX catheter may be indicated or at least can assist him with resolution of some of his discomfort. We will continue to follow with you.
[2017-08-25] MEDS: HALOPERIDOL 1 MG TAB PO PRN (15:52)
[2017-08-25] MEDS ORDERED: BISACODYL 10 MG SUPP PR STA (16:09)
--- NOTE | 2017-08-25 16:09 | Family Medicine Progress Note ---
Progress Note Date of Service Aug 25, 2017. Subjective Pt evaluation today including: conversation w/ patient, physical exam, chart review, lab review, review of studies Pain: No complaints of pain Voiding: no voiding problems, no incontinence Patient resting comfortably in bed this morning with no acute complaints. Appears to have waxing and waning alertness and sometime difficult to understand. Denies any pain or shortness of breath on exam this morning and states he is comfortable. Constitutional: No fever Respiratory: No cough, No shortness of breath Cardiovascular: No chest pain Abdomen: No pain Medications Current Inpatient Medications Medications (Trade) Dose Ordered Sig/Taryn Route Start Time Stop Time Status Last Admin Dose Admin Acetaminophen (Tylenol Tab) 650 mg Q4H PRN PO 08/21/17 14:00 09/20/17 13:59 Polyethylene (Miralax Powder Packet) 17 gm DAILY PRN PO 08/21/17 14:00 09/20/17 13:59 Ondansetron HCl (Zofran Inj) 4 mg Q6H PRN IV 08/21/17 14:00 09/20/17 13:59 Aspirin (Ecotrin Tab) 325 mg QAM PO 08/22/17 08:00 09/21/17 08:59 08/25/17 07:54 325 MG Carvedilol (Coreg Tab) 3.125 mg BID PO 08/21/17 20:00 09/20/17 20:59 08/25/17 07:53 3.125 MG Digoxin (Lanoxin Tab) 0.25 mg HS PO 08/21/17 21:00 09/20/17 20:59 08/24/17 21:39 0.25 MG Furosemide (Lasix Tab) 20 mg QAM PO 08/22/17 08:00 09/21/17 08:59 08/25/17 07:53 20 MG Losartan Potassium (coZAAR TAB) 50 mg QAM PO 08/22/17 08:00 09/21/17 08:59 08/25/17 07:54 50 MG Spironolactone (Aldactone Tab) 25 mg QAM PO 08/22/17 08:00 09/21/17 08:59 08/25/17 07:52 25 MG Miscellaneous Information (Check Fentanyl Patch Placement) 1 ea QS N/A 08/22/17 00:00 09/21/17 00:00 08/25/17 15:30 1 EA Ioversol (Optiray 320) 100 ml UD PRN IV 08/23/17 14:45 08/27/17 14:44 Fentanyl (Duragesic Patch) 50 mcg Q72H TD 08/23/17 16:15 09/06/17 16:14 08/23/17 17:09 50 MCG Miscellaneous (Fentanyl Patch Remove & Waste) 1 ea Q72H N/A 08/23/17 16:15 09/22/17 16:14 08/23/17 17:09 1 EA Senna/Docusate Sodium (Senokot S Tab) 1 tab BID PO 08/23/17 20:00 09/22/17 19:59 08/25/17 07:53 1 TAB Lorazepam (Ativan Tab) 0.5 mg Q4H PRN PO 08/24/17 16:30 09/22/17 13:29 08/25/17 07:52 0.5 MG Haloperidol (Haldol Tab) 1 mg Q4H PRN PO 08/24/17 16:30 09/23/17 16:29 08/24/17 21:40 1 MG Morphine Sulfate (Roxanol Oral Soln) 10 mg Q2H PRN PO 08/25/17 05:30 09/08/17 05:29 08/25/17 07:51 10 MG Morphine Sulfate (Roxanol Oral Soln) 5 mg Q2H PRN PO 08/25/17 05:30 09/08/17 05:29 08/25/17 14:41 5 MG Objective Vital Signs Date Time Temp Pulse Resp B/P (MAP) Pulse Ox O2 Delivery O2 Flow Rate FiO2 08/25/17 11:35 35.9 72 20 158/88 (111) 92 Room Air 08/25/17 08:00 97 Room Air 08/25/17 07:23 36.6 79 18 167/84 (111) 90 Room Air 08/25/17 04:19 36.5 77 20 166/79 (108) 92 Room Air 08/25/17 00:40 Room Air 08/24/17 23:26 36.5 75 20 133/83 (100) 96 Room Air 08/24/17 21:39 76 08/24/17 19:49 36.5 79 20 152/76 (101) 94 Room Air 08/24/17 16:20 Room Air Physical Exam General Appearance: WD/WN, no apparent distress Eyes: normal inspection, sclerae normal Neck: supple, no carotid bruits Respiratory/Chest: chest non-tender, lungs clear, normal breath sounds Cardiovascular: regular rate, rhythm, no edema, no gallop Abdomen: normal bowel sounds, non tender, soft Extremities: no calf tenderness Neurologic/Psychiatric: + disoriented Assessment and Plan 76-year-old male with past medical history of 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 Agitation/confusion - improved control with current medication regimen - Secondary to brain metastases/pain meds/hospitalization - Ativan decreased to 0.5mg PO q4h because was too sedated (previous dose 1mg PO q4h) - Haldol 1mg PO/SL q4h PRN Non-small cell lung cancer with metastasis to brain, spine: - Discussed with palliative care plan to go on Hospice with plan for placement Sunday - Received 10 sessions of radiation therapy, had consult with radiation oncologist Sunday and agreed with family on no further Radiation - Continue fentanyl 50 g patch daily, Roxanol 5-10 mg for breakthrough pain and Ativan 0.5 mg every 4 hours as needed, Haldol 1mg PO/SL Q4h PRN agitation for agitation - POLST completed with Resuscitation changed to DO NOT RESUSCITATE, comfort measures only Constipation - Bisacodyl Suppository Supratherapeutic INR - Resolved - INR down to 1.2 - Warfarin discontinued Acute hypoxemic respiratory failure secondary to large left pleural effusion - Status post thoracocentesis, cytology revealed mesothelial cells - First culture from Thoracentesis grew Staph Species - Oxygen via NC as needed, currently on room air - Zosyn empirically to cover GI and lung sources CAD s/p CABG x 3 vessels / Chronic sCHF with EF = 20% / HTN / Afib - Echo reports mild LV dilation and borderline LV hypertrophy. Severely reduced LVEF = 15-20%. Severely dilated LA - Currently rate controlled, continue digoxin 250mcg daily, carvedilol 3.125mg BID, lasix 20mg daily, losartan 50mg daily, warfarin held HLD - Stop simvastatin 40 mg HS DVT ppx - SCDs DO NOT RESUSCITATE Disposition: To be discharged with home hospice on Sunday Resident Tracking Resident Involvement: Resident Care Provided Care Provided: Adult Hospital Medicine Reviewed: Pt Seen/Exam by Me History Resident Physician Supervision Note: I interviewed and examined the patient. Discussed with Dr. Arango and agree with findings and plan as documented in the note. Any exceptions or clarifications are listed here: Patient is a 76-year-old male with a history of recently diagnosed metastatic non-small cell lung carcinoma who presented with progressive shortness of breath , weakness, and home nurse found his INR to be greater than 10. He is not currently having any symptoms of bleeding. His hemoglobin is fairly close to normal, but he was found to have a very large left sided pleural effusion and acute hypoxemic respiratory failure on admission. He was given vitamin K 5 mg IV 1 in the ER, followed by 2 units FFP. He underwent thoracentesis which is exudative, cytology with some atypical cells- reactive mesothelial cells versus malignant cells, now growing few Staphylococcus species out of the fluid. He has been started on liquid Roxanol for pain and increased his fentanyl patch to 50 as per palliative care medicine. He and his have decided to go home with hospice. He was evaluated by radiation oncology and he will not have any further XRT either. Medical oncology has also deferred any palliative chemotherapy. Patient is having breakthrough pain at the time I saw him, he is sleeping but wakes up and moans and grabs his left hip. states though that he was more alert this morning with the lowered dose of Ativan and she is pleased with that. Vitals reviewed NAD Regular rate and rhythm, 2/6 systolic ejection murmur at the right upper sternal border Lungs with diminished breath sounds in the left lower and mid lung manley, otherwise with a few crackles at the right base Abdomen positive bowel sounds soft nontender nondistended Extremities 2+ pitting edema bilaterally in the legs This is a 76 yo F with PMHx of NSCLC with mets to brain, bones, CAD s/p CABG x 3 vessels, with SVG to LAD, biventricular ICD placement in 2012, Afib, HTN, HLD , chronic systolic CHF with EF = 20%, and aortic stenosis who presents after home health nursing checked INR and was > 10, along with progressive shortness of breath and weakness. Acute hypoxemic respiratory failure/large left-sided pleural effusion-now status post thoracentesis-most likely a malignant effusion, however cytology not definitive, but could have some element of acute on chronic systolic CHF, but does not appear to be infectious-is most likely malignant in nature -he is a possible candidate for Pleurx catheter placement in the future-he should follow with thoracic surgery as an outpatient in one week with chest x- ray.we'll hold off on Pleurx at this time as per my discussion with thoracic surgery -Would not recommend restarting Coumadin as he is going home on hospice -Continue home diuretics for comfort -Discontinue statin -Decreased Ativan to 0.5 mg as per 's request for reduced sedation, continue by mouth Haldol as well -Overall very poor prognosis given his metastatic disease, severe CHF, consult palliative care appreciated-plans for home with hospice after all equipment delivered to his house on Sunday -Continue supportive care -Coumadin coagulopathy-INR greater than 10 on admission, on Coumadin at home for paroxysmal atrial fibrillation-treated with vitamin K, 2 units FFP Documented By: Eri Rosales
[2017-08-25] MEDS: DIGOXIN 0.25 MG TAB PO SCH (21:52)
[2017-08-26] VITALS (8 sets, daily range): BP systolic 98–183; BP diastolic 63–99; PULSE 64–82; TEMP 34.6–36.5; O2SAT 89–94
[2017-08-26] MEDS: MoRPHine SULFATE 5 MG/0.25 ML UDP PO PRN ×11 (02:03→23:05)
[2017-08-26] MEDS: LORAZEPAM 0.5 MG TAB PO PRN ×5 (05:13→23:04)
[2017-08-26] MEDS: HALOPERIDOL 1 MG TAB PO PRN ×2 (05:13→19:22)
[2017-08-26] MEDS: CHECK FENTANYL PATCH PLACEMENT SCH ×2 (08:29→16:10)
[2017-08-26] MEDS: DOCUSATE SODIUM/SENNA 50/8.6MG TAB PO SCH ×2 (08:30→19:22)
[2017-08-26] MEDS: FUROSEMIDE 20 MG TAB PO SCH (08:30)
[2017-08-26] MEDS: SPIRONOLACTONE 25 MG TAB PO SCH (08:31)
[2017-08-26] MEDS: ASPIRIN 325 MG ECTAB PO SCH (08:31)
[2017-08-26] MEDS: CARVEDILOL 3.125 MG TAB PO SCH ×2 (08:32→19:26)
[2017-08-26] MEDS: LOSARTAN POTASSIUM 50 MG TAB PO SCH (08:32)
[2017-08-26] MEDS ORDERED: NURSING VERBAL MED ORDER ONE (16:00)
[2017-08-26] MEDS: FENTANYL PATCH REMOVE & WASTE SCH (16:10)
[2017-08-26] MEDS: FENTANYL 50 MCG/HR TDSY TD SCH (16:13)
[2017-08-26] MEDS ORDERED: BISACODYL 10 MG SUPP PR ONE (16:15)
[2017-08-26] MEDS ORDERED: GLYCERIN ADULT 1 EA SUPP PR PRN (16:30)
[2017-08-26] MEDS ORDERED: LORAZEPAM 0.5 MG TAB ONE (17:25)
[2017-08-26] MEDS: DIGOXIN 0.25 MG TAB PO SCH (19:25)
--- NOTE | 2017-08-26 22:00 | Family Medicine Progress Note ---
Progress Note Date of Service Aug 26, 2017. Subjective Pt evaluation today including: conversation w/ patient, physical exam, chart review, lab review, review of studies Pain: No pain reported Voiding: incontinence Patient in bed this morning and denies any acute complaints. Not oriented and waxing and waning consciousness. Additional Comments: Difficult to obtain full ROS due to altered mental status Medications Current Inpatient Medications Medications (Trade) Dose Ordered Sig/Taryn Route Start Time Stop Time Status Last Admin Dose Admin Acetaminophen (Tylenol Tab) 650 mg Q4H PRN PO 08/21/17 14:00 09/20/17 13:59 Polyethylene (Miralax Powder Packet) 17 gm DAILY PRN PO 08/21/17 14:00 09/20/17 13:59 Ondansetron HCl (Zofran Inj) 4 mg Q6H PRN IV 08/21/17 14:00 09/20/17 13:59 Aspirin (Ecotrin Tab) 325 mg QAM PO 08/22/17 08:00 09/21/17 08:59 08/26/17 08:31 325 MG Carvedilol (Coreg Tab) 3.125 mg BID PO 08/21/17 20:00 09/20/17 20:59 08/26/17 08:32 3.125 MG Digoxin (Lanoxin Tab) 0.25 mg HS PO 08/21/17 21:00 09/20/17 20:59 08/26/17 19:25 0.25 MG Furosemide (Lasix Tab) 20 mg QAM PO 08/22/17 08:00 09/21/17 08:59 08/26/17 08:30 20 MG Losartan Potassium (coZAAR TAB) 50 mg QAM PO 08/22/17 08:00 09/21/17 08:59 08/26/17 08:32 50 MG Spironolactone (Aldactone Tab) 25 mg QAM PO 08/22/17 08:00 09/21/17 08:59 08/26/17 08:31 25 MG Miscellaneous Information (Check Fentanyl Patch Placement) 1 ea QS N/A 08/22/17 00:00 09/21/17 00:00 08/26/17 16:10 1 EA Ioversol (Optiray 320) 100 ml UD PRN IV 08/23/17 14:45 08/27/17 14:44 Fentanyl (Duragesic Patch) 50 mcg Q72H TD 08/23/17 16:15 09/06/17 16:14 08/26/17 16:13 50 MCG Miscellaneous (Fentanyl Patch Remove & Waste) 1 ea Q72H N/A 08/23/17 16:15 09/22/17 16:14 08/26/17 16:10 1 EA Senna/Docusate Sodium (Senokot S Tab) 1 tab BID PO 08/23/17 20:00 09/22/17 19:59 08/26/17 19:22 1 TAB Haloperidol (Haldol Tab) 1 mg Q4H PRN PO 08/24/17 16:30 09/23/17 16:29 08/26/17 19:22 1 MG Glycerin (Glycerin Adult Supp) 1 ea TODAY@1815 PRN CO 08/26/17 16:30 08/26/17 23:59 08/26/17 21:27 1 EA Morphine Sulfate (Roxanol Oral Soln) 5 mg Q1H PRN PO 08/26/17 17:00 09/08/17 05:29 08/26/17 21:27 5 MG Lorazepam (Ativan Tab) 0.5 mg Q1H PRN PO 08/26/17 17:15 09/22/17 13:29 08/26/17 21:25 0.5 MG Objective Vital Signs Date Time Temp Pulse Resp B/P (MAP) Pulse Ox O2 Delivery O2 Flow Rate FiO2 08/26/17 20:10 Room Air 08/26/17 19:40 36.4 80 20 154/90 (111) 93 Room Air 08/26/17 19:25 68 08/26/17 16:15 36.5 94 Room Air 08/26/17 16:00 93 Room Air 08/26/17 15:49 34.6 82 20 98/63 (75) 89 Room Air 08/26/17 11:16 64 18 144/76 (98) 94 Room Air 08/26/17 08:02 36.1 72 16 146/99 (115) 92 Room Air 08/26/17 08:00 93 Room Air 08/26/17 04:43 36.4 72 20 183/85 (117) 93 Room Air 08/26/17 00:15 Room Air 08/25/17 23:11 70 18 127/81 (96) 92 Room Air Physical Exam General Appearance: WD/WN, no apparent distress Eyes: normal inspection, sclerae normal Respiratory/Chest: chest non-tender, lungs clear, normal breath sounds Cardiovascular: regular rate, rhythm, no edema, no gallop Abdomen: normal bowel sounds, non tender, soft Neurologic/Psychiatric: + disoriented Assessment and Plan 76-year-old male with past medical history of 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 Agitation/confusion - improved control with current medication regimen - Secondary to brain metastases/pain meds/hospitalization - Ativan decreased to 0.5mg PO q4h because was too sedated (previous dose 1mg PO q4h) - Haldol 1mg PO/SL q4h PRN Non-small cell lung cancer with metastasis to brain, spine: - Discussed with palliative care plan to go on Hospice with plan for placement Sunday - Received 10 sessions of radiation therapy, had consult with radiation oncologist Sunday and agreed with family on no further Radiation - Continue fentanyl 50 g patch daily, Roxanol 5-10 mg for breakthrough pain and Ativan 0.5 mg every 4 hours as needed, Haldol 1mg PO/SL Q4h PRN agitation for agitation - POLST completed with Resuscitation changed to DO NOT RESUSCITATE, comfort measures only Constipation - Bisacodyl Suppository (Received one yesterday as well) - No bowel movements since admission Supratherapeutic INR - Resolved - INR down to 1.2 - Warfarin discontinued as going on home hospice Acute hypoxemic respiratory failure secondary to large left pleural effusion - Status post thoracocentesis, cytology revealed mesothelial cells - First culture from Thoracentesis grew Staph Species - Oxygen via NC as needed, currently on room air - Zosyn empirically to cover GI and lung sources CAD s/p CABG x 3 vessels / Chronic sCHF with EF = 20% / HTN / Afib - Echo reports mild LV dilation and borderline LV hypertrophy. Severely reduced LVEF = 15-20%. Severely dilated LA - Currently rate controlled, continue digoxin 250mcg daily, carvedilol 3.125mg BID, lasix 20mg daily, losartan 50mg daily, warfarin held HLD - Stop simvastatin 40 mg HS DVT ppx - SCDs DO NOT RESUSCITATE Disposition: To be discharged with home hospice on Sunday Resident Tracking Resident Involvement: Resident Care Provided Care Provided: Adult Hospital Medicine Reviewed: Pt Seen/Exam by Me History Resident Physician Supervision Note: I interviewed and examined the patient. Discussed with Dr. Arango and agree with findings and plan as documented in the note. Any exceptions or clarifications are listed here: Patient is a 76-year-old male with a history of recently diagnosed metastatic non-small cell lung carcinoma who presented with progressive shortness of breath , weakness, and home nurse found his INR to be greater than 10. He is not currently having any symptoms of bleeding. His hemoglobin is fairly close to normal, but he was found to have a very large left sided pleural effusion and acute hypoxemic respiratory failure on admission. He was given vitamin K 5 mg IV 1 in the ER, followed by 2 units FFP. He underwent thoracentesis which is exudative, cytology with some atypical cells- reactive mesothelial cells versus malignant cells, now growing few Staphylococcus species out of the fluid. He and his have decided to go home with hospice. He was evaluated by radiation oncology and he will not have any further XRT either. Medical oncology has also deferred any palliative chemotherapy. Pretty much sleeping all day now and waking up moaning in pain, grabbing his left hip a lot as per family when pain meds wearing off. Still no BM in many days. Still planning for home with hospice tomorrow. His son arrived today from [place] and is at the bedside-he will be assisting pt's with home care. Vitals reviewed NAD but wakes up and moans periodically Regular rate and rhythm, 2/6 systolic ejection murmur at the right upper sternal border Lungs with diminished breath sounds at the bases bilat Abdomen positive bowel sounds soft nontender nondistended Extremities 2+ pitting edema bilaterally in the legs This is a 76 yo F with PMHx of NSCLC with mets to brain, bones, CAD s/p CABG x 3 vessels, with SVG to LAD, biventricular ICD placement in 2012, Afib, HTN, HLD , chronic systolic CHF with EF = 20%, and aortic stenosis who presents after home health nursing checked INR and was > 10, along with progressive shortness of breath and weakness. Acute hypoxemic respiratory failure/large left-sided pleural effusion-now status post thoracentesis-most likely a malignant effusion, however cytology not definitive, but could have some element of acute on chronic systolic CHF, but does not appear to be infectious-is most likely malignant in nature -he is a possible candidate for Pleurx catheter placement in the future-he should follow with thoracic surgery as an outpatient in one week with chest x- ray.we'll hold off on Pleurx at this time as per my discussion with thoracic surgery -Would not recommend restarting Coumadin as he is going home on hospice -Continue home diuretics for comfort -Discontinued statin -consider stopping other cardiac drugs on dc -continue Ativan to 0.5 mg , Haldol for agitation/anxiety -continue Roxanol and change to q1 hour, Fentanyl patch for pain -Overall very poor prognosis given his metastatic disease, severe CHF, consult palliative care appreciated-plans for home with hospice after all equipment delivered to his house on Sunday -Continue supportive care -Coumadin coagulopathy-INR greater than 10 on admission, on Coumadin at home for paroxysmal atrial fibrillation-treated with vitamin K, 2 units FFP Documented By: Eri Rosales
[2017-08-27] MEDS: MoRPHine SULFATE 5 MG/0.25 ML UDP PO PRN ×8 (00:06→13:43)
[2017-08-27] MEDS: CHECK FENTANYL PATCH PLACEMENT SCH ×2 (00:07→09:27)
[2017-08-27] MEDS: LORAZEPAM 0.5 MG TAB PO PRN ×3 (01:37→09:45)
[2017-08-27 07:38] VITALS: BP 163/104; PULSE 77; TEMP 36.4; O2SAT 94
[2017-08-27] MEDS: FENTANYL PATCH REMOVE & WASTE SCH (09:27)
[2017-08-27] MEDS ORDERED: FENTANYL PATCH REMOVE & WASTE SCH (09:29)
[2017-08-27] MEDS ORDERED: FENTANYL 50 MCG/HR TDSY TD SCH (09:30)
--- NOTE | 2017-08-27 10:18 | Palliative Care Progress Note ---
Palliative Care Progress Note Date of Service Aug 27, 2017. Subjective Pt evaluation today including: conversation w/ patient, conversation w/ family ( Terri), physical exam, chart review, conversation w/ method consultant, review of inpatient medication list -Patient remains agitated confused. Attempting to climb out of bed. -Haldol given, patient did calm down some. -Plan is for home with hospice today. See below. Review of Systems unable to obtain full ROS due to confusion Objective Vital Signs Date Time Temp Pulse Resp B/P (MAP) Pulse Ox O2 Delivery O2 Flow Rate FiO2 08/27/17 07:38 36.4 77 20 163/104 (123) 94 Room Air 08/27/17 01:00 Room Air 08/26/17 20:10 Room Air 08/26/17 19:40 36.4 80 20 154/90 (111) 93 Room Air 08/26/17 19:25 68 08/26/17 16:15 36.5 94 Room Air 08/26/17 16:00 93 Room Air 08/26/17 15:49 34.6 82 20 98/63 (75) 89 Room Air 08/26/17 11:16 64 18 144/76 (98) 94 Room Air Physical Exam General Appearance: + mild distress (agitation/restlessness) ENT: hearing grossly normal Neck: supple, no JVD Respiratory/Chest: no respiratory distress, no accessory muscle use Cardiovascular: regular rate, rhythm, no edema, + normal peripheral pulses Abdomen: normal bowel sounds, soft Neurologic/Psychiatric: + disoriented Skin: normal color Assessment and Plan Problem list: Confusion- brain mets vs. narcotic use vs. hospitalization Pain, widespread SOB/TURNER- improved after thoracentesis Pleural effusion, left- 1600ml taken during thoracentesis on 08/22/17 Widely metastatic carcinoma- likely primary lung. Brain mets, bony mets. CHF with EF 20% Goals of care Palliative care recs: -Patient is DNR, this coincides with his living will. -POLST form completed on Sunday as follows: DNR, comfort measures only, abx with comfort as the goal, no artificial hydration/nutrition. -Plan is for home with hospice on today. Sons will be here with to help care for patient. -Continue current comfort medications at home. -Great deal of support and education given to patient's by myself and Dr. Preston. She states she is comfortable taking patient home. Thank you again for this consult. Please contact me with any further palliative care needs. Discharge planning: home with Hospice
[2017-08-27] MEDS: ASPIRIN 325 MG ECTAB PO SCH (10:33)
[2017-08-27] MEDS: FUROSEMIDE 20 MG TAB PO SCH (10:33)
[2017-08-27] MEDS: CARVEDILOL 3.125 MG TAB PO SCH (10:33)
[2017-08-27] MEDS: DOCUSATE SODIUM/SENNA 50/8.6MG TAB PO SCH (10:33)
[2017-08-27] MEDS: LOSARTAN POTASSIUM 50 MG TAB PO SCH (10:33)
[2017-08-27] MEDS: SPIRONOLACTONE 25 MG TAB PO SCH (10:33)
[2017-08-27] MEDS: HALOPERIDOL 1 MG TAB PO PRN (11:03)
[2017-08-27 11:55] VITALS: BP 111/70; PULSE 66; TEMP 36.1; O2SAT 94
[2017-08-27 12:09] VITALS: BP 163/104; PULSE 77; TEMP 36.4; O2SAT 94
[2017-08-27] MEDS ORDERED: ONDA8TAB62 SL (13:28)
[2017-08-27] MEDS ORDERED: RXNS10 PO (13:28)
[2017-08-27] MEDS ORDERED: DRGTP50 TD (13:28)
[2017-08-27] MEDS ORDERED: ATV5 PO (13:28)
[2017-08-27] MEDS ORDERED: HLD1 PO (13:28)
[2017-08-27] MEDS ORDERED: SENN8.6T7 PO (13:28)
--- NOTE | 2017-08-27 13:33 | Discharge Instructions ---
Discharge Instructions Date of Service Aug 27, 2017. Admission Reason for Admission: Non-Small Cell Carcinoma Of Lung, Supratherapeutic Discharge Discharge Diagnosis / Problem: comfort care for lung cancer Discharge Goals Goal(s): Decrease discomfort Activity Recommendations Activity Limitations: resume your previous activity . Current Hospital Diet Patient's current hospital diet: Low Sodium Diet (2gm Na) Discharge Diet Recommended Diet: Low Sodium Diet (2gm Na) Pending Studies Studies pending at discharge: no Medical Emergencies . Who to Call and When: Medical Emergencies: If at any time you feel your situation is an emergency, please call 911 immediately. . Non-Emergent Contact Non-Emergency issues call your: Primary Care Provider (and hospice agency) . . "Provider Documentation" section prepared by Abel Dennison. . VTE Core Measure Inpt VTE Proph given/why not?: Jesús Redmond, SCD's
--- NOTE | 2017-08-27 13:34 | Discharge Instructions ---
Discharge Instructions Date of Service Aug 27, 2017. Admission Reason for Admission: Non-Small Cell Carcinoma Of Lung, Supratherapeutic Discharge Discharge Diagnosis / Problem: NSCLC with bony metastases Discharge Goals Goal(s): Decrease discomfort, Diagnostic testing, Therapeutic intervention Activity Recommendations Activity Limitations: resume your previous activity . Instructions / Follow-Up Instructions / Follow-Up Patient is now DNR, this coincides with his living will. POLST form completed as follows: DNR, comfort measures only, antibiotics with comfort as the goal, no artificial hydration/nutrition. Home with hospice today: Roxanol for pain - 5 to 10 mg depending on pain scale Lorazepam 0.5mg q4h PRN agitation Haldol 1mg PO/SL Q4h PRN agitation. This can be crushed and slurried to give sublingually. Zofran 4mg ODT PRN nausea Senna to keep bowels soft All other home meds have been discontinued Current Hospital Diet Patient's current hospital diet: Low Sodium Diet (2gm Na) Discharge Diet Recommended Diet: Regular Diet Pending Studies Studies pending at discharge: no Medical Emergencies . Who to Call and When: Medical Emergencies: If at any time you feel your situation is an emergency, please call 911 immediately. . Non-Emergent Contact Non-Emergency issues call your: Primary Care Provider, Specialist (Hospice) . . "Provider Documentation" section prepared by Norma Feliciano. . VTE Core Measure Inpt VTE Proph given/why not?: JULI Newman's Resident Tracking Resident Involvement: Resident Care Provided Care Provided: Adult Hospital Medicine
--- NOTE | 2017-08-27 13:50 | Discharge Summary ---
Discharge Summary Date of Service Aug 27, 2017. Discharge Summary Admission Date: Aug 21, 2017 at 14:10 Discharge Date: Aug 27, 2017 Discharge Disposition: Home with services Principal Diagnosis: NSCLC with metastases Immunizations: Have You Had Influenza Vaccine: Yes Influenza Vaccine Date: May 15, 2012 History of Tetanus Vaccine?: Yes History of Pneumococcal: Yes History of Hepatitis B Vaccine: No Consultations: heme/onc, radiation onc, palliative, pain management, pulmonology, thoracic surgery Medication Reconciliation New Medications: Ondansetron Odt (Zofran Odt) 8 Mg Soltab 4 MG SL Q6H PRN for Nausea, #30 TAB Fentanyl (Fentanyl) 50 Mcg Tdsy 50 MCG TD Q3D@0930, #30 PATCH Haloperidol (Haloperidol) 1 Mg Tab 1 MG PO Q4H PRN for agitation, #30 TAB Lorazepam (Lorazepam) 0.5 Mg Tab 0.5 MG PO Q1H PRN for Anxiety, #30 TAB Morphine Sulfate (Morphine Sulfate) 10 Mg/0.5 Ml Soln 5 MG PO Q1H PRN for Pain for 30 Days, #20 ML Follow dose instructions Sennosides-Docusate Sodium (Senokot S) 1 Tab Tab 1 TAB PO BID for 30 Days, #30 TAB Discontinued Medications: Aspirin Enteric Coated (Ecotrin Or Generic) 325 Mg Ectab 325 MG PO QAM, TAB Carvedilol (Coreg) 3.125 Mg Tab 3.125 MG PO BID, TAB Digoxin (Digitek) 0.25 Mg Tab 0.25 MG PO HS Fentanyl (Fentanyl) 12 Mcg Tdsy 25 MCG TD [id number] Furosemide (Lasix) 20 Mg Tab 20 MG PO QAM, TAB Glimepiride (Glimepiride) 4 Mg Tab 4 MG PO BID Losartan Potassium (Cozaar) 50 Mg Tab 50 MG PO QAM Metformin Hcl (Glucophage) 500 Mg Tab 1000 MG PO BID, TAB Oxycodone/Acetaminophen 7.5MG/325MG (Percocet 7.5MG/325MG) Tab 1 TAB PO Q4 PRN for Pain, TAB PRN PAIN Simvastatin (Zocor) 80 Mg Tab 40 MG PO QPM, TAB Spironolactone (Aldactone) 25 Mg Tab 25 MG PO QAM, TAB Warfarin Sod (Jantoven) 5 Mg Tab 5 MG PO [id number], TAB Warfarin Sodium (Warfarin Sodium) 7.5 Mg Tab 7.5 MG PO tues-sun, TAB Discharge Exam Patient agitated, minimally responding to questions Unable to attain detailed ROS due to AMS. 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 Patient is now DNR, this coincides with his living will. POLST form completed as follows: DNR, comfort measures only, antibiotics with comfort as the goal, no artificial hydration/nutrition. Home with hospice today: Roxanol for pain - 5 to 10 mg depending on pain scale Lorazepam 0.5mg q4h PRN agitation. Higher dose was causing excessive sedation. Haldol 1mg PO/SL Q4h PRN agitation. This can be crushed and slurried to give sublingually. Zofran 4mg ODT PRN nausea Senna BID to keep bowels soft All other home meds have been discontinued. Resident Physician Supervision Note: I interviewed and examined the patient. Discussed with Dr. Feliciano and agree with findings and plan as documented in the note. Any exceptions or clarifications are listed here: None Documented By: Abel Dennison appearing comfortable nad breathing unlabored no pallor or icterus metastatic cancer - home comfort care, hospice Total Time Spent: Less than 30 minutes This includes examination of the patient, discharge planning, medication reconciliation, and communication with other providers. Discharge Instructions Please refer to the electronic Patient Visit Report (Discharge Instructions) for additional information. Additional Copies To Stuart Johnston M.D.
== END 2017-08-27 14:00 | disposition hospice, home (50) | DRG 813 ==
LOC: EDBD 10:48 → C.EDC 10:49 → C.4E 14:10 → ENRESERV 15:35
PROVIDERS: ADMIT Family Medicine; ATTEND Family Medicine
PROC: 0W9B3ZX Drainage of Left Pleural Cavity, Percutaneous Approach, Diagnostic (ICD-10-PCS; principal; 2017-08-22)
DX: D68.32 Hemorrhagic disorder due to extrinsic circulating anticoagulants (principal); J96.01 Acute respiratory failure with hypoxia; I50.23 Acute on chronic systolic (congestive) heart failure; J91.0 Malignant pleural effusion; C34.90 Malignant neoplasm of unspecified part of unspecified bronchus or lung; C79.51 Secondary malignant neoplasm of bone; C79.31 Secondary malignant neoplasm of brain; Z51.5 Encounter for palliative care; G89.3 Neoplasm related pain (acute) (chronic); R10.11 Right upper quadrant pain; R45.1 Restlessness and agitation; K59.00 Constipation, unspecified; B95.61 Methicillin susceptible Staphylococcus aureus infection as the cause of diseases classified elsewhere; I11.0 Hypertensive heart disease with heart failure; I48.0 Paroxysmal atrial fibrillation; E11.9 Type 2 diabetes mellitus without complications; I25.10 Atherosclerotic heart disease of native coronary artery without angina pectoris; I35.0 Nonrheumatic aortic (valve) stenosis; E78.5 Hyperlipidemia, unspecified; Z79.899 Other long term (current) drug therapy; Z79.01 Long term (current) use of anticoagulants; Z79.891 Long term (current) use of opiate analgesic; Z79.82 Long term (current) use of aspirin; Z79.84 Long term (current) use of oral hypoglycemic drugs; Z66 Do not resuscitate; Z95.0 Presence of cardiac pacemaker; Z95.1 Presence of aortocoronary bypass graft; Z92.3 Personal history of irradiation; Z87.891 Personal history of nicotine dependence